=== PATIENT | male | born 1930 | race Caucasian/White ===

== ENCOUNTER 2017-01-11 10:55 | Inpatient (IN) | payer MEDICARE, OTHER ==
--- NOTE | 2017-01-11 11:13 | EDM.PDOC ---
ED HPI GENERAL MEDICAL PROBLEM - General Chief Complaint: Lower Extremity Injury/Pain Stated Complaint: [facility] Time Seen by Provider: 01/11/17 11:13 Source of Information: Reports: Patient History Limitations: Reports: No Limitations - History of Present Illness INITIAL COMMENTS - FREE TEXT/NARRATIVE: 86-year-old male found on the [facility] at the [facility] this morning. Witnessed fall. Complaining of pain right hip and thigh area. Piece had previous surgery on his right hip. It's unclear whether he hit his head or whether there was any loss of consciousness. Patient is verbal and states his pain is mostly in his right hip. Denies pain in his ribs shoulders arms wrists or hands. Denies any back pain. Denies any neck pain. Onset: Today Onset Date: 01/11/17 Onset Time: 10:10 (Found on floor at the [facility]. Unwitnessed fall) Duration: Minutes: Location: Reports: Lower Extremity, Right Severity: Mild Improves with: Reports: None Worsens with: Reports: None Context: Reports: Other Associated Symptoms: Reports: Confusion, Shortness of Breath (At rest). 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 They did not identify any outward signs of trauma therefore they did not start an IV and he did not receive any pain medication.) - Related Data Allergies Allergy/AdvReac Type Severity Reaction Status Date / Time No Known Allergies Allergy Verified 01/11/17 11:10 Home Meds: Home Meds Acetaminophen [Tylenol] 500 mg PO TID 01/11/17 [History] Amoxicillin 2,000 mg PO ASDIRECTED 01/11/17 [History] Bumetanide [Bumex] 1 mg PO BID 01/11/17 [History] Citalopram [Celexa] 30 mg PO BEDTIME 01/11/17 [History] Diltiazem [Cardizem CD] 240 mg PO DAILY 01/11/17 [History] Donepezil HCl [Aricept] 10 mg PO DAILY 01/11/17 [History] FA/Lycopene/Lut/MV,Ca,Iron,Min [Centrum] 1 tab PO DAILY 01/11/17 [History] Finasteride [Proscar] 5 mg PO BEDTIME 01/11/17 [History] Insulin Glarg,Human.Rec.Analog [LantUS Solostar] 10 units INJECT DAILY 01/11/17 [History] LORazepam [Ativan] 1 mg PO BID 01/11/17 [History] Lisinopril 20 mg PO BID 01/11/17 [History] Loperamide [Imodium] 2 mg PO ASDIRECTED PRN 01/11/17 [History] Memantine [Namenda] 10 mg PO BID 01/11/17 [History] Metolazone 2.5 mg PO MOWEFR 01/11/17 [History] [place]-3 Fatty Acids [[place]-3] 360 - 1,200 mg PO DAILY 01/11/17 [History] Pantoprazole Sodium [Protonix] 20 mg PO DAILY 01/11/17 [History] Psyllium Seed (With Sugar) [Metamucil Fiber Wafer] 2 wafer PO TID 01/11/17 [ History] Refresh Eye Drops 2 - 3 drop TOP ASDIRECTED PRN 01/11/17 [History] Simvastatin [Zocor] 10 mg PO DAILY 01/11/17 [History] Tamsulosin HCl [Flomax] 0.4 mg PO DAILY 01/11/17 [History] Vit A,C & E/Lutein/Minerals [Healthy Eyes] 1 tab PO DAILY 01/11/17 [History] medroxyPROGESTERone Acetate [Depo-Provera] 150 mg INJECT ASDIRECTED 01/11/17 [ History] traMADol [Ultram] 50 mg PO Q12H PRN 01/11/17 [History] Past Medical History Cardiovascular History: Reports: Bypass, CAD, High Cholesterol, Hypertension Gastrointestinal History: Reports: Chronic Constipation, GERD Genitourinary History: Reports: BPH, Other (See Below) (Reported urinary incontinence. 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 Has had right shoulder surgery 2) Skin: Reports: Bruising (Bruises easily) Neurological: Reports: Confusion (Moderate confusion. Early dementia changes evident.), Difficulty Walking Psychiatric: Reports: Confusion, Depression ED EXAM, GENERAL - Physical Exam Exam: See Below Exam Limited By: Other (Patient tries to answer most questions and I feel the answers are appropriate. He has a lethargic appearance and a minimal facial expression suggestive of Parkinson's disease.) General Appearance: Lethargic, Other (Minimal facial expressions) Eye Exam: Bilateral Eye: Normal Inspection Nose: Normal Inspection Throat/Mouth: Normal Inspection, Other (Tongue is a little on the dry side.) Head: Atraumatic, Normocephalic Neck: Normal Inspection, Supple, Non-Tender, Full Range of Motion Respiratory/Chest: No Respiratory Distress, Lungs Clear, Normal Breath Sounds, No Accessory Muscle Use, Other (No pain on compression of his ribs and sternum.) Cardiovascular: Regular Rate, Rhythm, No Edema, No Gallop, No Murmur, No Rub, Other (Well-healed midline sternotomy incision.). No: Normal Peripheral Pulses Peripheral Pulses: 1+: Posterior Tibial (L), Posterior Tibial (R), Dorsalis Pedis (L), Dorsalis Pedis (R) GI/Abdominal: Normal Bowel Sounds, Soft, Non-Tender, No Organomegaly, Other Back Exam: Normal Inspection, Full Range of Motion, Other (No evidence of any contusions abrasions or localized pain to any of the spinous processes of his back.) Extremities: Other (Patient has a well-healed right lateral hip incision scar. He is stiff on movement of his lower extremities and will not hardly allow me to bend them at the knee or hip to assess function. Mild pain on lifting the right leg off the gurney. No evidence of any injuries to his hands wrists elbows or shoulders. Knees are intact.) Neurological: CN II-XII Intact, Slow to Respond Psychiatric: Flat Affect Skin Exam: Warm, Dry, Intact, Normal Color, No Rash, Other (Bruising dorsal aspect of left hand which appears to be several days old.) EKG INTERPRETATION EKG Date: 01/11/17 Time: 11:30 Rhythm: NSR Rate (Beats/Min): 82 [place]: Normal P-Wave: Present QRS: RBBB (First-degree AV block) ST-T: Other (T-wave inversion V3 V4 nonspecific. 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 Care 01/11/17 13:45 Ordered PC] Q24H Urinary Catheter Assessment [RC] ASDIRECTED Care 01/11/17 13:41 Active Sodium Chloride 0.9% [Normal Saline] 1,000 ml Med 01/11/17 11:30 Active IV ASDIRECTED Medication Orders Sodium Chloride (Normal Saline) 1,000 mls @ 150 mls/hr IV ASDIRECTED BRENDA Last Admin: 01/11/17 11:40 Dose: 150 mls/hr Labs: Laboratory Tests 01/11/17 01/11/17 01/11/17 Range/Units 11:04 11:04 11:04 WBC 12.33 H (4.23-9.07) K/mm3 RBC 3.59 L (4.63-6.08) M/mm3 Hgb 11.7 L (13.7-17.5) gm/L Hct 34.6 L (40.1-51.0) % MCV 96.4 H (79.0-92.2) fl MCH 32.6 H (25.7-32.2) pg MCHC 33.8 (32.2-35.5) g/dl RDW Std Deviation 43.6 (35.1-43.9) fL Plt Count 216 (163-337) K/mm3 MPV 10.5 (9.4-12.3) fl Neutrophils % (Manual) 76 H (40-60) % Band Neutrophils % 0 (0-10) % Lymphocytes % (Manual) 5 L (20-40) % Atypical Lymphs % 14 % Monocytes % (Manual) 5 (2-10) % Eosinophils % (Manual) 0 L (0.8-7.0) % Basophils % (Manual) 0 L (0.2-1.2) Platelet Estimate Adequate Hypochromasia 1+ slight Anisocytosis 1+ slight RBC Morph Comment Abnormal PT (8.0-13.0) SECONDS INR APTT (22-36) SECONDS Sodium 139 (136-145) mEq/L Potassium 3.7 (3.5-5.1) mEq/L Chloride 100 (98-107) mEq/L Carbon Dioxide 26 (21-32) mEq/L Anion Gap 16.7 H (5-15) BUN 92 H (7-18) mg/dL Creatinine 4.5 H (0.7-1.3) mg/dL Est Cr Clr Drug Dosing TNP Estimated GFR (MDRD) 12 (>60) mL/min BUN/Creatinine Ratio 20.4 H (14-18) Glucose 139 H (83-115) mg/dL Calcium 9.5 (8.5-10.1) mg/dL Total Bilirubin 0.9 (0.2-1.0) mg/dL AST 23 (15-37) U/L ALT 27 (16-63) U/L Alkaline Phosphatase 46 (46-116) U/L Troponin I < 0.017 (0.00-0.056) ng/mL NT-Pro-B Natriuret Pep 924 H (0-450) pg/mL Total Protein 6.4 (6.4-8.2) g/dl Albumin 3.3 L (3.4-5.0) g/dl Globulin 3.1 gm/dL Albumin/Globulin Ratio 1.1 (1-2) Blood Type B POSITIVE 01/11/17 Range/Units 11:04 WBC (4.23-9.07) K/mm3 RBC (4.63-6.08) M/mm3 Hgb (13.7-17.5) gm/L Hct (40.1-51.0) % MCV (79.0-92.2) fl MCH (25.7-32.2) pg MCHC (32.2-35.5) g/dl RDW Std Deviation (35.1-43.9) fL Plt Count (163-337) K/mm3 MPV (9.4-12.3) fl Neutrophils % (Manual) (40-60) % Band Neutrophils % (0-10) % Lymphocytes % (Manual) (20-40) % Atypical Lymphs % % Monocytes % (Manual) (2-10) % Eosinophils % (Manual) (0.8-7.0) % Basophils % (Manual) (0.2-1.2) Platelet Estimate Hypochromasia Anisocytosis RBC Morph Comment PT 11.1 (8.0-13.0) SECONDS INR 1.02 APTT 29 (22-36) SECONDS Sodium (136-145) mEq/L Potassium (3.5-5.1) mEq/L Chloride (98-107) mEq/L Carbon Dioxide (21-32) mEq/L Anion Gap (5-15) BUN (7-18) mg/dL Creatinine (0.7-1.3) mg/dL Est Cr Clr Drug Dosing Estimated GFR (MDRD) (>60) mL/min BUN/Creatinine Ratio (14-18) Glucose (83-115) mg/dL Calcium (8.5-10.1) mg/dL Total Bilirubin (0.2-1.0) mg/dL AST (15-37) U/L ALT (16-63) U/L Alkaline Phosphatase (46-116) U/L Troponin I (0.00-0.056) ng/mL NT-Pro-B Natriuret Pep (0-450) pg/mL Total Protein (6.4-8.2) g/dl Albumin (3.4-5.0) g/dl Globulin gm/dL Albumin/Globulin Ratio (1-2) Blood Type Meds: Medications Generic Name Dose Route Start Last Admin Trade Name Freq PRN Reason Stop Dose Admin Sodium Chloride 1,000 mls @ 150 mls/hr 01/11/17 11:30 01/11/17 11:40 Normal Saline IV 150 mls/hr ASDIRECTED BRENDA Administration Discontinued Medications Generic Name Dose Route Start Last Admin Trade Name [place] PRN Reason Stop Dose Admin Fentanyl 50 mcg 01/11/17 11:22 01/11/17 11:35 Sublimaze IVPUSH 01/11/17 11:23 50 mcg ONETIME ONE Administration Lidocaine HCl 10 ml 01/11/17 13:57 Xylocaine 2% Jelly MUCMEM 01/11/17 13:58 ONETIME ONE - Radiology Interpretation Free Text/Narrative:: 86-year-old male brought to the ED after being found on the floor his [facility] room after suffering a fall. Was unwitnessed and therefore it's unclear how her what happened. There is some suggestion by the nursing staff that he hit his head. I could find no outward signs of head trauma however. 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 At any rate he complains of pain in his right hip which is been previously repaired. It appears that he's had a total hip replacement. I can find no other signs of injury to his spine neck upper extremities or knees etc. Plan will be head CT routine labs ECG. Pelvis films and right femur. IV will be normal saline 150 mils per hour. Given fentanyl 50 g IV for pain relief. - Re-Assessments/Exams Free Text/Narrative Re-Assessment/Exam: 01/11/17 11:47 ECG does show sinus rhythm at 82/m with a rather short OK interval. There is a right bundle branch block pattern. There is T-wave inversion V2 to the 4. There is small Q waves in II, III, and F aVF suggestive of an old inferior wall myocardial infarction. There is decreased voltage in the limb leads. 01/11/17 12:34 CT of the head reveals advanced degenerative changes particularly with small vessel ischemic changes in both the white and le matter. There is small vessel ischemic changes in various both post basal ganglia with is encephalomalacia of both anterior posterior horns of the lateral ventricles. Is no sign of intracranial hemorrhage or mass effect. There is no skull fracture. X-ray of the pelvis is within normal limits. 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 X-ray of the right femur shows no fracture below his prosthesis. Therefore appears to have suffered contusions only. Chest x-ray also revealed a marked cardiomegaly with no signs of significant failure 01/11/17 12:40 lab work reveals a mildly elevated white count at 12.33 with 76% neutrophils and 0% bands hemoglobin is a little on the low side 11.7 hematocrit is 34.6 platelets 216,000. There is 14% atypical lymphocytes reported and therefore a peripheral smear needs to be done. Chemistry shows a sodium of 139 potassium 3.7 chloride 100 bicarbonate 24. And a gap is slightly elevated at 16.7 BUNs and is markedly elevated at 92 creatinine is 4.5.eGFR is only 12. This is stage IV chronic kidney disease. BNP is elevated at 924. Troponin is less than 0.017. I therefore contacted his usual care provider Dr. Kelby Damon and he indicates that these levels are markedly elevated compared to his norm. Of note I do not have any chart notes or labs to compare to. It appears that he is therefore severely volume depleted. I will check his med list thoroughly to see if there is something that precipitated acute decline in his renal function. No notes indicate that his dementia is fairly severe and that he tends to be incontinent of urine and therefore is in a depends. I will have a bladder scan done to see if he is in retention causing his acute renal insufficiency 01/11/17 13:27 year bladder scan suggests 560 mils of urine within the bladder suggesting obstruction. Therefore Whitmore catheter will be placed with plans to leave it in place to relieve potential obstructive uropathy. There is some suggestion in the notes that he has only one kidney and was perhaps born this way. We'll have a CT of the abdomen done per renal protocol to see if there is anything else going on in the abdomen and which kidney is present and is ready disease obvious within this kidney. 01/11/17 13:55 the right kidney is present the left is absent on CT. Diffuse atherosclerotic calcification throughout the aorta and particularly the common iliac arteries bilaterally. Pancreas is mildly atrophic. Liver shows a slightly inhomogenous appearance but without contrast unable to define if the cystic lesions within the liver itself. 01/11/17 14:27 currently he's had about 900 mils of urine drainage after Whitmore catheter placement. I will discuss case with hospitalist --Dr Ye he may develop post about obstructive uropathy diuresis. CODE STATUS is listed as DO NOT RESUSCITATE. Departure - Departure Time of Disposition: 14:31 Disposition: Admitted As Inpatient 64 Condition: Poor Clinical Impression: Chronic renal insufficiency, stage IV (severe), Obstructive uropathy Dementia Qualifiers: Dementia type: Alzheimer's disease Alzheimer's disease onset: late-onset Dementia behavioral disturbance: without behavioral disturbance Qualified Code(s ): G30.1 - Alzheimer's disease with late onset Fall as cause of accidental injury at home as place of occurrence Qualifiers: Encounter type: initial encounter Qualified Code(s): W19.XXXA - Unspecified fall, initial encounter Congestive heart failure Qualifiers: Congestive heart failure type: diastolic Congestive heart failure chronicity: chronic Qualified Code(s): I50.32 - Chronic diastolic (congestive) heart failure - Discharge Information Referrals: Mane Barnhart MD [Primary Care Provider] - Forms: ED Department Discharge - My Orders Last 24 Hours: My Active Orders 01/11/17 11:22 EKG Documentation Completion [RC] STAT 01/11/17 11:30 Sodium Chloride 0.9% [Normal Saline] 1,000 ml IV ASDIRECTED 01/11/17 13:41 Urinary Catheter Assessment [RC] ASDIRECTED 01/11/17 13:45 Whitmore Catheter Insertion [Insert Urinary Catheter] [OM.PC] Q24H - Assessment/Plan Last 24 Hours: My Active Orders 01/11/17 11:22 EKG Documentation Completion [RC] STAT 01/11/17 11:30 Sodium Chloride 0.9% [Normal Saline] 1,000 ml IV ASDIRECTED 01/11/17 13:41 Urinary Catheter Assessment [RC] ASDIRECTED 01/11/17 13:45 Whitmore Catheter Insertion [Insert Urinary Catheter] [OM.PC] Q24H
[2017-01-11] MEDS ORDERED: fentaNYL 100 MCG/2 ML SDV IVPUSH ONE (11:22)
[2017-01-11] MEDS: Sodium Chloride 0.9% 1,000 ML IV SCH ×2 (11:40→19:40)
--- NOTE | 2017-01-11 12:39 | CT ---
Head CT Technique: Multiple axial sections through the brain were obtained. Intravenous contrast was not utilized. Comparison: No previous intracranial imaging. Findings: Ventricles along with basal cisterns and sulci over convexities are moderately prominent. Atherosclerotic calcification is seen within the carotid siphon and within the vertebral vessels. Mild to moderate diminished density is noted within the periventricular and subcortical white matter as well as within portions of the basal ganglia which is compatible with small vessel ischemic demyelination change. No other abnormal parenchymal densities are seen. Incidental calcifications along the interhemispheric falx are noted. No midline shift or mass effect is seen. Bone window settings were reviewed which shows mild mucosal thickening within the right maxillary sinus as well as within the ethmoid sinuses. No acute calvarial abnormality is identified. Impression: 1. Senescent change as described above. Mild sinus findings which are likely incidental. 2. Nothing acute is identified on noncontrast head CT exam. Diagnostic code #2
[2017-01-11] MEDS ORDERED: Lidocaine 2% Jelly 10 ML Urojet MUCMEM ONE (13:57)
--- NOTE | 2017-01-11 14:20 | CT ---
CT abdomen and pelvis Technique: Multiple axial sections were obtained from above the dome of the diaphragm inferiorly through the pubic symphysis. Intravenous and oral contrast not utilized. Comparison: No previous CT imaging. Findings: Visualized lung bases shows nothing acute. Noncontrast appearance of the liver shows a low-density lesion within the dome of the right lobe of the liver which appears next to the ligamentum teres fissure and either represents small amount of adjacent fat or small cyst. Spleen appears within normal limits. Adrenal glands show no nodule. Pancreas appears within normal limits. Left kidney not seen. Right kidney shows vascular calcification without hydronephrosis. Aorta shows diffuse atherosclerotic change without aneurysmal dilatation. No retroperitoneal adenopathy is seen. No mesenteric abnormalities are noted. Diverticuli are seen within the sigmoid colon with no inflammatory change. Artifact noted within the pelvis from bilateral hip prosthesis. Diffuse degenerative change is seen throughout the lumbar spine. Catheter is seen within the urethra which presumably terminates within a nonvisualized portion of the bladder scattered from artifact from bilateral hip prosthesis. Impression: 1. Multiple findings which are felt to be incidental. Nothing acute is appreciated on noncontrast CT study of the abdomen and pelvis. Diagnostic code #2
--- NOTE | 2017-01-11 14:23 | CR ---
Pelvis: AP view of the pelvis was obtained. Bilateral hip prosthesis are seen. Degenerative change is noted within the lower lumbar spine with disc space narrowing and osteophytes. Sacroiliac joints are within normal limits. Bony structures are osteopenic. Vascular calcification is noted. No acute bony abnormality is identified. Impression: 1. Findings as noted above. Nothing acute is appreciated. Diagnostic code #2
--- NOTE | 2017-01-11 14:23 | CR ---
Right femur: AP and lateral views of the right femur were obtained. Comparison: Previous right hip study of 07/28/11. Hip prosthesis is seen. Components are aligned. Vascular calcification is seen. Degenerative change is partially visualized within the knee. Bony structures are osteopenic. No acute fracture or other bony abnormality is seen. Impression: 1. Incidental findings. Nothing acute is appreciated on two-view right femur study. Diagnostic code #2
--- NOTE | 2017-01-11 14:23 | CR ---
Chest: Frontal view of the chest was obtained. Comparison: Previous chest x-ray of 07/28/11. Heart is enlarged. Tortuous thoracic aorta is seen. Right shoulder prosthesis is noted. Lungs are clear with no acute infiltrates. Impression: 1. Findings as described above. Nothing acute is appreciated. Diagnostic code #2
[2017-01-11] MEDS ORDERED: cefTRIAXone 2 GM in Sodium Chloride 0.9% 100 ML IV SCH (15:30)
[2017-01-11] MEDS ORDERED: 50% Dextrose in Water 50 ML Syringe IVPUSH PRN (15:30)
[2017-01-11] MEDS ORDERED: MEDROXYPROGESTERONE ACETATE 150 MG INJECT SCH (15:30)
--- NOTE | 2017-01-11 15:46 | PCM.HP ---
H&P History of Present Illness - General Date of Service: 01/11/17 Admit Problem/Dx: Admission Diagnosis/Problem Admission Diagnosis/Problem Renal insufficiency Source of Information: Old Records, Provider, RN Notes Reviewed History Limitations: Reports: No Limitations, Altered Mental Status - History of Present Illness Onset of Symptoms: Reports: Sudden Symptom Onset Date: 01/11/17 Duration of Symptoms: Reports: Hour(s):, Getting Worse Location: Reports: Lower Extremity, Right, Generalized Severity: Moderate Improves with: Reports: None Worsens with: Reports: None Associated Symptoms: Reports: Confusion, Weakness - Related Data Allergies/Adverse Reactions: Allergies Allergy/AdvReac Type Severity Reaction Status Date / Time No Known Allergies Allergy Verified 01/11/17 11:10 Home Medications: Home Meds Acetaminophen [Tylenol] 500 mg PO TID 01/11/17 [History] Amoxicillin 2,000 mg PO ASDIRECTED 01/11/17 [History] Bumetanide [Bumex] 1 mg PO BID 01/11/17 [History] Citalopram [Celexa] 30 mg PO BEDTIME 01/11/17 [History] Diltiazem [Cardizem CD] 240 mg PO DAILY 01/11/17 [History] Donepezil HCl [Aricept] 10 mg PO DAILY 01/11/17 [History] FA/Lycopene/Lut/MV,Ca,Iron,Min [Centrum] 1 tab PO DAILY 01/11/17 [History] Finasteride [Proscar] 5 mg PO BEDTIME 01/11/17 [History] Insulin Glarg,Human.Rec.Analog [LantUS Solostar] 10 units INJECT DAILY 01/11/17 [History] LORazepam [Ativan] 1 mg PO BID 01/11/17 [History] Lisinopril 20 mg PO BID 01/11/17 [History] Loperamide [Imodium] 2 mg PO ASDIRECTED PRN 01/11/17 [History] Memantine [Namenda] 10 mg PO BID 01/11/17 [History] Metolazone 2.5 mg PO MOWEFR 01/11/17 [History] [place]-3 Fatty Acids [[place]-3] 360 - 1,200 mg PO DAILY 01/11/17 [History] Pantoprazole Sodium [Protonix] 20 mg PO DAILY 01/11/17 [History] Psyllium Seed (With Sugar) [Metamucil Fiber Wafer] 2 wafer PO TID 01/11/17 [ History] Refresh Eye Drops 2 - 3 drop TOP ASDIRECTED PRN 01/11/17 [History] Simvastatin [Zocor] 10 mg PO DAILY 01/11/17 [History] Tamsulosin HCl [Flomax] 0.4 mg PO DAILY 01/11/17 [History] Vit A,C & E/Lutein/Minerals [Healthy Eyes] 1 tab PO DAILY 01/11/17 [History] medroxyPROGESTERone Acetate [Depo-Provera] 150 mg INJECT ASDIRECTED 01/11/17 [ History] traMADol [Ultram] 50 mg PO Q12H PRN 01/11/17 [History] Past Medical History Cardiovascular History: Reports: Bypass, CAD, High Cholesterol, Hypertension Gastrointestinal History: Reports: Chronic Constipation, GERD Genitourinary History: Reports: BPH, Other (See Below) (Reported urinary incontinence. 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 ) Musculoskeletal History: Reports: Osteoarthritis, Other (See Below) (Previous right hip surgery) Neurological History: Reports: Alzheimers Disease Psychiatric History: Reports: Anxiety Endocrine/Metabolic History: Reports: Diabetes, Type II (On insulin for blood sugar control.), Obesity/BMI 30+ - Past Surgical History Cardiovascular Surgical History: Reports: Coronary Artery Bypass Musculoskeletal Surgical History: Reports: Other (See Below) Other Musculoskeletal Surgeries/Procedures:: difficulty walking; right hip surgery Social & Family History - Tobacco Use Smoking Status *Q: Unknown Ever Smoked - Caffeine Use Caffeine Use: Reports: Coffee - Recreational Drug Use Recreational Drug Use: No - Living Situation & Occupation Living situation: Reports: Extended Care Facility 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 Review of Systems - Review of Systems: Review Of Systems: See Below Exam - Vital Signs Vital Signs: Last Vital Signs Temp 36.9 C 01/11/17 11:03 Pulse 81 01/11/17 11:03 Resp 17 01/11/17 11:03 BP 125/44 L 01/11/17 11:03 Pulse Ox 96 01/11/17 11:03 Weight: 103.419 kg - Patient Data Lab Results Last 24 hrs: Laboratory Results - last 24 hr 01/11/17 Range/Units 14:45 Urine Color Yellow (Yellow) Urine Appearance Clear (Clear) Urine pH 6.0 (5.0-8.0) Ur Specific [place] 1.015 (1.005-1.030) Urine Protein Trace H (Negative) Urine Glucose (UA) Negative (Negative) Urine Ketones Negative (Negative) Urine Occult Blood 1+ H (Negative) Urine Nitrite Negative (Negative) Urine Bilirubin Negative (Negative) Urine Urobilinogen 0.2 (0.2-1.0) Ur Leukocyte Esterase Negative (Negative) Result Diagrams: 01/11/17 11:04 01/11/17 11:04 *Q Meaningful Use (ADM) - VTE *Q VTE Criteria *Q: - Stroke *Q Stroke Criteria *Q: - AMI *Q AMI Criteria *Q: Orders Last 24hrs: Active Orders 24 hr Category Date Time Status Antiembolic Devices [RC] PER UNIT ROUTINE Care 01/11/17 15:28 Ordered Bedrest Bathroom Privileges [RC] ASDIRECTED Care 01/11/17 15:21 Ordered Blood Glucose Check, Bedside [RC] Q6HR Care 01/11/17 15:30 Ordered Vital Signs [RC] PER UNIT ROUTINE Care 01/11/17 15:21 Ordered NPO [Nothing Per Oral Diet] [DIET] Diet 01/11/17 Dinner Active Renal Non-Dialysis Diet [DIET] Diet 01/12/17 Breakfast Ordered BMP [BASIC METABOLIC PANEL,BMP] [CHEM] DAILY Lab 01/12/17 05:00 Ordered BMP [BASIC METABOLIC PANEL,BMP] [CHEM] DAILY Lab 01/13/17 05:00 Ordered BMP [BASIC METABOLIC PANEL,BMP] [CHEM] DAILY Lab 01/14/17 05:00 Ordered BMP [BASIC METABOLIC PANEL,BMP] [CHEM] DAILY Lab 01/15/17 05:00 Ordered CBC WITH AUTO DIFF [HEME] DAILY Lab 01/12/17 05:00 Ordered CBC WITH AUTO DIFF [HEME] DAILY Lab 01/13/17 05:00 Ordered CBC WITH AUTO DIFF [HEME] DAILY Lab 01/14/17 05:00 Ordered CBC WITH AUTO DIFF [HEME] DAILY Lab 01/15/17 05:00 Ordered CRP [C-REACTIVE PROTEIN] [CHEM] DAILY Lab 01/12/17 05:00 Ordered CRP [C-REACTIVE PROTEIN] [CHEM] DAILY Lab 01/13/17 05:00 Ordered CRP [C-REACTIVE PROTEIN] [CHEM] DAILY Lab 01/14/17 05:00 Ordered CRP [C-REACTIVE PROTEIN] [CHEM] DAILY Lab 01/15/17 05:00 Ordered MAGNESIUM [CHEM] DAILY Lab 01/12/17 05:00 Ordered MAGNESIUM [CHEM] DAILY Lab 01/13/17 05:00 Ordered MAGNESIUM [CHEM] DAILY Lab 01/14/17 05:00 Ordered MAGNESIUM [CHEM] DAILY Lab 01/15/17 05:00 Ordered URINALYSIS W/MICROSCOPIC [UA W/MICROSCOPIC] [URIN] Stat Lab 01/11/17 14:45 Results Citalopram [Celexa] Med 01/11/17 21:00 Ordered 30 mg PO BEDTIME Dextrose 50% in Water Med 01/11/17 15:30 Ordered 50 ml IVPUSH ASDIRECTED PRN Diltiazem Med 01/12/17 09:00 Ordered 240 mg PO DAILY Donepezil [Aricept] Med 01/12/17 09:00 Ordered 10 mg PO DAILY Enoxaparin [Lovenox] Med 01/12/17 09:00 Ordered 30 mg SUBCUT DAILY Finasteride [Proscar] Med 01/11/17 21:00 Ordered 5 mg PO BEDTIME Insulin Aspart [NovoLOG] Med 01/11/17 15:30 Ordered See Protocol SUBCUT QIDACANDBED LORazepam [Ativan] Med 01/11/17 21:00 Ordered 1 mg PO BID Memantine [Namenda] Med 01/11/17 21:00 Ordered 10 mg PO BID Simvastatin [Zocor] Med 01/12/17 09:00 Ordered 10 mg PO DAILY Tamsulosin [Flomax] Med 01/12/17 09:00 Ordered 0.4 mg PO DAILY cefTRIAXone [Rocephin] 2 gm Med 01/11/17 15:30 Ordered Sodium Chloride 0.9% [Normal Saline] 100 ml IV Q24H NAVYA Hose [Antiembolic Hose] [OM.PC] Routine Oth 01/11/17 15:28 Ordered Code Status [Resuscitation Status] Routine Resus Stat 01/11/17 15:22 Ordered Medication Orders Citalopram Hydrobromide (Celexa) 30 mg PO BEDTIME [facility] Dextrose/Water (Dextrose 50% In Water) 50 ml IVPUSH ASDIRECTED PRN PRN Reason: Hypoglycemia Diltiazem HCl (Dilacor Xr) 240 mg PO DAILY [facility] Donepezil HCl (Aricept) 10 mg PO DAILY [facility] Enoxaparin Sodium (Lovenox) 30 mg SUBCUT DAILY [facility] Finasteride (Proscar) 5 mg PO BEDTIME [facility] Sodium Chloride (Normal Saline) 1,000 mls @ 150 mls/hr IV ASDIRECTED [facility] Last Admin: 01/11/17 11:40 Dose: 150 mls/hr Ceftriaxone Sodium 2 gm/ (Sodium Chloride) 100 mls @ 200 mls/hr IV Q24H [facility] Insulin Aspart (Novolog) 0 unit SUBCUT QIDACANDBED [facility] PRN Reason: Protocol Lorazepam (Ativan) 1 mg PO BID [facility] Memantine (Namenda) 10 mg PO BID [facility] Simvastatin (Zocor) 10 mg PO DAILY [facility] Tamsulosin HCl (Flomax) 0.4 mg PO DAILY [facility]
--- NOTE | 2017-01-11 16:04 | PCM.HP ---
H&P History of Present Illness - General Date of Service: 01/11/17 Admit Problem/Dx: Admission Diagnosis/Problem Admission Diagnosis/Problem Renal insufficiency Source of Information: Old Records, Provider, RN Notes Reviewed History Limitations: Reports: No Limitations - History of Present Illness Initial Comments - Free Text/Narative: 86 year old male [facility] resident presented after falling. Unremarkable work up for acute fracture or SPLITTER HAND bleed. He has baseline Alzheimer dementia. Had been takin Amoxicillin for a UTI. Has one kidney and probable baseline CKD III , however currently laboratory studies support CKD IV in acute failure. [facility] [place] [facility]. Onset of Symptoms: Reports: Sudden Duration of Symptoms: Reports: Hour(s):, Getting Worse Location: Reports: Lower Extremity, Right, Generalized Severity: Moderate Improves with: Reports: None Worsens with: Reports: None Associated Symptoms: Reports: Confusion, Weakness - Related Data Allergies/Adverse Reactions: Allergies Allergy/AdvReac Type Severity Reaction Status Date / Time No Known Allergies Allergy Verified 01/11/17 11:10 Home Medications: Home Meds Acetaminophen [Tylenol] 500 mg PO TID 01/11/17 [History] Amoxicillin 2,000 mg PO ASDIRECTED 01/11/17 [History] Bumetanide [Bumex] 1 mg PO BID 01/11/17 [History] Citalopram [Celexa] 30 mg PO BEDTIME 01/11/17 [History] Diltiazem [Cardizem CD] 240 mg PO DAILY 01/11/17 [History] Donepezil HCl [Aricept] 10 mg PO DAILY 01/11/17 [History] FA/Lycopene/Lut/MV,Ca,Iron,Min [Centrum] 1 tab PO DAILY 01/11/17 [History] Finasteride [Proscar] 5 mg PO BEDTIME 01/11/17 [History] Insulin Glarg,Human.Rec.Analog [LantUS Solostar] 10 units INJECT DAILY 01/11/17 [History] LORazepam [Ativan] 1 mg PO BID 01/11/17 [History] Lisinopril 20 mg PO BID 01/11/17 [History] Loperamide [Imodium] 2 mg PO ASDIRECTED PRN 01/11/17 [History] Memantine [Namenda] 10 mg PO BID 01/11/17 [History] Metolazone 2.5 mg PO MOWEFR 01/11/17 [History] [place]-3 Fatty Acids [[place]-3] 360 - 1,200 mg PO DAILY 01/11/17 [History] Pantoprazole Sodium [Protonix] 20 mg PO DAILY 01/11/17 [History] Psyllium Seed (With Sugar) [Metamucil Fiber Wafer] 2 wafer PO TID 01/11/17 [ History] Refresh Eye Drops 2 - 3 drop TOP ASDIRECTED PRN 01/11/17 [History] Simvastatin [Zocor] 10 mg PO DAILY 01/11/17 [History] Tamsulosin HCl [Flomax] 0.4 mg PO DAILY 01/11/17 [History] Vit A,C & E/Lutein/Minerals [Healthy Eyes] 1 tab PO DAILY 01/11/17 [History] medroxyPROGESTERone Acetate [Depo-Provera] 150 mg INJECT ASDIRECTED 01/11/17 [ History] traMADol [Ultram] 50 mg PO Q12H PRN 01/11/17 [History] Past Medical History Cardiovascular History: Reports: Bypass, CAD, High Cholesterol, Hypertension Gastrointestinal History: Reports: Chronic Constipation, GERD Genitourinary History: Reports: BPH, Other (See Below) (Reported urinary incontinence. 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 ) Musculoskeletal History: Reports: Osteoarthritis, Other (See Below) (Previous right hip surgery) Neurological History: Reports: Alzheimers Disease Psychiatric History: Reports: Anxiety Endocrine/Metabolic History: Reports: Diabetes, Type II (On insulin for blood sugar control.), Obesity/BMI 30+ - Past Surgical History Cardiovascular Surgical History: Reports: Coronary Artery Bypass Musculoskeletal Surgical History: Reports: Other (See Below) Other Musculoskeletal Surgeries/Procedures:: difficulty walking; right hip surgery Social & Family History - Tobacco Use Smoking Status *Q: Unknown Ever Smoked - Caffeine Use Caffeine Use: Reports: Coffee - Recreational Drug Use Recreational Drug Use: No - Living Situation & Occupation Living situation: Reports: Extended Care Facility 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 Review of Systems - Review of Systems: Review Of Systems: See Below General: Reports: Weakness Pulmonary: Reports: Shortness of Breath, Cough, Sputum Cardiovascular: Reports: No Symptoms Gastrointestinal: Reports: No Symptoms Genitourinary: Reports: No Symptoms Musculoskeletal: Reports: Leg Pain (right) Skin: Reports: No Symptoms Psychiatric: Reports: Confusion Neurological: Reports: No Symptoms Hematologic/Lymphatic: Reports: No Symptoms Immunologic: Reports: No Symptoms Exam - Exam Exam: See Below - Vital Signs Vital Signs: Last Vital Signs Temp 36.9 C 01/11/17 11:03 Pulse 81 01/11/17 11:03 Resp 17 01/11/17 11:03 BP 125/44 L 01/11/17 11:03 Pulse Ox 96 01/11/17 11:03 Weight: 103.419 kg - Exam Quality Assessment: Urinary Catheter General: Alert, Oriented HEENT: EOMI, Pupils Equal, Pupils Reactive Neck: Supple, Trachea Midline Lungs: Normal Respiratory Effort Cardiovascular: Regular Rate, Regular Rhythm GI/Abdominal Exam: Normal Bowel Sounds, Soft, Non-Tender, No Distention (Male) Exam: Deferred Rectal (Males) Exam: Deferred Back Exam: Normal Inspection Extremities: Normal Inspection Skin: Warm Neurological: Cranial Nerves Intact Neuro Extensive - Mental Status: Alert Neuro Extensive - Motor, Sensory, Reflexes: CN II-XII Intact Psychiatric: Alert - Patient Data Lab Results Last 24 hrs: Laboratory Results - last 24 hr 01/11/17 Range/Units 14:45 Urine Color Yellow (Yellow) Urine Appearance Clear (Clear) Urine pH 6.0 (5.0-8.0) Ur Specific [place] 1.015 (1.005-1.030) Urine Protein Trace H (Negative) Urine Glucose (UA) Negative (Negative) Urine Ketones Negative (Negative) Urine Occult Blood 1+ H (Negative) Urine Nitrite Negative (Negative) Urine Bilirubin Negative (Negative) Urine Urobilinogen 0.2 (0.2-1.0) Ur Leukocyte Esterase Negative (Negative) Urine RBC 0-5 (0-5) /hpf Urine WBC 0-5 (0-5) /hpf Ur Epithelial Cells 0-5 (0-5) /hpf Amorphous Sediment Few H (NOT SEEN) /hpf Urine Bacteria Not seen (FEW) /hpf Urine Mucus Not seen (FEW) /hpf Result Diagrams: 01/11/17 11:04 01/11/17 11:04 *Q Meaningful Use (ADM) - VTE *Q VTE Criteria *Q: - Stroke *Q Stroke Criteria *Q: - AMI *Q AMI Criteria *Q: - Problem List (1) Chronic renal insufficiency, stage IV (severe) SNOMED Code(s): 78430656 ICD Code: N18.4 - CHRONIC KIDNEY DISEASE, STAGE 4 (SEVERE) Status: Acute Current Visit: Yes (2) Congestive heart failure SNOMED Code(s): 68364752 ICD Code: I50.9 - HEART FAILURE, UNSPECIFIED Status: Acute Current Visit : Yes Qualifiers: Congestive heart failure type: diastolic Congestive heart failure chronicity: chronic Qualified Code(s): I50.32 - Chronic diastolic (congestive ) heart failure (3) Dementia SNOMED Code(s): 89577049 ICD Code: F03.90 - UNSPECIFIED DEMENTIA WITHOUT BEHAVIORAL DISTURBANCE Status: Acute Current Visit: Yes Qualifiers: Dementia type: Alzheimer's disease Alzheimer's disease onset: late-onset Dementia behavioral disturbance: without behavioral disturbance Qualified Code (s): G30.1 - Alzheimer's disease with late onset; F02.80 - Dementia in other diseases classified elsewhere without behavioral disturbance (4) Fall as cause of accidental injury at home as place of occurrence SNOMED Code(s): 55522944 ICD Code: W19.XXXA - UNSPECIFIED FALL, INITIAL ENCOUNTER; Y92.009 - UNSP PLACE IN UNSP NON-INSTITUT (PRIVATE) RESIDENCE PLACE Status: Acute Current Visit: Yes Qualifiers: Encounter type: initial encounter Qualified Code(s): W19.XXXA - Unspecified fall, initial encounter; Y92.009 - Unspecified place in unspecified non-institutional (private) residence as the place of occurrence of the external cause (5) Obstructive uropathy SNOMED Code(s): 6917980 ICD Code: N13.9 - OBSTRUCTIVE AND REFLUX UROPATHY, UNSPECIFIED Status: Acute Current Visit: Yes Problem List Initiated/Reviewed/Updated: Yes Orders Last 24hrs: Active Orders 24 hr Category Date Time Status Antiembolic Devices [RC] DAILY Care 01/11/17 15:28 Active Bedrest Bathroom Privileges [RC] ASDIRECTED Care 01/11/17 15:21 Active Blood Glucose Check, Bedside [RC] Q6HR Care 01/11/17 15:30 Active Vital Signs [RC] 03,09,15,21 Care 01/11/17 15:21 Active NPO [Nothing Per Oral Diet] [DIET] Diet 01/11/17 Dinner Active Renal Non-Dialysis Diet [DIET] Diet 01/12/17 Breakfast Active BMP [BASIC METABOLIC PANEL,BMP] [CHEM] DAILY Lab 01/12/17 05:00 Ordered BMP [BASIC METABOLIC PANEL,BMP] [CHEM] DAILY Lab 01/13/17 05:00 Ordered BMP [BASIC METABOLIC PANEL,BMP] [CHEM] DAILY Lab 01/14/17 05:00 Ordered BMP [BASIC METABOLIC PANEL,BMP] [CHEM] DAILY Lab 01/15/17 05:00 Ordered CBC WITH AUTO DIFF [HEME] DAILY Lab 01/12/17 05:00 Ordered CBC WITH AUTO DIFF [HEME] DAILY Lab 01/13/17 05:00 Ordered CBC WITH AUTO DIFF [HEME] DAILY Lab 01/14/17 05:00 Ordered CBC WITH AUTO DIFF [HEME] DAILY Lab 01/15/17 05:00 Ordered CRP [C-REACTIVE PROTEIN] [CHEM] DAILY Lab 01/12/17 05:00 Ordered CRP [C-REACTIVE PROTEIN] [CHEM] DAILY Lab 01/13/17 05:00 Ordered CRP [C-REACTIVE PROTEIN] [CHEM] DAILY Lab 01/14/17 05:00 Ordered CRP [C-REACTIVE PROTEIN] [CHEM] DAILY Lab 01/15/17 05:00 Ordered MAGNESIUM [CHEM] DAILY Lab 01/12/17 05:00 Ordered MAGNESIUM [CHEM] DAILY Lab 01/13/17 05:00 Ordered MAGNESIUM [CHEM] DAILY Lab 01/14/17 05:00 Ordered MAGNESIUM [CHEM] DAILY Lab 01/15/17 05:00 Ordered Citalopram [Celexa] Med 01/11/17 21:00 Active 30 mg PO BEDTIME Dextrose 50% in Water Med 01/11/17 15:30 Active 50 ml IVPUSH ASDIRECTED PRN Diltiazem [Dilacor XR] Med 01/12/17 09:00 Active 240 mg PO DAILY Donepezil [Aricept] Med 01/12/17 09:00 Active 10 mg PO DAILY Enoxaparin [Lovenox] Med 01/12/17 09:00 Active 30 mg SUBCUT DAILY Finasteride [Proscar] Med 01/11/17 21:00 Active 5 mg PO BEDTIME Insulin Aspart [NovoLOG] Med 01/11/17 15:30 Active See Protocol SUBCUT QIDACANDBED LORazepam [Ativan] Med 01/11/17 21:00 Active 1 mg PO BID Memantine [Namenda] Med 01/11/17 21:00 Active 10 mg PO BID Simvastatin [Zocor] Med 01/12/17 09:00 Active 10 mg PO DAILY Tamsulosin [Flomax] Med 01/12/17 09:00 Active 0.4 mg PO DAILY cefTRIAXone [Rocephin] 2 gm Med 01/11/17 15:30 Active Sodium Chloride 0.9% [Normal Saline] 100 ml IV Q24H NAVYA Hose [Antiembolic Hose] [OM.PC] Routine Oth 01/11/17 15:28 Ordered Code Status [Resuscitation Status] Routine Resus Stat 01/11/17 15:22 Ordered Medication Orders Citalopram Hydrobromide (Celexa) 30 mg PO BEDTIME [facility] Dextrose/Water (Dextrose 50% In Water) 50 ml IVPUSH ASDIRECTED PRN PRN Reason: Hypoglycemia Diltiazem HCl (Dilacor Xr) 240 mg PO DAILY [facility] Donepezil HCl (Aricept) 10 mg PO DAILY [facility] Enoxaparin Sodium (Lovenox) 30 mg SUBCUT DAILY [facility] Finasteride (Proscar) 5 mg PO BEDTIME [facility] Sodium Chloride (Normal Saline) 1,000 mls @ 150 mls/hr IV ASDIRECTED [facility] Last Admin: 01/11/17 11:40 Dose: 150 mls/hr Ceftriaxone Sodium 2 gm/ (Sodium Chloride) 100 mls @ 200 mls/hr IV Q24H [facility] Insulin Aspart (Novolog) 0 unit SUBCUT QIDACANDBED [facility] PRN Reason: Protocol Lorazepam (Ativan) 1 mg PO BID [facility] Memantine (Namenda) 10 mg PO BID [facility] Simvastatin (Zocor) 10 mg PO DAILY [facility] Tamsulosin HCl (Flomax) 0.4 mg PO DAILY [facility] Assessment/Plan Comment:: Impression: Acute on chronic renal failure, stage IV AUTI S/P fall without injury AMS with baseline Alzheimer dementia Chronic CAD S/P CABG HLD HTN BPH Diabetes Mellitus Anxiety GERD Plan: IVF Diurese as needed Hold nephrotoxins IV ATBs Home meds Daily Labs DVT/GI prophylaxis CM/PT/OT
[2017-01-11] MEDS: Insulin Aspart 100 Units/ML 3 ML Pen SUBCUT SCH ×3 (17:40→23:56)
[2017-01-11] MEDS: Finasteride 5 MG Tab PO SCH (21:48)
[2017-01-11] MEDS: Citalopram 20 MG Tab PO SCH (21:49)
[2017-01-11] MEDS: Simvastatin 10 MG Tab PO SCH (21:49)
[2017-01-11] MEDS: LORazepam 1 MG Tab PO SCH (21:49)
[2017-01-11] MEDS: Donepezil 10 MG Tab PO SCH (21:50)
[2017-01-11] MEDS: Memantine 10 MG Tab PO SCH (21:50)
[2017-01-12] MEDS: Sodium Chloride 0.9% 1,000 ML IV SCH ×3 (04:43→23:18)
[2017-01-12] MEDS: Diltiazem 240 MG Cap.ER PO SCH (06:47)
[2017-01-12] MEDS: Insulin Aspart 100 Units/ML 3 ML Pen SUBCUT SCH ×4 (06:47→22:08)
[2017-01-12] MEDS: Saccharomyces Boulardii (Probiotic) 250 MG Cap PO SCH ×3 (08:46→20:46)
[2017-01-12] MEDS: Tamsulosin 0.4 MG Cap.ER PO SCH (08:47)
[2017-01-12] MEDS: LORazepam 1 MG Tab PO SCH ×2 (08:47→20:46)
[2017-01-12] MEDS: traMADol 50 MG Tab PO PRN (08:48)
[2017-01-12] MEDS: Enoxaparin 30 MG/0.3 ML Syringe SUBCUT SCH (08:49)
[2017-01-12] MEDS: Memantine 10 MG Tab PO SCH ×2 (08:49→20:46)
[2017-01-12] MEDS ORDERED: Diltiazem 240 MG Cap.ER PO SCH (09:00)
[2017-01-12] MEDS ORDERED: Donepezil 10 MG Tab PO SCH (09:00)
[2017-01-12] MEDS ORDERED: Simvastatin 10 MG Tab PO SCH (09:00)
[2017-01-12] MEDS: Potassium Chloride 10% 20 MEQ/15 ML Soln 30 ML UD Cup PO SCH ×2 (11:50→20:46)
--- NOTE | 2017-01-12 13:46 | PCM.PN ---
- General Info Date of Service: 01/12/17 Functional Status: Reports: Tolerating Diet - Review of Systems General: Reports: Weakness HEENT: Reports: No Symptoms Pulmonary: Reports: No Symptoms Cardiovascular: Reports: No Symptoms Gastrointestinal: Reports: No Symptoms Genitourinary: Reports: No Symptoms Musculoskeletal: Reports: No Symptoms Skin: Reports: No Symptoms Neurological: Reports: Confusion Psychiatric: Reports: Confusion - Patient Data Vitals - Most Recent: Last Vital Signs Temp 36.6 C 01/12/17 08:32 Pulse 73 01/12/17 08:32 Resp 20 01/12/17 08:32 BP 117/55 L 01/12/17 08:32 Pulse Ox 97 01/12/17 08:32 Weight - Most Recent: 102.376 kg I&O - Last 24 Hours: Intake & Output 01/11/17 01/12/17 01/12/17 22:59 06:59 14:59 Intake Total 1696 120 Output Total 1600 Balance 96 120 Lab Results Last 24 Hours: Laboratory Results - last 24 hr 01/11/17 01/11/17 01/11/17 Range/Units 14:45 17:28 18:35 WBC (4.23-9.07) K/mm3 RBC (4.63-6.08) M/mm3 Hgb (13.7-17.5) gm/L Hct (40.1-51.0) % MCV (79.0-92.2) fl MCH (25.7-32.2) pg MCHC (32.2-35.5) g/dl RDW Std Deviation (35.1-43.9) fL Plt Count (163-337) K/mm3 MPV (9.4-12.3) fl Neut % (Auto) (34.0-67.9) % Lymph % (Auto) (21.8-53.1) % [place] % (Auto) (5.3-12.2) % Eos % (Auto) (0.8-7.0) Baso % (Auto) (0.1-1.2) % Neut # (Auto) (1.78-5.38) K/mm3 Lymph # (Auto) (1.32-3.57) K/mm3 [place] # (Auto) (0.30-0.82) K/mm3 Eos # (Auto) (0.04-0.54) K/mm3 Baso # (Auto) (0.01-0.08) K/mm3 Sodium (136-145) mEq/L Potassium (3.5-5.1) mEq/L Chloride (98-107) mEq/L Carbon Dioxide (21-32) mEq/L Anion Gap (5-15) BUN (7-18) mg/dL Creatinine (0.7-1.3) mg/dL Est Cr Clr Drug Dosing mL/min Estimated GFR (MDRD) (>60) mL/min BUN/Creatinine Ratio (14-18) Glucose (83-115) mg/dL POC Glucose 131 H (83-110) mg/dL Calcium (8.5-10.1) mg/dL Magnesium (1.8-2.4) mg/dl C-Reactive Protein (<1.0) mg/dL Urine Color Yellow (Yellow) Urine Appearance Clear (Clear) Urine pH 6.0 (5.0-8.0) Ur Specific [place] 1.015 (1.005-1.030) Urine Protein Trace H (Negative) Urine Glucose (UA) Negative (Negative) Urine Ketones Negative (Negative) Urine Occult Blood 1+ H (Negative) Urine Nitrite Negative (Negative) Urine Bilirubin Negative (Negative) Urine Urobilinogen 0.2 (0.2-1.0) Ur Leukocyte Esterase Negative (Negative) Urine RBC 0-5 (0-5) /hpf Urine WBC 0-5 (0-5) /hpf Ur Epithelial Cells 0-5 (0-5) /hpf Amorphous Sediment Few H (NOT SEEN) /hpf Urine Bacteria Not seen (FEW) /hpf Urine Mucus Not seen (FEW) /hpf C.difficile 027-NAP1-B1 C. difficile Tox (PCR) MRSA (PCR) Negative 01/11/17 01/12/17 01/12/17 Range/Units 23:47 05:35 05:35 WBC 12.38 H (4.23-9.07) K/mm3 RBC 3.74 L (4.63-6.08) M/mm3 Hgb 12.0 L (13.7-17.5) gm/L Hct 36.3 L (40.1-51.0) % MCV 97.1 H (79.0-92.2) fl MCH 32.1 (25.7-32.2) pg MCHC 33.1 (32.2-35.5) g/dl RDW Std Deviation 43.7 (35.1-43.9) fL Plt Count 200 (163-337) K/mm3 MPV 11.1 (9.4-12.3) fl Neut % (Auto) 69.1 H (34.0-67.9) % Lymph % (Auto) 19.3 L (21.8-53.1) % [place] % (Auto) 10.8 (5.3-12.2) % Eos % (Auto) 0.4 L (0.8-7.0) Baso % (Auto) 0.2 (0.1-1.2) % Neut # (Auto) 8.54 H (1.78-5.38) K/mm3 Lymph # (Auto) 2.39 (1.32-3.57) K/mm3 [place] # (Auto) 1.34 H (0.30-0.82) K/mm3 Eos # (Auto) 0.05 (0.04-0.54) K/mm3 Baso # (Auto) 0.03 (0.01-0.08) K/mm3 Sodium 145 (136-145) mEq/L Potassium 3.3 L (3.5-5.1) mEq/L Chloride 107 (98-107) mEq/L Carbon Dioxide 25 (21-32) mEq/L Anion Gap 16.3 H (5-15) BUN 74 H (7-18) mg/dL Creatinine 2.9 H (0.7-1.3) mg/dL Est Cr Clr Drug Dosing 18.18 mL/min Estimated GFR (MDRD) 21 (>60) mL/min BUN/Creatinine Ratio 25.5 H (14-18) Glucose 111 (83-115) mg/dL POC Glucose 118 H (83-110) mg/dL Calcium 9.0 (8.5-10.1) mg/dL Magnesium 1.9 (1.8-2.4) mg/dl C-Reactive Protein 0.9 (<1.0) mg/dL Urine Color (Yellow) Urine Appearance (Clear) Urine pH (5.0-8.0) Ur Specific [place] (1.005-1.030) Urine Protein (Negative) Urine Glucose (UA) (Negative) Urine Ketones (Negative) Urine Occult Blood (Negative) Urine Nitrite (Negative) Urine Bilirubin (Negative) Urine Urobilinogen (0.2-1.0) Ur Leukocyte Esterase (Negative) Urine RBC (0-5) /hpf Urine WBC (0-5) /hpf Ur Epithelial Cells (0-5) /hpf Amorphous Sediment (NOT SEEN) /hpf Urine Bacteria (FEW) /hpf Urine Mucus (FEW) /hpf C.difficile 027-NAP1-B1 C. difficile Tox (PCR) MRSA (PCR) 01/12/17 01/12/17 01/12/17 Range/Units 06:45 08:28 11:23 WBC (4.23-9.07) K/mm3 RBC (4.63-6.08) M/mm3 Hgb (13.7-17.5) gm/L Hct (40.1-51.0) % MCV (79.0-92.2) fl MCH (25.7-32.2) pg MCHC (32.2-35.5) g/dl RDW Std Deviation (35.1-43.9) fL Plt Count (163-337) K/mm3 MPV (9.4-12.3) fl Neut % (Auto) (34.0-67.9) % Lymph % (Auto) (21.8-53.1) % [place] % (Auto) (5.3-12.2) % Eos % (Auto) (0.8-7.0) Baso % (Auto) (0.1-1.2) % Neut # (Auto) (1.78-5.38) K/mm3 Lymph # (Auto) (1.32-3.57) K/mm3 [place] # (Auto) (0.30-0.82) K/mm3 Eos # (Auto) (0.04-0.54) K/mm3 Baso # (Auto) (0.01-0.08) K/mm3 Sodium (136-145) mEq/L Potassium (3.5-5.1) mEq/L Chloride (98-107) mEq/L Carbon Dioxide (21-32) mEq/L Anion Gap (5-15) BUN (7-18) mg/dL Creatinine (0.7-1.3) mg/dL Est Cr Clr Drug Dosing mL/min Estimated GFR (MDRD) (>60) mL/min BUN/Creatinine Ratio (14-18) Glucose (83-115) mg/dL POC Glucose 107 144 H (83-110) mg/dL Calcium (8.5-10.1) mg/dL Magnesium (1.8-2.4) mg/dl C-Reactive Protein (<1.0) mg/dL Urine Color (Yellow) Urine Appearance (Clear) Urine pH (5.0-8.0) Ur Specific [place] (1.005-1.030) Urine Protein (Negative) Urine Glucose (UA) (Negative) Urine Ketones (Negative) Urine Occult Blood (Negative) Urine Nitrite (Negative) Urine Bilirubin (Negative) Urine Urobilinogen (0.2-1.0) Ur Leukocyte Esterase (Negative) Urine RBC (0-5) /hpf Urine WBC (0-5) /hpf Ur Epithelial Cells (0-5) /hpf Amorphous Sediment (NOT SEEN) /hpf Urine Bacteria (FEW) /hpf Urine Mucus (FEW) /hpf C.difficile 027-NAP1-B1 Presumptive negative C. difficile Tox (PCR) Negative MRSA (PCR) Med Orders - Current: Current Medications Citalopram Hydrobromide (Celexa) 30 mg PO BEDTIME [facility] [place] Last Admin: 01/11/17 21:49 Dose: 30 mg Dextrose/Water (Dextrose 50% In Water) 50 ml IVPUSH ASDIRECTED PRN PRN Reason: Hypoglycemia Diltiazem HCl (Dilacor Xr) 240 mg PO DAILY@0630 [facility] [place] Last Admin: 01/12/17 06:47 Dose: 240 mg Donepezil HCl (Aricept) 10 mg PO BEDTIME [facility] [place] Last Admin: 01/11/17 21:50 Dose: 10 mg Enoxaparin Sodium (Lovenox) 30 mg SUBCUT DAILY [facility] [place] Last Admin: 01/12/17 08:49 Dose: 30 mg Finasteride (Proscar) 5 mg PO BEDTIME [facility] [place] Last Admin: 01/11/17 21:48 Dose: 5 mg Sodium Chloride (Normal Saline) 1,000 mls @ 100 mls/hr IV ASDIRECTED [facility] [place] Last Admin: 01/12/17 12:45 Dose: 100 mls/hr Insulin Aspart (Novolog) 0 unit SUBCUT QIDACANDBED [facility] [place] PRN Reason: Protocol Last Admin: 01/12/17 11:48 Dose: Not Given Lorazepam (Ativan) 1 mg PO BID [facility] [place] Last Admin: 01/12/17 08:47 Dose: 1 mg Memantine (Namenda) 10 mg PO BID [facility] [place] Last Admin: 01/12/17 08:49 Dose: 10 mg Potassium Chloride (Potassium Chloride) 40 meq PO BID [facility] [place] Stop: 01/13/17 09:01 Last Admin: 01/12/17 11:50 Dose: 40 meq Saccharomyces Boulardii (Florastor) 250 mg PO BID [facility] [place] Last Admin: 01/12/17 11:48 Dose: 250 mg Simvastatin (Zocor) 10 mg PO BEDTIME [facility] [place] Last Admin: 01/11/17 21:49 Dose: 10 mg Tamsulosin HCl (Flomax) 0.4 mg PO DAILY [facility] [place] Last Admin: 01/12/17 08:47 Dose: 0.4 mg Tramadol HCl (Ultram) 0 mg PO Q12H PRN PRN Reason: Pain Last Admin: 01/12/17 08:48 Dose: 50 mg Discontinued Medications Diltiazem HCl (Dilacor Xr) 240 mg PO DAILY [facility] [place] Donepezil HCl (Aricept) 10 mg PO DAILY [facility] [place] Fentanyl (Sublimaze) 50 mcg IVPUSH ONETIME ONE Stop: 01/11/17 11:23 Last Admin: 01/11/17 11:35 Dose: 50 mcg Sodium Chloride (Normal Saline) 1,000 mls @ 150 mls/hr IV ASDIRECTED [facility] [place] Last Admin: 01/12/17 04:43 Dose: 150 mls/hr Ceftriaxone Sodium 2 gm/ (Sodium Chloride) 100 mls @ 200 mls/hr IV Q24H [facility] [place] Last Admin: 01/11/17 17:38 Dose: 200 mls/hr Lidocaine HCl (Xylocaine 2% Jelly) 10 ml MUCMEM ONETIME ONE Stop: 01/11/17 13:58 Last Admin: 01/11/17 14:30 Dose: Not Given Non-Formulary Medication (Medroxyprogesterone Acetate) 150 mg INJECT ASDIRECTED [facility] [place] Simvastatin (Zocor) 10 mg PO DAILY [facility] [place] - Exam Quality Assessment: Urine Catheter, DVT Prophylaxis General: Alert, Oriented, No Acute Distress HEENT: Pupils Equal, Pupils Reactive, EOMI Neck: Supple, Trachea Midline Lungs: Normal Respiratory Effort Cardiovascular: Regular Rate, Regular Rhythm GI/Abdominal Exam: Normal Bowel Sounds, Soft, Non-Tender, No Distention (Male) Exam: Deferred Back Exam: Normal Inspection Extremities: Normal Inspection Skin: Warm Neurological: No New Focal Deficit Psy/Mental Status: Alert - Problem List & Annotations (1) Chronic renal insufficiency, stage IV (severe) SNOMED Code(s): 57265254 Code(s): N18.4 - CHRONIC KIDNEY DISEASE, STAGE 4 (SEVERE) Status: Acute Current Visit: Yes (2) Congestive heart failure SNOMED Code(s): 03541496 Code(s): I50.9 - HEART FAILURE, UNSPECIFIED Status: Acute Current Visit: Yes Qualifiers: Congestive heart failure type: diastolic Congestive heart failure chronicity: chronic Qualified Code(s): I50.32 - Chronic diastolic (congestive ) heart failure (3) Dementia SNOMED Code(s): 97162193 Code(s): F03.90 - UNSPECIFIED DEMENTIA WITHOUT BEHAVIORAL DISTURBANCE Status: Acute Current Visit: Yes Qualifiers: Dementia type: Alzheimer's disease Alzheimer's disease onset: late-onset Dementia behavioral disturbance: without behavioral disturbance Qualified Code (s): G30.1 - Alzheimer's disease with late onset; F02.80 - Dementia in other diseases classified elsewhere without behavioral disturbance (4) Fall as cause of accidental injury at home as place of occurrence SNOMED Code(s): 89951491 Code(s): W19.XXXA - UNSPECIFIED FALL, INITIAL ENCOUNTER; Y92.009 - UNSP PLACE IN UNSP NON-INSTITUT (PRIVATE) RESIDENCE PLACE Status: Acute Current Visit: Yes Qualifiers: Encounter type: initial encounter Qualified Code(s): W19.XXXA - Unspecified fall, initial encounter; Y92.009 - Unspecified place in unspecified non-institutional (private) residence as the place of occurrence of the external cause (5) Obstructive uropathy SNOMED Code(s): 9179115 Code(s): N13.9 - OBSTRUCTIVE AND REFLUX UROPATHY, UNSPECIFIED Status: Acute Current Visit: Yes - Problem List Review Problem List Initiated/Reviewed/Updated: Yes - My Orders Last 24 Hours: My Active Orders 01/11/17 15:21 Bedrest Bathroom Privileges [RC] ASDIRECTED Vital Signs [RC] 03,,15,01/11/17 15:22 Code Status [Resuscitation Status] Routine 01/11/17 15:28 Antiembolic Devices [RC] DAILY NAVYA Hose [Antiembolic Hose] [OM.PC] Routine 01/11/17 15:30 Blood Glucose Check, Bedside [RC] 17,23,05,11 Dextrose 50% in Water 50 ml IVPUSH ASDIRECTED PRN Insulin Aspart [NovoLOG] See Protocol SUBCUT QIDACANDBED 01/11/17 21:00 Citalopram [Celexa] 30 mg PO BEDTIME Donepezil [Aricept] 10 mg PO BEDTIME Finasteride [Proscar] 5 mg PO BEDTIME LORazepam [Ativan] 1 mg PO BID Memantine [Namenda] 10 mg PO BID Simvastatin [Zocor] 10 mg PO BEDTIME 01/12/17 06:30 Diltiazem [Dilacor XR] 240 mg PO DAILY@0630 01/12/17 09:00 Enoxaparin [Lovenox] 30 mg SUBCUT DAILY Tamsulosin [Flomax] 0.4 mg PO DAILY 01/12/17 12:00 Potassium Chloride 40 meq PO BID 01/12/17 Breakfast Renal Non-Dialysis Diet [DIET] 01/13/17 05:00 BMP [BASIC METABOLIC PANEL,BMP] [CHEM] DAILY CBC WITH AUTO DIFF [HEME] DAILY CRP [C-REACTIVE PROTEIN] [CHEM] DAILY MAGNESIUM [CHEM] DAILY 01/14/17 05:00 BMP [BASIC METABOLIC PANEL,BMP] [CHEM] DAILY CBC WITH AUTO DIFF [HEME] DAILY CRP [C-REACTIVE PROTEIN] [CHEM] DAILY MAGNESIUM [CHEM] DAILY 01/15/17 05:00 BMP [BASIC METABOLIC PANEL,BMP] [CHEM] DAILY CBC WITH AUTO DIFF [HEME] DAILY CRP [C-REACTIVE PROTEIN] [CHEM] DAILY MAGNESIUM [CHEM] DAILY - Plan Plan:: Impression: Acute on chronic renal failure, stage IV AUTI--resolved; stopped IV ATB. S/P fall without injury AMS with baseline Alzheimer dementia; less interactive recently. Leg discomfort Chronic CAD S/P CABG HLD HTN BPH Diabetes Mellitus Anxiety GERD Plan: Check Art duplex or SCHUYLER IVF, continue Diurese as needed Hold nephrotoxins IV ATBs Home meds Daily Labs DVT/GI prophylaxis CM/PT/OT
[2017-01-12] MEDS: Citalopram 20 MG Tab PO SCH (20:45)
[2017-01-12] MEDS: Donepezil 10 MG Tab PO SCH (20:46)
[2017-01-12] MEDS: Simvastatin 10 MG Tab PO SCH (20:46)
[2017-01-12] MEDS: Finasteride 5 MG Tab PO SCH (20:46)
[2017-01-13] MEDS: traMADol 50 MG Tab PO PRN (03:04)
[2017-01-13] MEDS: Diltiazem 240 MG Cap.ER PO SCH (05:59)
[2017-01-13] MEDS ORDERED: Magnesium Oxide 400 MG Tab PO ONE (09:05)
[2017-01-13] MEDS ORDERED: Acetaminophen 325 MG Tab PO PRN (09:07)
[2017-01-13] MEDS: Insulin Aspart 100 Units/ML 3 ML Pen SUBCUT SCH ×4 (09:43→21:43)
[2017-01-13] MEDS: Potassium Chloride 10% 20 MEQ/15 ML Soln 30 ML UD Cup PO SCH (09:44)
[2017-01-13] MEDS: Saccharomyces Boulardii (Probiotic) 250 MG Cap PO SCH ×2 (09:44→20:11)
[2017-01-13] MEDS: Tamsulosin 0.4 MG Cap.ER PO SCH (09:45)
[2017-01-13] MEDS: LORazepam 1 MG Tab PO SCH ×2 (09:46→20:10)
[2017-01-13] MEDS: Memantine 10 MG Tab PO SCH ×2 (09:47→20:10)
[2017-01-13] MEDS: Enoxaparin 30 MG/0.3 ML Syringe SUBCUT SCH (09:48)
[2017-01-13] MEDS: Sodium Chloride 0.9% 1,000 ML IV SCH ×2 (12:20→22:45)
--- NOTE | 2017-01-13 16:11 | PCM.PN ---
<Rick Kelsey - Last Filed: 01/13/17 16:24> - General Info Date of Service: 01/13/17 Admission Dx/Problem (Free Text): Admission Diagnosis/Problem Admission Diagnosis/Problem Renal insufficiency Subjective Update: Patient lying in bed complaining of right leg discomfort. He is confused but answers questions. Functional Status: Reports: Tolerating Diet, Urinating - Review of Systems General: Reports: No Symptoms HEENT: Reports: No Symptoms Pulmonary: Reports: No Symptoms Cardiovascular: Reports: No Symptoms Gastrointestinal: Reports: No Symptoms Genitourinary: Reports: No Symptoms Musculoskeletal: Reports: Other (Right leg and hip pain. No bruising, skin breakdown, deformity, or redness noted. ) Skin: Reports: No Symptoms Neurological: Reports: Confusion Psychiatric: Reports: Confusion - Patient Data Vitals - Most Recent: Last Vital Signs Temp 99.7 F 01/13/17 14:54 Pulse 81 01/13/17 14:54 Resp 20 01/13/17 14:54 BP 173/70 H 01/13/17 14:54 Pulse Ox 93 L 01/13/17 14:54 Weight - Most Recent: 105.324 kg I&O - Last 24 Hours: Intake & Output 01/13/17 01/13/17 01/13/17 06:59 14:59 22:59 Intake Total 1450 120 700 Output Total 1800 Balance -350 120 700 Lab Results Last 24 Hours: Laboratory Results - last 24 hr 01/12/17 01/12/17 01/13/17 Range/Units 17:13 20:55 05:50 WBC 11.50 H (4.23-9.07) K/mm3 RBC 3.47 L (4.63-6.08) M/mm3 Hgb 11.2 L (13.7-17.5) gm/L Hct 34.0 L (40.1-51.0) % MCV 98.0 H (79.0-92.2) fl MCH 32.3 H (25.7-32.2) pg MCHC 32.9 (32.2-35.5) g/dl RDW Std Deviation 43.9 (35.1-43.9) fL Plt Count 200 (163-337) K/mm3 MPV 10.7 (9.4-12.3) fl Neut % (Auto) 69.7 H (34.0-67.9) % Lymph % (Auto) 15.1 L (21.8-53.1) % [place] % (Auto) 14.5 H (5.3-12.2) % Eos % (Auto) 0.2 L (0.8-7.0) Baso % (Auto) 0.2 (0.1-1.2) % Neut # (Auto) 8.02 H (1.78-5.38) K/mm3 Lymph # (Auto) 1.74 (1.32-3.57) K/mm3 [place] # (Auto) 1.67 H (0.30-0.82) K/mm3 Eos # (Auto) 0.02 L (0.04-0.54) K/mm3 Baso # (Auto) 0.02 (0.01-0.08) K/mm3 Manual Slide Review Abnormal smear Sodium (136-145) mEq/L Potassium (3.5-5.1) mEq/L Chloride (98-107) mEq/L Carbon Dioxide (21-32) mEq/L Anion Gap (5-15) BUN (7-18) mg/dL Creatinine (0.7-1.3) mg/dL Est Cr Clr Drug Dosing mL/min Estimated GFR (MDRD) (>60) mL/min BUN/Creatinine Ratio (14-18) Glucose (83-115) mg/dL POC Glucose 127 H 121 H (83-110) mg/dL Calcium (8.5-10.1) mg/dL Magnesium (1.8-2.4) mg/dl C-Reactive Protein (<1.0) mg/dL 01/13/17 01/13/17 01/13/17 Range/Units 05:50 05:57 11:33 WBC (4.23-9.07) K/mm3 RBC (4.63-6.08) M/mm3 Hgb (13.7-17.5) gm/L Hct (40.1-51.0) % MCV (79.0-92.2) fl MCH (25.7-32.2) pg MCHC (32.2-35.5) g/dl RDW Std Deviation (35.1-43.9) fL Plt Count (163-337) K/mm3 MPV (9.4-12.3) fl Neut % (Auto) (34.0-67.9) % Lymph % (Auto) (21.8-53.1) % [place] % (Auto) (5.3-12.2) % Eos % (Auto) (0.8-7.0) Baso % (Auto) (0.1-1.2) % Neut # (Auto) (1.78-5.38) K/mm3 Lymph # (Auto) (1.32-3.57) K/mm3 [place] # (Auto) (0.30-0.82) K/mm3 Eos # (Auto) (0.04-0.54) K/mm3 Baso # (Auto) (0.01-0.08) K/mm3 Manual Slide Review Sodium 143 (136-145) mEq/L Potassium 3.5 (3.5-5.1) mEq/L Chloride 107 (98-107) mEq/L Carbon Dioxide 25 (21-32) mEq/L Anion Gap 14.5 (5-15) BUN 45 H (7-18) mg/dL Creatinine 1.8 H (0.7-1.3) mg/dL Est Cr Clr Drug Dosing 29.29 mL/min Estimated GFR (MDRD) 36 (>60) mL/min BUN/Creatinine Ratio 25.0 H (14-18) Glucose 146 H (83-115) mg/dL POC Glucose 141 H 203 H (83-110) mg/dL Calcium 8.8 (8.5-10.1) mg/dL Magnesium 1.7 L (1.8-2.4) mg/dl C-Reactive Protein 6.0 H* (<1.0) mg/dL Jose Results Last 24 Hours: Microbiology 01/12/17 08:26 Stool Culture - Preliminary Stool / Feces - Final NEGATIVE FOR SHIGA TOXIN 1 - Final NEGATIVE FOR SHIGA TOXIN 2 Med Orders - Current: Current Medications Acetaminophen (Tylenol) 650 mg PO Q6H PRN PRN Reason: Pain Last Admin: 01/13/17 09:45 Dose: 650 mg Citalopram Hydrobromide (Celexa) 30 mg PO BEDTIME [facility] Last Admin: 01/12/17 20:45 Dose: 30 mg Dextrose/Water (Dextrose 50% In Water) 50 ml IVPUSH ASDIRECTED PRN PRN Reason: Hypoglycemia Diltiazem HCl (Dilacor Xr) 240 mg PO DAILY@0630 [facility] Last Admin: 01/13/17 05:59 Dose: 240 mg Donepezil HCl (Aricept) 10 mg PO BEDTIME [facility] Last Admin: 01/12/17 20:46 Dose: 10 mg Enoxaparin Sodium (Lovenox) 30 mg SUBCUT DAILY [facility] Last Admin: 01/13/17 09:48 Dose: 30 mg Finasteride (Proscar) 5 mg PO BEDTIME [facility] Last Admin: 01/12/17 20:46 Dose: 5 mg Sodium Chloride (Normal Saline) 1,000 mls @ 100 mls/hr IV ASDIRECTED [facility] Last Admin: 01/13/17 12:20 Dose: 100 mls/hr Insulin Aspart (Novolog) 0 unit SUBCUT QIDACANDBED [facility] PRN Reason: Protocol Last Admin: 01/13/17 11:54 Dose: 2 units Lorazepam (Ativan) 1 mg PO BID [facility] Last Admin: 01/13/17 09:46 Dose: 1 mg Memantine (Namenda) 10 mg PO BID [facility] Last Admin: 01/13/17 09:47 Dose: 10 mg Saccharomyces Boulardii (Florastor) 250 mg PO BID [facility] Last Admin: 01/13/17 09:44 Dose: 250 mg Simvastatin (Zocor) 10 mg PO BEDTIME [facility] Last Admin: 01/12/17 20:46 Dose: 10 mg Tamsulosin HCl (Flomax) 0.4 mg PO DAILY [facility] Last Admin: 01/13/17 09:45 Dose: 0.4 mg Tramadol HCl (Ultram) 0 mg PO Q12H PRN PRN Reason: Pain Last Admin: 01/13/17 03:04 Dose: 100 mg Discontinued Medications Diltiazem HCl (Dilacor Xr) 240 mg PO DAILY [facility] Donepezil HCl (Aricept) 10 mg PO DAILY [facility] Fentanyl (Sublimaze) 50 mcg IVPUSH ONETIME ONE Stop: 01/11/17 11:23 Last Admin: 01/11/17 11:35 Dose: 50 mcg Sodium Chloride (Normal Saline) 1,000 mls @ 150 mls/hr IV ASDIRECTED [facility] Last Admin: 01/12/17 04:43 Dose: 150 mls/hr Ceftriaxone Sodium 2 gm/ (Sodium Chloride) 100 mls @ 200 mls/hr IV Q24H [facility] Last Admin: 01/11/17 17:38 Dose: 200 mls/hr Lidocaine HCl (Xylocaine 2% Jelly) 10 ml MUCMEM ONETIME ONE Stop: 01/11/17 13:58 Last Admin: 01/11/17 14:30 Dose: Not Given Magnesium Oxide (Magnesium Oxide) 400 mg PO ONETIME ONE Stop: 01/13/17 09:06 Last Admin: 01/13/17 09:45 Dose: 400 mg Non-Formulary Medication (Medroxyprogesterone Acetate) 150 mg INJECT ASDIRECTED [facility] Potassium Chloride (Potassium Chloride) 40 meq PO BID [facility] Stop: 01/13/17 09:01 Last Admin: 01/13/17 09:44 Dose: 40 meq Simvastatin (Zocor) 10 mg PO DAILY [facility] - Exam Quality Assessment: Urine Catheter (to be D/C'd today ), DVT Prophylaxis. No: Skin Breakdown General: Alert, Cooperative, Other (confused ) HEENT: Pupils Equal, Pupils Reactive, Mucous Membr. Moist/[place] Neck: Supple, Trachea Midline, No JVD Lungs: Clear to Auscultation, Normal Respiratory Effort Cardiovascular: Regular Rate, Regular Rhythm GI/Abdominal Exam: Normal Bowel Sounds, Soft, Non-Tender, No Organomegaly, No Distention, No Mass (Male) Exam: Deferred Back Exam: Normal Inspection Extremities: Normal Inspection, Normal Range of Motion, No Pedal Edema, Normal Capillary Refill, Leg Pain (Right leg and hip) Skin: Warm, Dry, Intact Neurological: No New Focal Deficit, Other (Continues to be confused) Psy/Mental Status: Alert, Normal Affect, Normal Mood - Problem List & Annotations (1) Chronic renal insufficiency, stage IV (severe) SNOMED Code(s): 45997858 Code(s): N18.4 - CHRONIC KIDNEY DISEASE, STAGE 4 (SEVERE) Status: Resolved Priority: High Current Visit: Yes (2) Chronic renal insufficiency, stage III (moderate) SNOMED Code(s): 800176413 Code(s): N18.3 - CHRONIC KIDNEY DISEASE, STAGE 3 (MODERATE) Status: Acute Priority: High Current Visit: Yes (3) Congestive heart failure SNOMED Code(s): 88475071 Code(s): I50.9 - HEART FAILURE, UNSPECIFIED Status: Acute Priority: Medium Current Visit: Yes QualifierTitle: Congestive heart failure type: diastolic Congestive heart failure chronicity: chronic Qualified Code(s): I50.32 - Chronic diastolic (congestive) heart failure (4) Dementia SNOMED Code(s): 65528865 Code(s): F03.90 - UNSPECIFIED DEMENTIA WITHOUT BEHAVIORAL DISTURBANCE Status: Acute Priority: Medium Current Visit: Yes QualifierTitle: Dementia type: Alzheimer's disease Alzheimer's disease onset: late-onset Dementia behavioral disturbance: without behavioral disturbance Qualified Code(s): G30.1 - Alzheimer's disease with late onset; F02.80 - Dementia in other diseases classified elsewhere without behavioral disturbance (5) Obstructive uropathy SNOMED Code(s): 0228269 Code(s): N13.9 - OBSTRUCTIVE AND REFLUX UROPATHY, UNSPECIFIED Status: Acute Priority: High Current Visit: Yes (6) Right leg pain SNOMED Code(s): 904220623 Code(s): M79.604 - PAIN IN RIGHT LEG Status: Acute Priority: Low Current Visit: Yes - Problem List Review Problem List Initiated/Reviewed/Updated: Yes - My Orders Last 24 Hours: My Active Orders 01/13/17 09:07 Acetaminophen [Tylenol] 650 mg PO Q6H PRN - Plan Plan:: Impression: Acute on chronic renal failure, stage IV - Resolved eGFR now 36 (Chronic renal failure, stage III) AUTI--resolved; stopped IV ATB. S/P fall without injury AMS with baseline Alzheimer dementia; less interactive recently. Leg discomfort -Low magnesium, will replace -Pain meds as indicated Chronic CAD S/P CABG HLD HTN BPH Diabetes Mellitus Anxiety GERD Plan: Check Art duplex or SCHUYLER IVF, continue Diurese as needed Hold nephrotoxins IV ATBs - hold now Home meds Daily Labs DVT/GI prophylaxis CM/PT/OT <Marychuy Schwarz - Last Filed: 01/13/17 16:46> - Patient Data Vitals - Most Recent: Last Vital Signs Temp 37.6 C 01/13/17 14:54 Pulse 81 01/13/17 14:54 Resp 20 01/13/17 14:54 BP 173/70 H 01/13/17 14:54 Pulse Ox 93 L 01/13/17 14:54 I&O - Last 24 Hours: Intake & Output 01/13/17 01/13/17 01/13/17 06:59 14:59 22:59 Intake Total 1450 120 700 Output Total 1800 Balance -350 120 700 Lab Results Last 24 Hours: Laboratory Results - last 24 hr 01/12/17 01/12/17 01/13/17 Range/Units 17:13 20:55 05:50 WBC 11.50 H (4.23-9.07) K/mm3 RBC 3.47 L (4.63-6.08) M/mm3 Hgb 11.2 L (13.7-17.5) gm/L Hct 34.0 L (40.1-51.0) % MCV 98.0 H (79.0-92.2) fl MCH 32.3 H (25.7-32.2) pg MCHC 32.9 (32.2-35.5) g/dl RDW Std Deviation 43.9 (35.1-43.9) fL Plt Count 200 (163-337) K/mm3 MPV 10.7 (9.4-12.3) fl Neut % (Auto) 69.7 H (34.0-67.9) % Lymph % (Auto) 15.1 L (21.8-53.1) % [place] % (Auto) 14.5 H (5.3-12.2) % Eos % (Auto) 0.2 L (0.8-7.0) Baso % (Auto) 0.2 (0.1-1.2) % Neut # (Auto) 8.02 H (1.78-5.38) K/mm3 Lymph # (Auto) 1.74 (1.32-3.57) K/mm3 [place] # (Auto) 1.67 H (0.30-0.82) K/mm3 Eos # (Auto) 0.02 L (0.04-0.54) K/mm3 Baso # (Auto) 0.02 (0.01-0.08) K/mm3 Manual Slide Review Abnormal smear Sodium (136-145) mEq/L Potassium (3.5-5.1) mEq/L Chloride (98-107) mEq/L Carbon Dioxide (21-32) mEq/L Anion Gap (5-15) BUN (7-18) mg/dL Creatinine (0.7-1.3) mg/dL Est Cr Clr Drug Dosing mL/min Estimated GFR (MDRD) (>60) mL/min BUN/Creatinine Ratio (14-18) Glucose (83-115) mg/dL POC Glucose 127 H 121 H (83-110) mg/dL Calcium (8.5-10.1) mg/dL Magnesium (1.8-2.4) mg/dl C-Reactive Protein (<1.0) mg/dL 01/13/17 01/13/17 01/13/17 Range/Units 05:50 05:57 11:33 WBC (4.23-9.07) K/mm3 RBC (4.63-6.08) M/mm3 Hgb (13.7-17.5) gm/L Hct (40.1-51.0) % MCV (79.0-92.2) fl MCH (25.7-32.2) pg MCHC (32.2-35.5) g/dl RDW Std Deviation (35.1-43.9) fL Plt Count (163-337) K/mm3 MPV (9.4-12.3) fl Neut % (Auto) (34.0-67.9) % Lymph % (Auto) (21.8-53.1) % [place] % (Auto) (5.3-12.2) % Eos % (Auto) (0.8-7.0) Baso % (Auto) (0.1-1.2) % Neut # (Auto) (1.78-5.38) K/mm3 Lymph # (Auto) (1.32-3.57) K/mm3 [place] # (Auto) (0.30-0.82) K/mm3 Eos # (Auto) (0.04-0.54) K/mm3 Baso # (Auto) (0.01-0.08) K/mm3 Manual Slide Review Sodium 143 (136-145) mEq/L Potassium 3.5 (3.5-5.1) mEq/L Chloride 107 (98-107) mEq/L Carbon Dioxide 25 (21-32) mEq/L Anion Gap 14.5 (5-15) BUN 45 H (7-18) mg/dL Creatinine 1.8 H (0.7-1.3) mg/dL Est Cr Clr Drug Dosing 29.29 mL/min Estimated GFR (MDRD) 36 (>60) mL/min BUN/Creatinine Ratio 25.0 H (14-18) Glucose 146 H (83-115) mg/dL POC Glucose 141 H 203 H (83-110) mg/dL Calcium 8.8 (8.5-10.1) mg/dL Magnesium 1.7 L (1.8-2.4) mg/dl C-Reactive Protein 6.0 H* (<1.0) mg/dL Jose Results Last 24 Hours: Microbiology 01/12/17 08:26 Stool Culture - Preliminary Stool / Feces - Final NEGATIVE FOR SHIGA TOXIN 1 - Final NEGATIVE FOR SHIGA TOXIN 2 Med Orders - Current: Current Medications Acetaminophen (Tylenol) 650 mg PO Q6H PRN PRN Reason: Pain Last Admin: 01/13/17 09:45 Dose: 650 mg Citalopram Hydrobromide (Celexa) 30 mg PO BEDTIME [facility] Last Admin: 01/12/17 20:45 Dose: 30 mg Dextrose/Water (Dextrose 50% In Water) 50 ml IVPUSH ASDIRECTED PRN PRN Reason: Hypoglycemia Diltiazem HCl (Dilacor Xr) 240 mg PO DAILY@0630 [facility] Last Admin: 01/13/17 05:59 Dose: 240 mg Donepezil HCl (Aricept) 10 mg PO BEDTIME [facility] Last Admin: 01/12/17 20:46 Dose: 10 mg Enoxaparin Sodium (Lovenox) 30 mg SUBCUT DAILY [facility] Last Admin: 01/13/17 09:48 Dose: 30 mg Finasteride (Proscar) 5 mg PO BEDTIME [facility] Last Admin: 01/12/17 20:46 Dose: 5 mg Sodium Chloride (Normal Saline) 1,000 mls @ 100 mls/hr IV ASDIRECTED [facility] Last Admin: 01/13/17 12:20 Dose: 100 mls/hr Insulin Aspart (Novolog) 0 unit SUBCUT QIDACANDBED [facility] PRN Reason: Protocol Last Admin: 01/13/17 11:54 Dose: 2 units Lorazepam (Ativan) 1 mg PO BID [facility] Last Admin: 01/13/17 09:46 Dose: 1 mg Memantine (Namenda) 10 mg PO BID [facility] Last Admin: 01/13/17 09:47 Dose: 10 mg Saccharomyces Boulardii (Florastor) 250 mg PO BID [facility] Last Admin: 01/13/17 09:44 Dose: 250 mg Simvastatin (Zocor) 10 mg PO BEDTIME [facility] Last Admin: 01/12/17 20:46 Dose: 10 mg Tamsulosin HCl (Flomax) 0.4 mg PO DAILY [facility] Last Admin: 01/13/17 09:45 Dose: 0.4 mg Tramadol HCl (Ultram) 0 mg PO Q12H PRN PRN Reason: Pain Last Admin: 01/13/17 03:04 Dose: 100 mg Discontinued Medications Diltiazem HCl (Dilacor Xr) 240 mg PO DAILY [facility] Donepezil HCl (Aricept) 10 mg PO DAILY [facility] Fentanyl (Sublimaze) 50 mcg IVPUSH ONETIME ONE Stop: 01/11/17 11:23 Last Admin: 01/11/17 11:35 Dose: 50 mcg Sodium Chloride (Normal Saline) 1,000 mls @ 150 mls/hr IV ASDIRECTED [facility] Last Admin: 01/12/17 04:43 Dose: 150 mls/hr Ceftriaxone Sodium 2 gm/ (Sodium Chloride) 100 mls @ 200 mls/hr IV Q24H [facility] Last Admin: 01/11/17 17:38 Dose: 200 mls/hr Lidocaine HCl (Xylocaine 2% Jelly) 10 ml MUCMEM ONETIME ONE Stop: 01/11/17 13:58 Last Admin: 01/11/17 14:30 Dose: Not Given Magnesium Oxide (Magnesium Oxide) 400 mg PO ONETIME ONE Stop: 01/13/17 09:06 Last Admin: 01/13/17 09:45 Dose: 400 mg Non-Formulary Medication (Medroxyprogesterone Acetate) 150 mg INJECT ASDIRECTED [facility] Potassium Chloride (Potassium Chloride) 40 meq PO BID [facility] Stop: 01/13/17 09:01 Last Admin: 01/13/17 09:44 Dose: 40 meq Simvastatin (Zocor) 10 mg PO DAILY [facility] - Problem List & Annotations (1) Chronic renal insufficiency, stage IV (severe) SNOMED Code(s): 27740743 Code(s): N18.4 - CHRONIC KIDNEY DISEASE, STAGE 4 (SEVERE) Status: Resolved Priority: High Current Visit: Yes (2) Congestive heart failure SNOMED Code(s): 02883724 Code(s): I50.9 - HEART FAILURE, UNSPECIFIED Status: Acute Priority: Medium Current Visit: Yes Qualifiers: Congestive heart failure type: diastolic Congestive heart failure chronicity: chronic Qualified Code(s): I50.32 - Chronic diastolic (congestive ) heart failure (3) Dementia SNOMED Code(s): 63311287 Code(s): F03.90 - UNSPECIFIED DEMENTIA WITHOUT BEHAVIORAL DISTURBANCE Status: Acute Priority: Medium Current Visit: Yes Qualifiers: Dementia type: Alzheimer's disease Alzheimer's disease onset: late-onset Dementia behavioral disturbance: without behavioral disturbance Qualified Code (s): G30.1 - Alzheimer's disease with late onset; F02.80 - Dementia in other diseases classified elsewhere without behavioral disturbance (4) Fall as cause of accidental injury at home as place of occurrence SNOMED Code(s): 61232164 Code(s): W19.XXXA - UNSPECIFIED FALL, INITIAL ENCOUNTER; Y92.009 - UNSP PLACE IN UNSP NON-INSTITUT (PRIVATE) RESIDENCE PLACE Status: Acute Current Visit: Yes Qualifiers: Encounter type: initial encounter Qualified Code(s): W19.XXXA - Unspecified fall, initial encounter; Y92.009 - Unspecified place in unspecified non-institutional (private) residence as the place of occurrence of the external cause (5) Obstructive uropathy SNOMED Code(s): 4053316 Code(s): N13.9 - OBSTRUCTIVE AND REFLUX UROPATHY, UNSPECIFIED Status: Acute Priority: High Current Visit: Yes - My Orders Last 24 Hours: My Active Orders 01/14/17 05:00 BMP [BASIC METABOLIC PANEL,BMP] [CHEM] DAILY CBC WITH AUTO DIFF [HEME] DAILY CRP [C-REACTIVE PROTEIN] [CHEM] DAILY MAGNESIUM [CHEM] DAILY 01/15/17 05:00 BMP [BASIC METABOLIC PANEL,BMP] [CHEM] DAILY CBC WITH AUTO DIFF [HEME] DAILY CRP [C-REACTIVE PROTEIN] [CHEM] DAILY MAGNESIUM [CHEM] DAILY - Plan Plan:: DC expected 01/14/17
[2017-01-13] MEDS: Citalopram 20 MG Tab PO SCH (20:10)
[2017-01-13] MEDS: Simvastatin 10 MG Tab PO SCH (20:10)
[2017-01-13] MEDS: Donepezil 10 MG Tab PO SCH (20:10)
[2017-01-13] MEDS: Finasteride 5 MG Tab PO SCH (20:10)
[2017-01-14] MEDS: Diltiazem 240 MG Cap.ER PO SCH (06:18)
[2017-01-14] MEDS: Insulin Aspart 100 Units/ML 3 ML Pen SUBCUT SCH ×2 (06:21→13:29)
[2017-01-14 08:50] VITALS: BP 141/60
[2017-01-14] MEDS: LORazepam 1 MG Tab PO SCH (09:08)
[2017-01-14] MEDS: Enoxaparin 30 MG/0.3 ML Syringe SUBCUT SCH (09:09)
[2017-01-14] MEDS: Tamsulosin 0.4 MG Cap.ER PO SCH (09:09)
[2017-01-14] MEDS: Saccharomyces Boulardii (Probiotic) 250 MG Cap PO SCH (09:09)
[2017-01-14] MEDS: Memantine 10 MG Tab PO SCH (09:10)
[2017-01-14] MEDS: Sodium Chloride 0.9% 1,000 ML IV SCH (09:19)
[2017-01-14] MEDS ORDERED: Magnesium Sulfate/Water 2 GM in Premix Bag 1 BAG IV ONE (10:15)
--- NOTE | 2017-01-19 12:52 | PCM.DCSUM1 ---
Discharge Summary - Hospital Course Free Text/Narrative:: 86 year old male [facility] resident presented after falling. 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 He has baseline Alzheimer dementia. Had been takin Amoxicillin for a UTI. Has one kidney and probable baseline CKD III , however currently laboratory studies support CKD IV in acute failure. He will be admitted to [facility] for ARF. Course of hospital stay was unremarkable. He was hydrated with IVF, renal status improved to baseline. He was treated for AUTI with IV abx. PT/OT worked with him. He is discharged back to SNF with recommendations to f/up with PCP within one week of discharge. - Discharge Data Discharge Date: 01/14/17 Discharge Disposition: DC/Tfer to SNF 03 Condition: Good - Discharge Diagnosis/Problem(s) (1) Fall as cause of accidental injury at home as place of occurrence SNOMED Code(s): 14514529 ICD Code: W19.XXXA - UNSPECIFIED FALL, INITIAL ENCOUNTER; Y92.009 - UNSP PLACE IN UNSP NON-INSTITUT (PRIVATE) RESIDENCE PLACE Status: Chronic Priority: High Qualifiers: Encounter type: initial encounter Qualified Code(s): W19.XXXA - Unspecified fall, initial encounter; Y92.009 - Unspecified place in unspecified non-institutional (private) residence as the place of occurrence of the external cause (2) Obstructive uropathy SNOMED Code(s): 4721543 ICD Code: N13.9 - OBSTRUCTIVE AND REFLUX UROPATHY, UNSPECIFIED Status: Chronic Priority: High (3) Dementia SNOMED Code(s): 28478423 ICD Code: F03.90 - UNSPECIFIED DEMENTIA WITHOUT BEHAVIORAL DISTURBANCE Status: Chronic Priority: Medium Qualifiers: Dementia type: Alzheimer's disease Alzheimer's disease onset: late-onset Dementia behavioral disturbance: without behavioral disturbance Qualified Code (s): G30.1 - Alzheimer's disease with late onset; F02.80 - Dementia in other diseases classified elsewhere without behavioral disturbance (4) Congestive heart failure SNOMED Code(s): 49616896 ICD Code: I50.9 - HEART FAILURE, UNSPECIFIED Status: Chronic Priority: Medium Qualifiers: Congestive heart failure type: diastolic Congestive heart failure chronicity: chronic Qualified Code(s): I50.32 - Chronic diastolic (congestive ) heart failure (5) Right leg pain SNOMED Code(s): 348279460 ICD Code: M79.604 - PAIN IN RIGHT LEG Status: Acute Priority: Low (6) Chronic renal insufficiency, stage IV (severe) SNOMED Code(s): 78545822 ICD Code: N18.4 - CHRONIC KIDNEY DISEASE, STAGE 4 (SEVERE) Status: Resolved Priority: High - Patient Summary/Data Operative Procedure(s) Performed: None Complications: None Consults: Consultations 01/12/17 10:10 PT Evaluation and Treatment [CONS] Routine Labs Pending at D/C: None Recommended Follow-up Testing/Procedures: F/up with PCP within one week of discharge Planned Operative Procedure(s) after DC: None Hospital Course: As above - Patient Instructions Diet: Usual Diet as Tolerated Activity: As Tolerated Showering/Bathing: May Shower Notify Provider of: Fever, Nausea and/or Vomiting - Discharge Plan Prescriptions/Med Rec: Saccharomyces Boulardii [Florastor] 250 mg PO BID #60 cap Home Medications: Home Meds Acetaminophen [Tylenol] 500 mg PO TID 01/11/17 [History] Amoxicillin 2,000 mg PO ASDIRECTED PRN 01/11/17 [History] Bumetanide [Bumex] 1 mg PO BID 01/11/17 [History] Citalopram [Celexa] 30 mg PO BEDTIME 01/11/17 [History] Diltiazem [Cardizem CD] 240 mg PO ACBREAKFAST 01/11/17 [History] Donepezil HCl [Aricept] 10 mg PO BEDTIME 01/11/17 [History] FA/Lycopene/Lut/MV,Ca,Iron,Min [Centrum] 1 tab PO DAILY 01/11/17 [History] Finasteride [Proscar] 5 mg PO BEDTIME 01/11/17 [History] Insulin Glarg,Human.Rec.Analog [LantUS Solostar] 10 units INJECT DAILY 01/11/17 [History] LORazepam [Ativan] 1 mg PO BID 01/11/17 [History] Lisinopril 20 mg PO BID 01/11/17 [History] Loperamide [Imodium] 2 mg PO ASDIRECTED PRN 01/11/17 [History] Memantine [Namenda] 10 mg PO BID 01/11/17 [History] Metolazone 2.5 mg PO MOWEFR 01/11/17 [History] [place]-3 Fatty Acids [[place]-3] 360 - 1,200 mg PO DAILY 01/11/17 [History] Pantoprazole Sodium [Protonix] 20 mg PO ACBREAKFAST 01/11/17 [History] Psyllium Seed (With Sugar) [Metamucil Fiber Wafer] 2 wafer PO TID 01/11/17 [ History] Refresh Eye Drops 2 - 3 drop EYEBOTH ASDIRECTED PRN 01/11/17 [History] Simvastatin [Zocor] 10 mg PO BEDTIME 01/11/17 [History] Tamsulosin HCl [Flomax] 0.4 mg PO DAILY 01/11/17 [History] Vit A,C & E/Lutein/Minerals [Healthy Eyes] 1 tab PO DAILY 01/11/17 [History] medroxyPROGESTERone Acetate [Depo-Provera] 150 mg INJECT ASDIRECTED 01/11/17 [ History] traMADol [Ultram] 50 mg PO Q12H PRN 01/11/17 [History] Saccharomyces Boulardii [Florastor] 250 mg PO BID #60 cap 01/14/17 [Rx] Patient Handouts: Fall Prevention in the Home, [id number], Benign Prostatic Hyperplasia, Chronic Kidney Disease, Dementia, [id number], Managing Your High Blood Pressure, Hypertension Forms: ED Department Discharge Referrals: Mane Barnhart MD [Primary Care Provider] - (1-2 weeks) - Discharge Summary/Plan Comment DC Time >30 min.: Yes (40 min) - General Info Date of Service: 01/14/17 Admission Dx/Problem (Free Text: Admission Diagnosis/Problem Admission Diagnosis/Problem Renal insufficiency Functional Status: Reports: Pain Controlled, Tolerating Diet, Ambulating - Review of Systems General: Reports: No Symptoms HEENT: Reports: No Symptoms Pulmonary: Reports: No Symptoms Cardiovascular: Reports: No Symptoms Gastrointestinal: Reports: No Symptoms. Denies: Diarrhea, Nausea, Vomiting Genitourinary: Reports: No Symptoms. Denies: Dysuria, Pain, Hematuria Musculoskeletal: Reports: No Symptoms Skin: Reports: No Symptoms - Patient Data Vitals - Most Recent: Last Vital Signs Temp 98.8 F 01/14/17 08:43 Pulse 82 01/14/17 08:43 Resp 20 01/14/17 08:43 BP 141/60 H 01/14/17 08:43 Pulse Ox 94 L 01/14/17 08:43 Weight - Most Recent: 234 lb 8 oz Med Orders - Current: Current Medications Discontinued Medications Acetaminophen (Tylenol) 650 mg PO Q6H PRN PRN Reason: Pain Last Admin: 01/13/17 09:45 Dose: 650 mg Citalopram Hydrobromide (Celexa) 30 mg PO BEDTIME [facility] Last Admin: 01/13/17 20:10 Dose: 30 mg Dextrose/Water (Dextrose 50% In Water) 50 ml IVPUSH ASDIRECTED PRN PRN Reason: Hypoglycemia Diltiazem HCl (Dilacor Xr) 240 mg PO DAILY [facility] Diltiazem HCl (Dilacor Xr) 240 mg PO DAILY@0630 [facility] Last Admin: 01/14/17 06:18 Dose: 240 mg Donepezil HCl (Aricept) 10 mg PO DAILY BRENDA Donepezil HCl (Aricept) 10 mg PO BEDTIME [facility] Last Admin: 01/13/17 20:10 Dose: 10 mg Enoxaparin Sodium (Lovenox) 30 mg SUBCUT DAILY [facility] Last Admin: 01/14/17 09:09 Dose: 30 mg Fentanyl (Sublimaze) 50 mcg IVPUSH ONETIME ONE Stop: 01/11/17 11:23 Last Admin: 01/11/17 11:35 Dose: 50 mcg Finasteride (Proscar) 5 mg PO BEDTIME [facility] Last Admin: 01/13/17 20:10 Dose: 5 mg Sodium Chloride (Normal Saline) 1,000 mls @ 150 mls/hr IV ASDIRECTED [facility] Last Admin: 01/12/17 04:43 Dose: 150 mls/hr Ceftriaxone Sodium 2 gm/ (Sodium Chloride) 100 mls @ 200 mls/hr IV Q24H [facility] Last Admin: 01/11/17 17:38 Dose: 200 mls/hr Sodium Chloride (Normal Saline) 1,000 mls @ 100 mls/hr IV ASDIRECTED [facility] Last Admin: 01/14/17 09:19 Dose: 100 mls/hr Magnesium Sulfate 2 gm/ Premix 50 mls @ 25 mls/hr IV ONETIME ONE Stop: 01/14/17 12:14 Last Admin: 01/14/17 10:21 Dose: 25 mls/hr Insulin Aspart (Novolog) 0 unit SUBCUT QIDACANDBED [facility] PRN Reason: Protocol Last Admin: 01/14/17 13:29 Dose: Not Given Lidocaine HCl (Xylocaine 2% Jelly) 10 ml MUCMEM ONETIME ONE Stop: 01/11/17 13:58 Last Admin: 01/11/17 14:30 Dose: Not Given Lorazepam (Ativan) 1 mg PO BID [facility] Last Admin: 01/14/17 09:08 Dose: 1 mg Magnesium Oxide (Magnesium Oxide) 400 mg PO ONETIME ONE Stop: 01/13/17 09:06 Last Admin: 01/13/17 09:45 Dose: 400 mg Memantine (Namenda) 10 mg PO BID [facility] Last Admin: 01/14/17 09:10 Dose: 10 mg Non-Formulary Medication (Medroxyprogesterone Acetate) 150 mg INJECT ASDIRECTED [facility] Potassium Chloride (Potassium Chloride) 40 meq PO BID [facility] Stop: 01/13/17 09:01 Last Admin: 01/13/17 09:44 Dose: 40 meq Saccharomyces Boulardii (Florastor) 250 mg PO BID [facility] Last Admin: 01/14/17 09:09 Dose: 250 mg Simvastatin (Zocor) 10 mg PO DAILY [facility] Simvastatin (Zocor) 10 mg PO BEDTIME [facility] Last Admin: 01/13/17 20:10 Dose: 10 mg Tamsulosin HCl (Flomax) 0.4 mg PO DAILY [facility] Last Admin: 01/14/17 09:09 Dose: 0.4 mg Tramadol HCl (Ultram) 0 mg PO Q12H PRN PRN Reason: Pain Last Admin: 01/13/17 03:04 Dose: 100 mg - Exam Quality Assessment: Reports: DVT Prophylaxis General: Reports: Alert, No Acute Distress HEENT: Reports: Pupils Equal, Mucous Membr. Moist/[place] Neck: Reports: Supple Lungs: Reports: Clear to Auscultation, Normal Respiratory Effort, Decreased Breath Sounds (bases) Cardiovascular: Reports: Regular Rate, Regular Rhythm GI/Abdominal Exam: Normal Bowel Sounds, Soft, Non-Tender (Male) Exam: Deferred Rectal (Males) Exam: Deferred Extremities: Normal Inspection Psy/Mental Status: Reports: Alert *Q Meaningful Use (DIS) - VTE *Q VTE Criteria *Q: - Stroke *Q Stroke Criteria *Q: - AMI *Q AMI Criteria *Q:
== END 2017-01-14 12:30 | DRG 683 ==
LOC: JD.ED 10:55 → SUPCPDRO 10:55 → JD.MS 14:31
PROVIDERS: ADMIT Internal Medicine Cardiovascular Disease; ATTEND Internal Medicine Cardiovascular Disease
DX: N17.9 Acute kidney failure, unspecified (principal); I25.810 Atherosclerosis of coronary artery bypass graft(s) without angina pectoris; I13.0 Hypertensive heart and chronic kidney disease with heart failure and stage 1 through stage 4 chronic kidney disease, or unspecified chronic kidney disease; I50.32 Chronic diastolic (congestive) heart failure; N39.0 Urinary tract infection, site not specified; E78.00 Pure hypercholesterolemia, unspecified; Q60.0 Renal agenesis, unilateral; N18.4 Chronic kidney disease, stage 4 (severe); N13.9 Obstructive and reflux uropathy, unspecified; E83.42 Hypomagnesemia; R41.0 Disorientation, unspecified; E78.5 Hyperlipidemia, unspecified; E11.9 Type 2 diabetes mellitus without complications; Z79.4 Long term (current) use of insulin; K21.9 Gastro-esophageal reflux disease without esophagitis; K59.09 Other constipation; W19.XXXA Unspecified fall, initial encounter; N40.0 Benign prostatic hyperplasia without lower urinary tract symptoms; R32 Unspecified urinary incontinence; M19.90 Unspecified osteoarthritis, unspecified site; G30.9 Alzheimer's disease, unspecified; F02.80 Dementia in other diseases classified elsewhere, unspecified severity, without behavioral disturbance, psychotic disturbance, mood disturbance, and anxiety; F32.9 Major depressive disorder, single episode, unspecified; E66.9 Obesity, unspecified; Z68.30 Body mass index [BMI] 30.0-30.9, adult; Z66 Do not resuscitate; Z79.899 Other long term (current) drug therapy
CPT/HCPCS: 36415; 51702; 51798; 70450; 71010; 72170; 73552; 74176; 80053; 83880; 84484; 85025; 85610; 85730; 86900; 86901; 93005; 96361; 96374; 99285; J3010; J7040; 80048; 81001; 82962; 83735; 86140; 87046; 87427; 87493; 87641; 97110-GP; 97162-GP; 97530-GP; A9270-GY; J0696; J1650; J1815-GY; J3475; J7030

== ENCOUNTER 2017-01-20 20:12 | Inpatient (IN) | payer MEDICARE, OTHER ==
[2017-01-20] MEDS ORDERED: Sodium Chloride 0.9% 10 ML Syringe FLUSH PRN (20:25)
[2017-01-20] MEDS ORDERED: HYDROmorphone 0.5 MG/0.5 ML Syringe IVPUSH ONE (20:33)
[2017-01-20] MEDS ORDERED: Ondansetron 4 MG/2 ML SDV IVPUSH ONE (20:33)
--- NOTE | 2017-01-20 21:01 | EDM.PDOC ---
ED HPI GENERAL MEDICAL PROBLEM - General Chief Complaint: Lower Extremity Injury/Pain Stated Complaint: Fall Time Seen by Provider: 01/20/17 20:15 Source of Information: Reports: Patient, Fpc Records, RN Notes Reviewed History Limitations: Reports: No Limitations - History of Present Illness INITIAL COMMENTS - FREE TEXT/NARRATIVE: 86 year old male presents to the ED via [facility] after an unwitnessed fall at the long-term. Nursing staff reprots that he was hypotensive in the 80s systolic after the fall. He was c/o headache and right hip pain after the fall. The patient has history of bilateral hip replacements. He fell about two weeks ago and complained of right hip pain at that time as well. He was subsequently admitted for ARF. No additional history is available. Right Hip Pain Score (Numeric/FACES): 7 - Related Data Allergies Allergy/AdvReac Type Severity Reaction Status Date / Time Dairy Products Allergy Intermediate Diarrhea Verified 01/20/17 20:22 Home Meds: Home Meds Acetaminophen 500 mg PO TID 01/20/17 [History] Bumetanide 1 mg PO BID 01/20/17 [History] Carboxymethylcellulose Sodium [Refresh Tears] 2 - 3 drop OP BID PRN 01/20/17 [ History] Citalopram [Celexa] 30 mg PO DAILY 01/20/17 [History] Diltiazem [Cardizem CD] 240 mg PO DAILY 01/20/17 [History] Donepezil HCl [Aricept] 10 mg PO DAILY 01/20/17 [History] FA/Lycopene/Lut/MV,Ca,Iron,Min [Centrum] 1 tab PO DAILY 01/20/17 [History] Finasteride [Proscar] 5 mg PO BEDTIME 01/20/17 [History] Insulin Glargine,Hum.Rec.Anlog [Lantus Solostar] 10 units SQ BEDTIME 01/20/17 [ History] LORazepam [Ativan] 0.5 mg PO BID 01/20/17 [History] Lisinopril 20 mg PO BID 01/20/17 [History] Loperamide [Imodium AD] 2 mg PO Q6H PRN 01/20/17 [History] Memantine HCl [Namenda] 10 mg PO BID 01/20/17 [History] Metolazone 2.5 mg PO ASDIRECTED 01/20/17 [History] [place]-3S/DHA/Epa/Fish Oil [Fish Oil [place]-3 Softgel] 1 cap PO DAILY 01/20/17 [ History] Pantoprazole Sodium [Protonix] 20 mg PO TIDAC 01/20/17 [History] Psyllium Seed (With Sugar) [Metamucil Fiber Wafer] 2 each PO TID 01/20/17 [ History] Saccharomyces Boulardii [Florastor] 250 mg PO BID 01/20/17 [History] Simvastatin [Zocor] 10 mg PO BEDTIME 01/20/17 [History] Tamsulosin [Flomax] 1 cap PO DAILY 01/20/17 [History] Vit A,C & E/Lutein/Minerals [Healthy Eyes] 1 cap PO DAILY 01/20/17 [History] medroxyPROGESTERone Acetate [Depo-Provera] 150 mg IM ASDIRECTED 01/20/17 [ History] traMADol [Ultram] 50 mg PO Q12H PRN 01/20/17 [History] Past Medical History HEENT History: Reports: Other (See Below) Other HEENT History: unspecified disorder of eye and adnexa Cardiovascular History: Reports: Bypass, CAD, High Cholesterol, Hypertension Gastrointestinal History: Reports: Chronic Constipation, GERD Genitourinary History: Reports: BPH, Urinary Incontinence, Other (See Below) Musculoskeletal History: Reports: Osteoarthritis, Other (See Below) Neurological History: Reports: Alzheimers Disease Psychiatric History: Reports: Alzheimers Disease, Anxiety, Dementia, Depression Other Psychiatric History: Dtr thinks he has dome depression Endocrine/Metabolic History: Reports: Diabetes, Type II, Obesity/BMI 30+ - Past Surgical History Cardiovascular Surgical History: Reports: Coronary Artery Bypass GI Surgical History: Reports: None Male Surgical History: Reports: None Neurological Surgical History: Reports: None Musculoskeletal Surgical History: Reports: Hip Replacement, Other (See Below) Other Musculoskeletal Surgeries/Procedures:: difficulty walking; right hip surgery Social & Family History - Family History Family Medical History: Noncontributory - Tobacco Use Smoking Status *Q: Never Smoker Second Hand Smoke Exposure: No - Caffeine Use Caffeine Use: Reports: Coffee Other Caffeine Use: with breakfast - Recreational Drug Use Recreational Drug Use: No - Living Situation & Occupation Living situation: Reports: Extended Care Facility 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 Denies: Shortness of Breath Cardiovascular: Reports: No Symptoms. Denies: Chest Pain GI/Abdominal: Reports: Abdominal Pain, Diarrhea, Other (Incontinent of stool upon arrival). Denies: Nausea, Vomiting Musculoskeletal: Reports: Joint Pain Neurological: Reports: No Symptoms, Confusion, Difficulty Walking. Denies: Headache, Numbness, Tingling, Weakness ED EXAM, GENERAL - Physical Exam Exam: See Below Exam Limited By: No Limitations General Appearance: Alert, WD/WN, Moderate Distress Eye Exam: Bilateral Eye: EOMI, PERRL Head: Atraumatic, Normocephalic Neck: Normal Inspection, Supple, Non-Tender, Full Range of Motion. No: Tender Midline Respiratory/Chest: No Respiratory Distress, Lungs Clear, Normal Breath Sounds, No Accessory Muscle Use, Chest Non-Tender Cardiovascular: Normal Peripheral Pulses, Regular Rate, Rhythm, No Murmur GI/Abdominal: Non-Tender, No Organomegaly, Distended, Other (hyperactive bowel sounds, incontinent of stool upon arrival). No: Guarding, Rigid, Rebound Back Exam: Normal Inspection, Full Range of Motion. No: Vertebral Tenderness Extremities: Other (tenderness with palpation to right hip joint. he does move the right leg frequently. No obvious deformity. Neurovascular intact.) Neurological: Alert, Normal Cognition, Confused Skin Exam: Warm, Dry, Intact Course - Vital Signs Last Recorded V/S: Last Vital Signs Temp 98.3 F 01/20/17 20:15 Pulse 67 01/20/17 20:15 Resp 18 01/20/17 20:15 BP 123/47 L 01/20/17 20:15 Pulse Ox 92 L 01/20/17 22:14 - Orders/Labs/Meds Orders: Active Orders 24 hr Category Date Time Status [place] Catheter Insertion [Insert Urinary Catheter] [OM. Care 01/20/17 21:45 Ordered PC] Q24H Peripheral IV Care [RC] . DIRECTED Care 01/20/17 20:26 Active Urinary Catheter Assessment [RC] ASDIRECTED Care 01/20/17 21:39 Active CXR [Chest 1V Frontal] [CR] Stat Exams 01/20/17 21:39 Ordered Cervical Spine wo Cont [CT] Stat Exams 01/20/17 20:25 Taken Head wo Cont [CT] Stat Exams 01/20/17 20:25 Taken Hip Min 2V or 3V w Pelvis Rt [CR] Stat Exams 01/20/17 20:25 Ordered CULTURE BLOOD [BC] Stat Lab 01/20/17 20:45 Received CULTURE BLOOD [BC] Stat Lab 01/20/17 20:55 Received Sodium Chloride 0.9% [Normal Saline] 1,000 ml Med 01/20/17 21:34 Active IV ONETIME Sodium Chloride 0.9% [Saline Flush] Med 01/20/17 20:25 Active 10 ml FLUSH ASDIRECTED PRN Blood Culture x2 Reflex Set [OM.PC] Stat Oth 01/20/17 20:26 Ordered Peripheral IV Insertion Adult [OM.PC] Stat Oth 01/20/17 20:25 Ordered Medication Orders Sodium Chloride (Normal Saline) 1,000 mls @ 250 mls/hr IV ONETIME ONE Stop: 01/21/17 01:33 Last Admin: 01/20/17 21:42 Dose: 250 mls/hr Sodium Chloride (Saline Flush) 10 ml FLUSH ASDIRECTED PRN PRN Reason: Keep Vein Open Last Admin: 01/20/17 20:39 Dose: 10 ml Labs: Laboratory Tests 01/20/17 01/20/17 01/20/17 Range/Units 20:41 20:45 20:45 WBC 12.38 H (4.23-9.07) K/mm3 RBC 3.49 L (4.63-6.08) M/mm3 Hgb 11.2 L (13.7-17.5) gm/L Hct 34.3 L (40.1-51.0) % MCV 98.3 H (79.0-92.2) fl MCH 32.1 (25.7-32.2) pg MCHC 32.7 (32.2-35.5) g/dl RDW Std Deviation 44.7 H (35.1-43.9) fL Plt Count 288 (163-337) K/mm3 MPV 9.9 (9.4-12.3) fl Neut % (Auto) 64.9 (34.0-67.9) % Lymph % (Auto) 22.5 (21.8-53.1) % [place] % (Auto) 11.4 (5.3-12.2) % Eos % (Auto) 0.6 L (0.8-7.0) Baso % (Auto) 0.3 (0.1-1.2) % Neut # (Auto) 8.02 H (1.78-5.38) K/mm3 Lymph # (Auto) 2.79 (1.32-3.57) K/mm3 [place] # (Auto) 1.41 H (0.30-0.82) K/mm3 Eos # (Auto) 0.08 (0.04-0.54) K/mm3 Baso # (Auto) 0.04 (0.01-0.08) K/mm3 PT 11.1 (8.0-13.0) SECONDS INR 1.02 Sodium (136-145) mEq/L Potassium (3.5-5.1) mEq/L Chloride (98-107) mEq/L Carbon Dioxide (21-32) mEq/L Anion Gap (5-15) BUN (7-18) mg/dL Creatinine (0.7-1.3) mg/dL Est Cr Clr Drug Dosing mL/min Estimated GFR (MDRD) (>60) mL/min BUN/Creatinine Ratio (14-18) Glucose (83-115) mg/dL Lactic Acid (0.4-2.0) mmol/L Calcium (8.5-10.1) mg/dL Total Bilirubin (0.2-1.0) mg/dL AST (15-37) U/L ALT (16-63) U/L Alkaline Phosphatase (46-116) U/L C-Reactive Protein 4.6 H* (<1.0) mg/dL Total Protein (6.4-8.2) g/dl Albumin (3.4-5.0) g/dl Globulin gm/dL Albumin/Globulin Ratio (1-2) Urine Color (Yellow) Urine Appearance (Clear) Urine pH (5.0-8.0) Ur Specific [place] (1.005-1.030) Urine Protein (Negative) Urine Glucose (UA) (Negative) Urine Ketones (Negative) Urine Occult Blood (Negative) Urine Nitrite (Negative) Urine Bilirubin (Negative) Urine Urobilinogen (0.2-1.0) Ur Leukocyte Esterase (Negative) Urine RBC (0-5) /hpf Urine WBC (0-5) /hpf Ur Epithelial Cells (0-5) /hpf Urine Bacteria (FEW) /hpf Hyaline Casts (0-5) /lpf Urine Mucus (FEW) /hpf 01/20/17 01/20/17 01/20/17 Range/Units 20:45 20:45 22:06 WBC (4.23-9.07) K/mm3 RBC (4.63-6.08) M/mm3 Hgb (13.7-17.5) gm/L Hct (40.1-51.0) % MCV (79.0-92.2) fl MCH (25.7-32.2) pg MCHC (32.2-35.5) g/dl RDW Std Deviation (35.1-43.9) fL Plt Count (163-337) K/mm3 MPV (9.4-12.3) fl Neut % (Auto) (34.0-67.9) % Lymph % (Auto) (21.8-53.1) % [place] % (Auto) (5.3-12.2) % Eos % (Auto) (0.8-7.0) Baso % (Auto) (0.1-1.2) % Neut # (Auto) (1.78-5.38) K/mm3 Lymph # (Auto) (1.32-3.57) K/mm3 [place] # (Auto) (0.30-0.82) K/mm3 Eos # (Auto) (0.04-0.54) K/mm3 Baso # (Auto) (0.01-0.08) K/mm3 PT (8.0-13.0) SECONDS INR Sodium 139 (136-145) mEq/L Potassium 3.3 L (3.5-5.1) mEq/L Chloride 101 (98-107) mEq/L Carbon Dioxide 28 (21-32) mEq/L Anion Gap 13.3 (5-15) BUN 68 H (7-18) mg/dL Creatinine 3.4 H (0.7-1.3) mg/dL Est Cr Clr Drug Dosing 15.02 mL/min Estimated GFR (MDRD) 17 (>60) mL/min BUN/Creatinine Ratio 20.0 H (14-18) Glucose 192 H (83-115) mg/dL Lactic Acid 2.1 H (0.4-2.0) mmol/L Calcium 9.3 (8.5-10.1) mg/dL Total Bilirubin 0.5 (0.2-1.0) mg/dL AST 24 (15-37) U/L ALT 43 (16-63) U/L Alkaline Phosphatase 53 (46-116) U/L C-Reactive Protein (<1.0) mg/dL Total Protein 6.6 (6.4-8.2) g/dl Albumin 2.8 L (3.4-5.0) g/dl Globulin 3.8 gm/dL Albumin/Globulin Ratio 0.7 L (1-2) Urine Color Yellow (Yellow) Urine Appearance Clear (Clear) Urine pH 5.5 (5.0-8.0) Ur Specific [place] 1.025 (1.005-1.030) Urine Protein 2+ H (Negative) Urine Glucose (UA) Negative (Negative) Urine Ketones Trace H (Negative) Urine Occult Blood Negative (Negative) Urine Nitrite Negative (Negative) Urine Bilirubin Negative (Negative) Urine Urobilinogen 0.2 (0.2-1.0) Ur Leukocyte Esterase Negative (Negative) Urine RBC Not seen (0-5) /hpf Urine WBC 0-5 (0-5) /hpf Ur Epithelial Cells Not seen (0-5) /hpf Urine Bacteria Few (FEW) /hpf Hyaline Casts 0-5 (0-5) /lpf Urine Mucus Few (FEW) /hpf Meds: Medications Generic Name Dose Route Start Last Admin Trade Name [place] PRN Reason Stop Dose Admin Sodium Chloride 1,000 mls @ 250 mls/hr 01/20/17 21:34 01/20/17 21:42 Normal Saline IV 01/21/17 01:33 250 mls/hr ONETIME ONE Administration Sodium Chloride 10 ml 01/20/17 20:25 01/20/17 20:39 Saline Flush FLUSH 10 ml ASDIRECTED PRN Administration Keep Vein Open Discontinued Medications Generic Name Dose Route Start Last Admin Trade Name Freq PRN Reason Stop Dose Admin Hydromorphone HCl 0.5 mg 01/20/17 20:33 01/20/17 20:38 Dilaudid IVPUSH 01/20/17 20:34 0.5 mg ONETIME ONE Administration Hydromorphone HCl 1 mg 01/20/17 21:46 01/20/17 21:49 Dilaudid IVPUSH 01/20/17 21:47 1 mg ONETIME ONE Administration Ceftriaxone Sodium 1 gm/ 100 mls @ 200 mls/hr 01/20/17 22:07 01/20/17 22:30 Sodium Chloride IV 01/20/17 22:36 200 mls/hr ONETIME ONE Administration Ondansetron HCl 4 mg 01/20/17 20:33 01/20/17 20:38 Zofran IVPUSH 01/20/17 20:34 4 mg ONETIME ONE Administration - Re-Assessments/Exams Free Text/Narrative Re-Assessment/Exam: CBC reveals WBC of 12,000. CRP is elevated at 4.6. Lactic acid is 2.1 which may be related to ARF rather than acute infection. CMP reveals Na 139, K 3.3, BUN 68 , and Creatinine of 3.4. Creatinine at discharge approximatly two weeks ago was 1.4. Glucose today is 192. UA negative for infection. Head and c-spine CT read by [facility], no acute findings. No acute bony abnormality appreciated on right hip and pelvis x-rays Chest x-ray reveals blunting of the left heart border, suspicious of left lower lobe infiltrate. No bony abnormality. No pulmonary effusion. Patients severe hip pain was managed with Dilaudid IV. He was started on NS at 250ml/hr and was given Rocephin 1 gram IV. 01/20/17 22:[address] Lester who has accepted care of the patient. He will be admitted as IP for ARF, pneumonia, and severe pain. Family was present at bedside and are agreeable to treatment plan. Departure - Departure Time of Disposition: 22:48 Disposition: Admitted As Inpatient 64 Condition: Fair Clinical Impression: Chronic renal insufficiency, stage III (moderate), Right leg pain Fall as cause of accidental injury at home as place of occurrence Qualifiers: Encounter type: initial encounter Qualified Code(s): W19.XXXA - Unspecified fall, initial encounter Dementia Qualifiers: Dementia type: Alzheimer's disease Alzheimer's disease onset: late-onset Dementia behavioral disturbance: without behavioral disturbance Qualified Code(s ): G30.1 - Alzheimer's disease with late onset - Discharge Information Referrals: Mane Barnhart MD [Primary Care Provider] - Forms: ED Department Discharge - My Orders Last 24 Hours: My Active Orders 01/20/17 20:25 Cervical Spine wo Cont [CT] Stat Head wo Cont [CT] Stat Hip Min 2V or 3V w Pelvis Rt [CR] Stat Sodium Chloride 0.9% [Saline Flush] 10 ml FLUSH ASDIRECTED PRN Peripheral IV Insertion Adult [OM.PC] Stat 01/20/17 20:26 Peripheral IV Care [RC] . DIRECTED Blood Culture x2 Reflex Set [OM.PC] Stat 01/20/17 20:45 CULTURE BLOOD [BC] Stat 01/20/17 20:55 CULTURE BLOOD [BC] Stat 01/20/17 21:34 Sodium Chloride 0.9% [Normal Saline] 1,000 ml IV ONETIME 01/20/17 21:39 Urinary Catheter Assessment [RC] ASDIRECTED CXR [Chest 1V Frontal] [CR] Stat 01/20/17 21:45 [place] Catheter Insertion [Insert Urinary Catheter] [OM.PC] Q24H - Assessment/Plan Last 24 Hours: My Active Orders 01/20/17 20:25 Cervical Spine wo Cont [CT] Stat Head wo Cont [CT] Stat Hip Min 2V or 3V w Pelvis Rt [CR] Stat Sodium Chloride 0.9% [Saline Flush] 10 ml FLUSH ASDIRECTED PRN Peripheral IV Insertion Adult [OM.PC] Stat 01/20/17 20:26 Peripheral IV Care [RC] . DIRECTED Blood Culture x2 Reflex Set [OM.PC] Stat 01/20/17 20:45 CULTURE BLOOD [BC] Stat 01/20/17 20:55 CULTURE BLOOD [BC] Stat 01/20/17 21:34 Sodium Chloride 0.9% [Normal Saline] 1,000 ml IV ONETIME 01/20/17 21:39 Urinary Catheter Assessment [RC] ASDIRECTED CXR [Chest 1V Frontal] [CR] Stat 01/20/17 21:45 [place] Catheter Insertion [Insert Urinary Catheter] [OM.PC] Q24H
[2017-01-20] MEDS ORDERED: Sodium Chloride 0.9% 1,000 ML IV ONE (21:34)
[2017-01-20] MEDS ORDERED: HYDROmorphone 1 MG/ML Syringe IVPUSH ONE (21:46)
[2017-01-20] MEDS ORDERED: cefTRIAXone 1 GM in Sodium Chloride 0.9% 100 ML IV ONE (22:07)
--- NOTE | 2017-01-20 22:46 | PCM.HP ---
H&P History of Present Illness - General Date of Service: 01/20/17 Source of Information: Patient, Old Records, Provider, RN Notes Reviewed History Limitations: Reports: Other (Baseline Dementia) - History of Present Illness Initial Comments - Free Text/Narative: This is an 86 yo elderly white male with pst medical hx/o HTN, HLD, HF with unknown EF, CAD S/p CABG, Constipation, CKD Stage 3, Acquired Absence of Kidney , BPH, Urinary Incontinence, OA, Alzheimer's Disease, Anxiety, DM2, Generalized Weakness, Difficulty walking, Amnesia and Obesity with BMI 34 who comes in with complaints of hip and back pain [facility]. Per secondary sources, the patient was found to be hypotensive with SBP in the 80s after the fall. Patient was recently discharged from the hospital after he was treated for ARF. He carries a hx/o bilateral hip replacement. Again, 2 weeks ago he fell and complained of right hip pain during that time. Patient is not a good historian due to his underlying dementia. His initial work up in ED shows a CBC remarkable for WBC of 12.38, RBC of 3.49, hemoglobin of 11.2, hematocrit of 34.3, MCV of 98.3, eosinophils of 0.6%, neutrophil counts of 8.02, and lymphocytes count of 01.4. His chemistry is remarkable for potassium of 3.3, BUN of 68, creatinine of 2.4, glucose of 192, lactic acid of 2.1, CRP of 4.6 and albumin of 2.8. His UA is negative for urinary tract infection. Head CT and cervical spine CT scan both show no acute abnormality. Hip and chest XR both films are not available for review. Patient is being admitted for medical management of intractable pain and non- oliguric acute renal failure. He is DNR/DNI. Right Hip Pain Score (Numeric/FACES): 7 - Related Data Allergies/Adverse Reactions: Allergies Allergy/AdvReac Type Severity Reaction Status Date / Time lactose AdvReac Diarrhea Verified 01/21/17 16:06 Home Medications: Home Meds Acetaminophen 500 mg PO TID 01/20/17 [History] Bumetanide 1 mg PO BID 01/20/17 [History] Carboxymethylcellulose Sodium [Refresh Tears] 2 - 3 drop OP BID PRN 01/20/17 [ History] Citalopram [Celexa] 30 mg PO DAILY 01/20/17 [History] Diltiazem [Cardizem CD] 240 mg PO DAILY 01/20/17 [History] Donepezil HCl [Aricept] 10 mg PO DAILY 01/20/17 [History] FA/Lycopene/Lut/MV,Ca,Iron,Min [Centrum] 1 tab PO DAILY 01/20/17 [History] Finasteride [Proscar] 5 mg PO BEDTIME 01/20/17 [History] Insulin Glargine,Hum.Rec.Anlog [Lantus Solostar] 10 units SQ BEDTIME 01/20/17 [ History] LORazepam [Ativan] 0.5 mg PO BID 01/20/17 [History] Lisinopril 20 mg PO BID 01/20/17 [History] Loperamide [Imodium AD] 2 mg PO Q6H PRN 01/20/17 [History] Memantine HCl [Namenda] 10 mg PO BID 01/20/17 [History] Metolazone 2.5 mg PO ASDIRECTED 01/20/17 [History] Proctor-3S/DHA/Epa/Fish Oil [Fish Oil Proctor-3 Softgel] 1 cap PO DAILY 01/20/17 [ History] Pantoprazole Sodium [Protonix] 20 mg PO TIDAC 01/20/17 [History] Psyllium Seed (With Sugar) [Metamucil Fiber Wafer] 2 each PO TID 01/20/17 [ History] Saccharomyces Boulardii [Florastor] 250 mg PO BID 01/20/17 [History] Simvastatin [Zocor] 10 mg PO BEDTIME 01/20/17 [History] Tamsulosin [Flomax] 1 cap PO DAILY 01/20/17 [History] Vit A,C & E/Lutein/Minerals [Healthy Eyes] 1 cap PO DAILY 01/20/17 [History] medroxyPROGESTERone Acetate [Depo-Provera] 150 mg IM ASDIRECTED 01/20/17 [ History] traMADol [Ultram] 50 mg PO Q12H PRN 01/20/17 [History] Past Medical History HEENT History: Reports: Other (See Below) Other HEENT History: unspecified disorder of eye and adnexa Cardiovascular History: Reports: Bypass, CAD, High Cholesterol, Hypertension Gastrointestinal History: Reports: Chronic Constipation, GERD Genitourinary History: Reports: BPH, Urinary Incontinence, Other (See Below) Musculoskeletal History: Reports: Osteoarthritis, Other (See Below) Neurological History: Reports: Alzheimers Disease Psychiatric History: Reports: Alzheimers Disease, Anxiety, Dementia, Depression Other Psychiatric History: Dtr thinks he has dome depression Endocrine/Metabolic History: Reports: Diabetes, Type II, Obesity/BMI 30+ - Past Surgical History Cardiovascular Surgical History: Reports: Coronary Artery Bypass GI Surgical History: Reports: None Male Surgical History: Reports: None Neurological Surgical History: Reports: None Musculoskeletal Surgical History: Reports: Hip Replacement, Other (See Below) Other Musculoskeletal Surgeries/Procedures:: difficulty walking; right hip surgery Social & Family History - Family History Family Medical History: Noncontributory - Tobacco Use Smoking Status *Q: Never Smoker Second Hand Smoke Exposure: No - Caffeine Use Caffeine Use: Reports: Coffee Other Caffeine Use: with breakfast - Recreational Drug Use Recreational Drug Use: No - Living Situation & Occupation Living situation: Reports: Extended Care Facility 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 He is a poor historian General: Reports: Weakness. Denies: Fever, Chills, Malaise, Fatigue HEENT: Reports: No Symptoms Pulmonary: Denies: Shortness of Breath Cardiovascular: Denies: Chest Pain, Lightheadedness Gastrointestinal: Denies: Abdominal Pain, Nausea, Vomiting Genitourinary: Reports: Incontinence, Retention Musculoskeletal: Reports: Back Pain, Joint Pain Skin: Denies: Cyanosis, Erythema, Wound, Change in Hair/Nails Psychiatric: Denies: Depression, Mood Lability, Anxiety, Cravings, Hallucinations, Suicidal Ideation Neurological: Reports: Confusion (baseline dementia), Weakness, Gait Disturbance Hematologic/Lymphatic: Reports: No Symptoms Immunologic: Reports: No Symptoms Exam - Exam Exam: See Below - Vital Signs Vital Signs: Last Vital Signs Temp 36.8 C 01/20/17 20:15 Pulse 67 01/20/17 20:15 Resp 18 01/20/17 20:15 BP 123/47 L 01/20/17 20:15 Pulse Ox 92 L 01/20/17 22:14 Weight: 104.326 kg - Exam Quality Assessment: Supplemental Oxygen General: Alert, Cooperative, Other (Obese). No: Mild Distress HEENT: Conjunctiva Clear, EACs Clear, EOMI, Hearing Intact, Mucosa Moist & Puryear , Nares Patent, Normal Nasal Septum, Posterior Pharynx Clear, Pupils Equal, Pupils Reactive Neck: Supple, Trachea Midline, +2 Carotid Pulse wo Bruit Lungs: Normal Respiratory Effort, Decreased Breath Sounds Cardiovascular: Regular Rate, Regular Rhythm GI/Abdominal Exam: Normal Bowel Sounds, Soft, Non-Tender, No Organomegaly, No Distention, No Abnormal Bruit, No Mass, Other (Obese) (Male) Exam: Other (indwelling rudolph catheter) Rectal (Males) Exam: Deferred Back Exam: Normal Inspection, Decreased Range of Motion Extremities: Normal Inspection, Normal Range of Motion, Non-Tender, No Pedal Edema, Normal Capillary Refill Peripheral Pulses: 2+: Posterior Tibial (L), Posterior Tibial (R), Dorsalis Pedis (L), Dorsalis Pedis (R) Skin: Dry, Intact. No: Rash, Ecchymosis Neuro Extensive - Mental Status: Normal Mood/Affect. No: Normal Cognition, Memory Intact Neuro Extensive - Motor, Sensory, Reflexes: CN II-XII Intact (limited examination), Abnormal Gait Psychiatric: Alert, Normal Mood. No: Normal Affect - Patient Data Result Diagrams: 01/21/17 06:09 01/21/17 06:09 *Q Meaningful Use (ADM) - VTE *Q VTE Criteria *Q: - Stroke *Q Stroke Criteria *Q: - AMI *Q AMI Criteria *Q: Problem List Initiated/Reviewed/Updated: Yes Orders Last 24hrs: Medication Orders Sodium Chloride (Normal Saline) 1,000 mls @ 250 mls/hr IV ONETIME ONE Stop: 01/21/17 01:33 Last Admin: 01/20/17 21:42 Dose: 250 mls/hr Sodium Chloride (Saline Flush) 10 ml FLUSH ASDIRECTED PRN PRN Reason: Keep Vein Open Last Admin: 01/20/17 20:39 Dose: 10 ml Assessment/Plan Comment:: Assessment/Plan: Acute: Intractable Hip Back/Pain S/p Fall - Risk Factor: Advanced Dementia, DM2, HTN, Benzo and Anti-cholinergic Meds - ROM if fairly stable - Has been getting IV Dilaudid - Fentanyl Patch 12 mcg Q72H - PRN oral/IV Pain medications - PT/OT consult Acute Renal Failure- Nonoliguric - Baseline is Stage 3, he is now Stage 4 with GFR of 17 - Cr is 3.4, recent discharge he was 1.4 - Risk Factors: Dementia, Diuretics: Metolazone and Bumex, Poor fluid intake and HF with unknown EF Hypokalemia - Likely from over diuresis - K is 3.3 - Hold diuretics - Replete with K - Subsequent levels for pharmacy to replete and monitor Lactic Acidosis - 2/2 CKD Stage 3-4 - LA is 2.1 - Gentle IV Hydration - Will monitor Leukoctyosis - WBC 12.38 and CRP 4.6 - Stress vs Lung Atelectasis - CXR: ? lower lobe infiltrate (no film or read to review) - Received onetime dose of IV Rocephin in ED High Risk Polypharmacy and High Fall Risk S/P Hypotension - Risk factors: Polypharmacy and likely inadequate volume status - Documented BP in ED 123/47 mmHg Chronic: HTN HLD HF with unknown EF CAD S/p CABG Constipation CKD Stage 3 Acquired Absence of Kidney BPH Urinary Incontinence OA Alzheimer's Disease Anxiety DM2 Generalized Weakness Difficulty walking Amnesia Obesity with BMI 34 Plan: Admit to Med-Surg Routine AM Labs Resume Some Home Meds PT/OT consult Aspiration/Fall Precautions SW/CM for d/c planning Code status: DNR/DNI
[2017-01-20] MEDS ORDERED: Loperamide 2 MG Cap PO PRN (22:48)
[2017-01-20] MEDS ORDERED: Hypromellose 0.5% Ophth Soln 15 ML Bottle EYEBOTH PRN (22:48)
[2017-01-20] MEDS ORDERED: Metoprolol Tartrate 5 MG/5 ML SDV IVPUSH PRN (22:50)
[2017-01-20] MEDS ORDERED: hydrALAZINE 20 MG/ML SDV IVPUSH PRN (22:50)
[2017-01-20] MEDS ORDERED: Magnesium Hydroxide 400 MG/5 ML Susp 30 ML Cup PO PRN (22:51)
[2017-01-20] MEDS ORDERED: Polyethylene Glycol 3350 Powder 17 GM Packet PO PRN (22:51)
[2017-01-20] MEDS ORDERED: Acetaminophen 325 MG Tab PO PRN (22:51)
[2017-01-20] MEDS ORDERED: Ondansetron 4 MG/2 ML SDV IV PRN (22:51)
[2017-01-20] MEDS ORDERED: LORazepam 2 MG/ML MDV IV PRN (22:51)
[2017-01-20] MEDS ORDERED: HYDROmorphone 1 MG/ML Syringe IVPUSH PRN (22:51)
[2017-01-20] MEDS ORDERED: Promethazine 12.5 MG in Sodium Chloride 0.9% 50 ML IV PRN (22:51)
[2017-01-20] MEDS ORDERED: Bisacodyl 5 MG Tab PO PRN (22:51)
[2017-01-20] MEDS ORDERED: Docusate Sodium 100 MG Cap PO PRN (22:51)
[2017-01-20] MEDS ORDERED: Albuterol/Ipratropium 3.0-0.5 MG/3 ML Neb Soln NEB PRN (22:51)
[2017-01-20] MEDS ORDERED: Temazepam 7.5 MG Cap PO PRN (22:51)
[2017-01-20] MEDS ORDERED: MEDROXYPROGESTERONE ACETATE 150 MG IM SCH (23:00)
[2017-01-20] MEDS ORDERED: HYDROmorphone 0.5 MG/0.5 ML Syringe IVPUSH PRN (23:19)
[2017-01-20] MEDS ORDERED: fentaNYL 12 MCG/HR Transdermal Patch TRDERM ONE (23:30)
[2017-01-21] MEDS: Potassium Chloride 20 MEQ Tab.ER PO SCH ×2 (02:02→04:23)
[2017-01-21] MEDS ORDERED: Sodium Chloride 0.9% 250 ML IV SCH (02:15)
[2017-01-21] MEDS: Saccharomyces Boulardii (Probiotic) 250 MG Cap PO SCH ×2 (08:34→22:36)
[2017-01-21] MEDS: Multivitamins,Therapeutic Tab PO SCH (08:35)
[2017-01-21] MEDS: Memantine 10 MG Tab PO SCH ×2 (08:35→22:07)
[2017-01-21] MEDS: Donepezil 10 MG Tab PO SCH (08:35)
[2017-01-21] MEDS: Lisinopril 20 MG Tab PO SCH ×2 (08:35→22:06)
[2017-01-21] MEDS: Tamsulosin 0.4 MG Cap.ER PO SCH (08:35)
[2017-01-21] MEDS: LORazepam 0.5 MG Tab PO SCH ×2 (08:35→22:07)
[2017-01-21] MEDS: Fish Oil/Omega-3 Fatty Acids 1 Gm Cap PO SCH (08:35)
[2017-01-21] MEDS: Pantoprazole 40 MG Tab.CR PO SCH ×2 (08:36→16:12)
[2017-01-21] MEDS: Acetaminophen 325 MG Tab PO SCH ×3 (08:36→22:04)
[2017-01-21] MEDS: Citalopram 20 MG Tab PO SCH (08:37)
[2017-01-21] MEDS: Multivitamins with Minerals/Folic Acid/Lutein/Zeaxanth Tab PO SCH (08:37)
[2017-01-21] MEDS: Psyllium Husk Powder Sugar Free 3.4 GM Packet PO SCH ×3 (08:37→22:37)
[2017-01-21] MEDS: Diltiazem 240 MG Cap.ER PO SCH (08:37)
--- NOTE | 2017-01-21 08:54 | CR ---
Pelvis and right hip: AP view of the pelvis was obtained as well as AP and frog-leg lateral views of the right hip. Comparison: Previous pelvis exam of 01/11/17. Bilateral hip prosthesis is seen. Components are aligned. Degenerative change noted within the visualized lower lumbar spine. Bony structures are osteopenic. Vascular calcification is identified. Nothing acute is appreciated. Impression: 1. Findings as described above. Nothing acute is identified on AP pelvis or on two-view right hip exam. Diagnostic code #2
--- NOTE | 2017-01-21 08:54 | CR ---
Chest: Frontal view of the chest was obtained. Comparison: Previous chest x-ray of 01/11/17. Heart is enlarged. Tortuous thoracic aorta is seen. Lungs show no acute infiltrates. Previous sternotomy noted. Right shoulder prosthesis is seen. Impression: 1. Stable findings as described above. Nothing acute is identified when compared to prior exam. Diagnostic code #2
[2017-01-21] MEDS ORDERED: Multivitamins with Minerals/Folic Acid/Lutein/Zeaxanth Tab PO SCH (09:00)
--- NOTE | 2017-01-21 09:02 | CT ---
CT cervical spine Technique: Multiple axial sections through the cervical spine were obtained from above C1 inferiorly to the mid T2 level. Reconstructed sagittal and coronal images were reviewed. Findings: Diffuse disc space narrowing is seen from C3-C4 through T1-T2. Mild spondylolisthesis is noted at C3-C4 with moderate spondylolisthesis at C4-C5 which is due to degenerative apophyseal change. Posterior spurring noted at C5-C6, C6-C7 and C7-T1. Diffuse anterior osteophytes are seen throughout the cervical spine. Diffuse degenerative apophyseal change is present. No fracture is identified. Moderate bilateral neural foraminal stenosis noted at C6-C7. Moderate bilateral neural foraminal stenosis noted at C5-C6. Moderate left-sided neural foraminal stenosis noted at C4-C5. Moderate to severe left-sided neural foraminal stenosis noted at C3-C4. Impression: 1. Diffuse degenerative change as described above. 2. No acute fracture is identified. Diagnostic code #3 Agree with preliminary report issued by [facility] ([facility] preliminary report dictated on 01/20/17, 10:58 PM Central Time)
--- NOTE | 2017-01-21 09:09 | CT ---
Head CT Technique: Multiple axial sections through the brain were obtained. Comparison: Prior head CT exam of 01/11/17. Findings: Ventricles along with basal cisterns and sulci over the convexities are moderately prominent. Diminished density is noted within the periventricular and subcortical white matter compatible with small vessel ischemic demyelination change. Similar findings are seen within portions of the basal ganglia. Several old lacunar infarcts are noted within the basal ganglia. No other abnormal parenchymal densities are seen. No evidence of intracranial hemorrhage. No midline shift or mass effect is seen. Bone window settings were reviewed which show no discrete calvarial abnormality. Minimal mucosal thickening is noted within the ethmoid and right maxillary sinus which is incidental. Impression: 1. Senescent change as noted above with other incidental findings. 2. Nothing acute is identified on noncontrast head CT study. Diagnostic code #2 Agree with preliminary report issued by [facility] ([facility] preliminary report dictated on 01/20/17, 10:55 PM Central Time)
[2017-01-21] MEDS: oxyCODONE 5 MG Tab PO PRN ×2 (11:49→17:14)
--- NOTE | 2017-01-21 14:24 | PCM.PN ---
- General Info Date of Service: 01/21/17 Admission Dx/Problem (Free Text): Mr Rust is seen this morning resting comfortably. Pleasant, no concerns but is with dementia-chronic. VSS. Functional Status: Reports: Pain Controlled. Denies: Ambulating - Review of Systems General: Denies: Fever Pulmonary: Denies: Shortness of Breath Cardiovascular: Denies: Chest Pain Gastrointestinal: Denies: Abdominal Pain Systems Review Comment:: Difficult to obtain due to baseline dementia - Patient Data Vitals - Most Recent: Last Vital Signs Temp 98.1 F 01/21/17 12:17 Pulse 60 01/21/17 12:17 Resp 16 01/21/17 12:17 BP 122/68 01/21/17 12:17 Pulse Ox 95 01/21/17 12:17 Weight - Most Recent: 227 lb 12.8 oz I&O - Last 24 Hours: Intake & Output 01/20/17 01/21/17 01/21/17 22:59 06:59 14:59 Intake Total 960 0 Output Total 350 Balance 610 0 Lab Results Last 24 Hours: Laboratory Results - last 24 hr 01/21/17 01/21/17 01/21/17 Range/Units 06:09 06:09 06:12 WBC 7.49 (4.23-9.07) K/mm3 RBC 4.31 L (4.63-6.08) M/mm3 Hgb 14.1 (13.7-17.5) gm/L Hct 41.9 (40.1-51.0) % MCV 97.2 H (79.0-92.2) fl MCH 32.7 H (25.7-32.2) pg MCHC 33.7 (32.2-35.5) g/dl RDW Std Deviation 45.8 H (35.1-43.9) fL Plt Count 183 (163-337) K/mm3 MPV 10.0 (9.4-12.3) fl Neut % (Auto) 64.7 (34.0-67.9) % Lymph % (Auto) 22.3 (21.8-53.1) % [place] % (Auto) 11.2 (5.3-12.2) % Eos % (Auto) 1.2 (0.8-7.0) Baso % (Auto) 0.1 (0.1-1.2) % Neut # (Auto) 4.84 (1.78-5.38) K/mm3 Lymph # (Auto) 1.67 (1.32-3.57) K/mm3 [place] # (Auto) 0.84 H (0.30-0.82) K/mm3 Eos # (Auto) 0.09 (0.04-0.54) K/mm3 Baso # (Auto) 0.01 (0.01-0.08) K/mm3 Sodium 142 (136-145) mEq/L Potassium 3.6 (3.5-5.1) mEq/L Chloride 104 (98-107) mEq/L Carbon Dioxide 27 (21-32) mEq/L Anion Gap 14.6 (5-15) BUN 64 H (7-18) mg/dL Creatinine 2.9 H (0.7-1.3) mg/dL Est Cr Clr Drug Dosing 17.61 mL/min Estimated GFR (MDRD) 21 (>60) mL/min BUN/Creatinine Ratio 22.1 H (14-18) Glucose 140 H (83-115) mg/dL POC Glucose 142 H (83-110) mg/dL Calcium 8.7 (8.5-10.1) mg/dL Magnesium 1.8 (1.8-2.4) mg/dl C-Reactive Protein 4.0 H* (<1.0) mg/dL Med Orders - Current: Current Medications Acetaminophen (Tylenol) 650 mg PO Q4H PRN PRN Reason: Pain (Mild 1-3)/fever Acetaminophen (Tylenol) 650 mg PO TID [facility] Last Admin: 01/21/17 08:36 Dose: 650 mg Albuterol/Ipratropium (Duoneb 3.0-0.5 Mg/3 Ml) 3 ml NEB Q4H PRN PRN Reason: Shortness Of Breath/wheezing Artificial Tears (Isopto Tears 0.5% Ophth Soln) 2 - 3 ml EYEBOTH BID PRN PRN Reason: Dry Eyes Bisacodyl (Dulcolax) 5 mg PO DAILY PRN PRN Reason: Constipation Citalopram Hydrobromide (Celexa) 30 mg PO DAILY [facility] Last Admin: 01/21/17 08:37 Dose: 30 mg Diltiazem HCl (Dilacor Xr) 240 mg PO DAILY [facility] Last Admin: 01/21/17 08:37 Dose: 240 mg Docusate Sodium (Colace) 100 mg PO BID PRN PRN Reason: Constipation Donepezil HCl (Aricept) 10 mg PO DAILY [facility] Last Admin: 01/21/17 08:35 Dose: 10 mg Fentanyl (Duragesic) 12 mcg TRDERM Q72H [facility] Finasteride (Proscar) 5 mg PO BEDTIME [facility] Fish Oil (Fish Oil) 1 gm PO DAILY [facility] Last Admin: 01/21/17 08:35 Dose: 1 gm Hydralazine HCl (Apresoline) 10 mg IVPUSH Q4H PRN PRN Reason: Hypertension Hydromorphone HCl (Dilaudid) 0.5 mg IVPUSH Q3H PRN PRN Reason: Pain (severe 7-10) Promethazine HCl 12.5 mg/ (Sodium Chloride) 50.5 mls @ 100 mls/hr IV Q6H PRN PRN Reason: Nausea/Vomiting Sodium Chloride (Normal Saline) 250 mls @ 25 mls/hr IV ASDIRECTED [facility] Last Admin: 01/21/17 02:21 Dose: 25 mls/hr Insulin Detemir (Levemir) 10 unit SUBCUT BEDTIME [facility] Lisinopril (Prinivil) 20 mg PO BID [facility] Last Admin: 01/21/17 08:35 Dose: 20 mg Loperamide HCl (Imodium) 2 mg PO Q6H PRN PRN Reason: Diarrhea Lorazepam (Ativan) 0.5 mg PO BID [facility] Last Admin: 01/21/17 08:35 Dose: 0.5 mg Lorazepam (Ativan) 0.25 mg IV Q4H PRN PRN Reason: Anxiety Magnesium Hydroxide (Milk Of Magnesia) 30 ml PO Q12H PRN PRN Reason: Constipation Magnesium Sulfate (Pharmacy To Dose - Magnesium Replacement) 1 dose .XX ASDIRECTED [facility] Memantine (Namenda) 10 mg PO BID [facility] Last Admin: 01/21/17 08:35 Dose: 10 mg Metoprolol Tartrate (Lopressor) 5 mg IVPUSH Q4H PRN PRN Reason: Tachycardia Miscellaneous Information (Remove Patch) 1 ea TRDERM Q72H [facility] Multivitamins (Thera) 1 each PO DAILY [facility] Last Admin: 01/21/17 08:35 Dose: 1 each Ondansetron HCl (Zofran) 4 mg IV Q6H PRN PRN Reason: Nausea/Vomiting Oxycodone HCl (Oxycodone) 5 mg PO Q4H PRN PRN Reason: Pain (moderate 4-6) Last Admin: 01/21/17 11:49 Dose: 5 mg Pantoprazole Sodium (Protonix) 40 mg PO BIDMEALS [facility] Last Admin: 01/21/17 08:36 Dose: 40 mg Polyethylene Glycol (Miralax) 17 gm PO DAILY PRN PRN Reason: Constipation Potassium Chloride (Pharmacy To Dose - Potassium Replacement) 1 dose .XX ASDIRECTED [facility] Psyllium Husk (Metamucil Sugar Free) 2 packet PO TID [facility] Last Admin: 01/21/17 08:37 Dose: 2 packet Saccharomyces Boulardii (Florastor) 250 mg PO BID [facility] Last Admin: 01/21/17 08:34 Dose: 250 mg Senna/Docusate Sodium (Senna Plus) 1 tab PO BID PRN PRN Reason: Constipation Simvastatin (Zocor) 10 mg PO BEDTIME [facility] Sodium Chloride (Saline Flush) 10 ml FLUSH ASDIRECTED PRN PRN Reason: Keep Vein Open Last Admin: 01/20/17 20:39 Dose: 10 ml Tamsulosin HCl (Flomax) 0.4 mg PO DAILY [facility] Last Admin: 01/21/17 08:35 Dose: 0.4 mg Temazepam (Restoril) 7.5 mg PO BEDTIME PRN PRN Reason: Sleep Vit A/Vit C/Vit E/Selen/Cu/Zn/Lutei (Icaps Mv) 1 tab PO DAILY [facility] Last Admin: 01/21/17 08:37 Dose: 1 tab Discontinued Medications Fentanyl (Duragesic) 12 mcg TRDERM ONETIME ONE Stop: 01/20/17 23:31 Last Admin: 01/20/17 23:43 Dose: 12 mcg Hydromorphone HCl (Dilaudid) 0.5 mg IVPUSH ONETIME ONE Stop: 01/20/17 20:34 Last Admin: 01/20/17 20:38 Dose: 0.5 mg Hydromorphone HCl (Dilaudid) 1 mg IVPUSH ONETIME ONE Stop: 01/20/17 21:47 Last Admin: 01/20/17 21:49 Dose: 1 mg Sodium Chloride (Normal Saline) 1,000 mls @ 250 mls/hr IV ONETIME ONE Stop: 01/21/17 01:33 Last Admin: 01/20/17 21:42 Dose: 250 mls/hr Ceftriaxone Sodium 1 gm/ (Sodium Chloride) 100 mls @ 200 mls/hr IV ONETIME ONE Stop: 01/20/17 22:36 Last Admin: 01/20/17 22:30 Dose: 200 mls/hr Non-Formulary Medication (Medroxyprogesterone Acetate) 150 mg IM ASDIRECTED [facility] Ondansetron HCl (Zofran) 4 mg IVPUSH ONETIME ONE Stop: 01/20/17 20:34 Last Admin: 01/20/17 20:38 Dose: 4 mg Potassium Chloride (Klor-Con M20) 20 meq PO Q3H [facility] Stop: 01/21/17 02:46 Last Admin: 01/21/17 04:23 Dose: 20 meq - Exam Quality Assessment: DVT Prophylaxis General: Alert, No Acute Distress HEENT: Pupils Equal, Mucous Membr. Moist/Rosine Neck: Supple Lungs: Clear to Auscultation, Decreased Breath Sounds (bases) Cardiovascular: Regular Rate, Regular Rhythm, Other (distant) GI/Abdominal Exam: Normal Bowel Sounds, Soft (Male) Exam: Deferred Extremities: Normal Inspection Peripheral Pulses: 1+: Dorsalis Pedis (L), Dorsalis Pedis (R) Neurological: No New Focal Deficit Psy/Mental Status: Alert - Problem List & Annotations (1) Chronic renal insufficiency, stage III (moderate) SNOMED Code(s): 651776408 Code(s): N18.3 - CHRONIC KIDNEY DISEASE, STAGE 3 (MODERATE) Status: Acute Priority: High Current Visit: Yes (2) Right leg pain SNOMED Code(s): 531352800 Code(s): M79.604 - PAIN IN RIGHT LEG Status: Acute Priority: Low Current Visit: Yes (3) Dementia SNOMED Code(s): 91734658 Code(s): F03.90 - UNSPECIFIED DEMENTIA WITHOUT BEHAVIORAL DISTURBANCE Status: Chronic Priority: Medium Current Visit: Yes Qualifiers: Dementia type: Alzheimer's disease Alzheimer's disease onset: late-onset Dementia behavioral disturbance: without behavioral disturbance Qualified Code (s): G30.1 - Alzheimer's disease with late onset; F02.80 - Dementia in other diseases classified elsewhere without behavioral disturbance (4) Fall as cause of accidental injury at home as place of occurrence SNOMED Code(s): 89306248 Code(s): W19.XXXA - UNSPECIFIED FALL, INITIAL ENCOUNTER; Y92.009 - UNSP PLACE IN UNSP NON-INSTITUT (PRIVATE) RESIDENCE PLACE Status: Acute Priority: High Current Visit: Yes Qualifiers: Encounter type: initial encounter Qualified Code(s): W19.XXXA - Unspecified fall, initial encounter; Y92.009 - Unspecified place in unspecified non-institutional (private) residence as the place of occurrence of the external cause - Problem List Review Problem List Initiated/Reviewed/Updated: Yes - Plan Plan:: Assessment/Plan: Acute: Intractable Hip Back/Pain S/p Fall---improved today - Risk Factor: Advanced Dementia, DM2, HTN, Benzo and Anti-cholinergic Meds - ROM if fairly stable---normal xrays in ED - Has been getting IV Dilaudid - Fentanyl Patch 12 mcg Q72H - PRN oral/IV Pain medications - PT/OT consult Acute Renal Failure- Nonoliguric - Baseline is Stage 3, he is now Stage 4 with GFR of 17---improved - Cr is 3.4, recent discharge he was 1.4 - Risk Factors: Dementia, Diuretics: Metolazone and Bumex, Poor fluid intake and HF with unknown EF Hypokalemia--resolved - Likely from over diuresis - K is 3.3 - Hold diuretics - Replete with K - Subsequent levels for pharmacy to replete and monitor Lactic Acidosis - 2/2 CKD Stage 3-4 - LA is 2.1 - Gentle IV Hydration - Will monitor Leukoctyosis---resolved - WBC 12.38 and CRP 4.6 - Stress vs Lung Atelectasis - CXR: ? lower lobe infiltrate (no film of read out to review) - Received onetime dose of IV Rocephin in ED High Risk Polypharmacy and High Fall Risk S/P Hypotension - Risk factors: Polypharmacy and likely inadequate volume status - Documented BP in ED 123/47 mmHg Chronic: HTN HLD HF with unknown EF CAD S/p CABG Constipation CKD Stage 3 Acquired Absence of Kidney BPH Urinary Incontinence OA Alzheimer's Disease Anxiety DM2 Generalized Weakness Difficulty walking Amnesia Obesity with BMI 34 Plan: Admit to Med-Surg Routine AM Labs Resume Some Home Meds PT/OT consult Aspiration/Fall Precautions SW/CM for d/c planning---cont to follow labs, VS. May DC back to SNF tomorrow if continues to do well. Code status: DNR/DNI
[2017-01-21] MEDS: Finasteride 5 MG Tab PO SCH (22:06)
[2017-01-21] MEDS: Simvastatin 10 MG Tab PO SCH (22:08)
[2017-01-21] MEDS: Insulin Detemir 100 Units/ML 3 ML Pen SUBCUT SCH (22:41)
[2017-01-22] MEDS: Pantoprazole 40 MG Tab.CR PO SCH ×2 (06:56→16:25)
--- NOTE | 2017-01-22 07:44 | PCM.PN ---
- General Info Date of Service: 01/22/17 Admission Dx/Problem (Free Text): Mr Rust is seen this morning resting comfortably. Pleasant, no concerns but is with dementia-chronic. VSS. Subjective Update: Follow Up Functional Status: Reports: Pain Controlled, Tolerating Diet, Urinating. Denies : New Symptoms - Review of Systems General: Denies: Fever, Weakness, Fatigue, Malaise HEENT: Reports: No Symptoms Pulmonary: Denies: Shortness of Breath Cardiovascular: Denies: Chest Pain Gastrointestinal: Denies: Abdominal Pain, Nausea, Vomiting Genitourinary: Reports: No Symptoms Musculoskeletal: Reports: No Symptoms Skin: Denies: Cyanosis, Bruising Neurological: Reports: Difficulty Walking, Gait Disturbance. Denies: Confusion Psychiatric: Denies: Depression, Anxiety, Agitation, Cravings, Hallucinations Systems Review Comment:: No significant overnight or acute issues. He feels much better. He is afebrile but his WBC is up 9.84 from 7.49. He has no new complaints. - Patient Data Vitals - Most Recent: Last Vital Signs Temp 36.3 C 01/21/17 22:01 Pulse 80 01/21/17 22:01 Resp 18 01/21/17 22:01 BP 126/55 L 01/21/17 22:06 Pulse Ox 95 01/21/17 22:01 Weight - Most Recent: 104.145 kg I&O - Last 24 Hours: Intake & Output 01/21/17 01/22/17 01/22/17 22:59 06:59 14:59 Intake Total 1123 500 Output Total 200 150 Balance 923 350 Lab Results Last 24 Hours: Laboratory Results - last 24 hr 01/21/17 01/22/17 01/22/17 Range/Units 22:01 05:50 05:50 WBC 9.84 H (4.23-9.07) K/mm3 RBC 3.94 L (4.63-6.08) M/mm3 Hgb 13.8 (13.7-17.5) gm/L Hct 40.1 (40.1-51.0) % MCV 101.8 H (79.0-92.2) fl MCH 35.0 H (25.7-32.2) pg MCHC 34.4 (32.2-35.5) g/dl RDW Std Deviation 49.0 H (35.1-43.9) fL Plt Count 90 L (163-337) K/mm3 MPV 10.0 (9.4-12.3) fl Neut % (Auto) 77.5 H (34.0-67.9) % Lymph % (Auto) 14.9 L (21.8-53.1) % Perkins % (Auto) 7.2 (5.3-12.2) % Eos % (Auto) 0 L (0.8-7.0) Baso % (Auto) 0.2 (0.1-1.2) % Neut # (Auto) 7.62 H (1.78-5.38) K/mm3 Lymph # (Auto) 1.47 (1.32-3.57) K/mm3 Perkins # (Auto) 0.71 (0.30-0.82) K/mm3 Eos # (Auto) 0.00 L (0.04-0.54) K/mm3 Baso # (Auto) 0.02 (0.01-0.08) K/mm3 Manual Slide Review Abnormal smear Sodium 141 (136-145) mEq/L Potassium 3.8 (3.5-5.1) mEq/L Chloride 105 (98-107) mEq/L Carbon Dioxide 27 (21-32) mEq/L Anion Gap 12.8 (5-15) BUN 54 H (7-18) mg/dL Creatinine 2.2 H (0.7-1.3) mg/dL Est Cr Clr Drug Dosing 23.21 mL/min Estimated GFR (MDRD) 28 (>60) mL/min BUN/Creatinine Ratio 24.5 H (14-18) Glucose 111 (83-115) mg/dL POC Glucose 137 H (83-110) mg/dL Calcium 8.8 (8.5-10.1) mg/dL Magnesium 1.8 (1.8-2.4) mg/dl C-Reactive Protein 3.2 H* (<1.0) mg/dL 01/22/17 Range/Units 06:59 WBC (4.23-9.07) K/mm3 RBC (4.63-6.08) M/mm3 Hgb (13.7-17.5) gm/L Hct (40.1-51.0) % MCV (79.0-92.2) fl MCH (25.7-32.2) pg MCHC (32.2-35.5) g/dl RDW Std Deviation (35.1-43.9) fL Plt Count (163-337) K/mm3 MPV (9.4-12.3) fl Neut % (Auto) (34.0-67.9) % Lymph % (Auto) (21.8-53.1) % Perkins % (Auto) (5.3-12.2) % Eos % (Auto) (0.8-7.0) Baso % (Auto) (0.1-1.2) % Neut # (Auto) (1.78-5.38) K/mm3 Lymph # (Auto) (1.32-3.57) K/mm3 [place] # (Auto) (0.30-0.82) K/mm3 Eos # (Auto) (0.04-0.54) K/mm3 Baso # (Auto) (0.01-0.08) K/mm3 Manual Slide Review Sodium (136-145) mEq/L Potassium (3.5-5.1) mEq/L Chloride (98-107) mEq/L Carbon Dioxide (21-32) mEq/L Anion Gap (5-15) BUN (7-18) mg/dL Creatinine (0.7-1.3) mg/dL Est Cr Clr Drug Dosing mL/min Estimated GFR (MDRD) (>60) mL/min BUN/Creatinine Ratio (14-18) Glucose (83-115) mg/dL POC Glucose 107 (83-110) mg/dL Calcium (8.5-10.1) mg/dL Magnesium (1.8-2.4) mg/dl C-Reactive Protein (<1.0) mg/dL Med Orders - Current: Current Medications Acetaminophen (Tylenol) 650 mg PO Q4H PRN PRN Reason: Pain (Mild 1-3)/fever Acetaminophen (Tylenol) 650 mg PO TID [facility] Last Admin: 01/21/17 22:04 Dose: 650 mg Albuterol/Ipratropium (Duoneb 3.0-0.5 Mg/3 Ml) 3 ml NEB Q4H PRN PRN Reason: Shortness Of Breath/wheezing Artificial Tears (Isopto Tears 0.5% Ophth Soln) 2 - 3 ml EYEBOTH BID PRN PRN Reason: Dry Eyes Bisacodyl (Dulcolax) 5 mg PO DAILY PRN PRN Reason: Constipation Citalopram Hydrobromide (Celexa) 30 mg PO DAILY [facility] Last Admin: 01/21/17 08:37 Dose: 30 mg Diltiazem HCl (Dilacor Xr) 240 mg PO DAILY [facility] Last Admin: 01/21/17 08:37 Dose: 240 mg Docusate Sodium (Colace) 100 mg PO BID PRN PRN Reason: Constipation Donepezil HCl (Aricept) 10 mg PO DAILY [facility] Last Admin: 01/21/17 08:35 Dose: 10 mg Fentanyl (Duragesic) 12 mcg TRDERM Q72H [facility] Finasteride (Proscar) 5 mg PO BEDTIME [facility] Last Admin: 01/21/17 22:06 Dose: 5 mg Fish Oil (Fish Oil) 1 gm PO DAILY [facility] Last Admin: 01/21/17 08:35 Dose: 1 gm Hydralazine HCl (Apresoline) 10 mg IVPUSH Q4H PRN PRN Reason: Hypertension Hydromorphone HCl (Dilaudid) 0.5 mg IVPUSH Q3H PRN PRN Reason: Pain (severe 7-10) Promethazine HCl 12.5 mg/ (Sodium Chloride) 50.5 mls @ 100 mls/hr IV Q6H PRN PRN Reason: Nausea/Vomiting Insulin Detemir (Levemir) 10 unit SUBCUT BEDTIME [facility] Last Admin: 01/21/17 22:41 Dose: 10 units Lisinopril (Prinivil) 20 mg PO BID [facility] Last Admin: 01/21/17 22:06 Dose: 20 mg Loperamide HCl (Imodium) 2 mg PO Q6H PRN PRN Reason: Diarrhea Lorazepam (Ativan) 0.5 mg PO BID [facility] Last Admin: 01/21/17 22:07 Dose: 0.5 mg Lorazepam (Ativan) 0.25 mg IV Q4H PRN PRN Reason: Anxiety Magnesium Hydroxide (Milk Of Magnesia) 30 ml PO Q12H PRN PRN Reason: Constipation Magnesium Sulfate (Pharmacy To Dose - Magnesium Replacement) 1 dose .XX ASDIRECTED [facility] Memantine (Namenda) 10 mg PO BID [facility] Last Admin: 01/21/17 22:07 Dose: 10 mg Metoprolol Tartrate (Lopressor) 5 mg IVPUSH Q4H PRN PRN Reason: Tachycardia Miscellaneous Information (Remove Patch) 1 ea TRDERM Q72H [facility] Multivitamins (Thera) 1 each PO DAILY [facility] Last Admin: 01/21/17 08:35 Dose: 1 each Ondansetron HCl (Zofran) 4 mg IV Q6H PRN PRN Reason: Nausea/Vomiting Oxycodone HCl (Oxycodone) 5 mg PO Q4H PRN PRN Reason: Pain (moderate 4-6) Last Admin: 01/21/17 17:14 Dose: 5 mg Pantoprazole Sodium (Protonix) 40 mg PO BIDMEALS [facility] Last Admin: 01/22/17 06:56 Dose: 40 mg Polyethylene Glycol (Miralax) 17 gm PO DAILY PRN PRN Reason: Constipation Potassium Chloride (Pharmacy To Dose - Potassium Replacement) 1 dose .XX ASDIRECTED [facility] Psyllium Husk (Metamucil Sugar Free) 2 packet PO TID [facility] Last Admin: 01/21/17 22:37 Dose: 2 packet Saccharomyces Boulardii (Florastor) 250 mg PO BID [facility] Last Admin: 01/21/17 22:36 Dose: 250 mg Senna/Docusate Sodium (Senna Plus) 1 tab PO BID PRN PRN Reason: Constipation Simvastatin (Zocor) 10 mg PO BEDTIME [facility] Last Admin: 01/21/17 22:08 Dose: 10 mg Sodium Chloride (Saline Flush) 10 ml FLUSH ASDIRECTED PRN PRN Reason: Keep Vein Open Last Admin: 01/20/17 20:39 Dose: 10 ml Tamsulosin HCl (Flomax) 0.4 mg PO DAILY [facility] Last Admin: 01/21/17 08:35 Dose: 0.4 mg Temazepam (Restoril) 7.5 mg PO BEDTIME PRN PRN Reason: Sleep Vit A/Vit C/Vit E/Selen/Cu/Zn/Lutei (Icaps Mv) 1 tab PO DAILY [facility] Last Admin: 01/21/17 08:37 Dose: 1 tab Discontinued Medications Fentanyl (Duragesic) 12 mcg TRDERM ONETIME ONE Stop: 01/20/17 23:31 Last Admin: 01/20/17 23:43 Dose: 12 mcg Hydromorphone HCl (Dilaudid) 0.5 mg IVPUSH ONETIME ONE Stop: 01/20/17 20:34 Last Admin: 01/20/17 20:38 Dose: 0.5 mg Hydromorphone HCl (Dilaudid) 1 mg IVPUSH ONETIME ONE Stop: 01/20/17 21:47 Last Admin: 01/20/17 21:49 Dose: 1 mg Sodium Chloride (Normal Saline) 1,000 mls @ 250 mls/hr IV ONETIME ONE Stop: 01/21/17 01:33 Last Admin: 01/20/17 21:42 Dose: 250 mls/hr Ceftriaxone Sodium 1 gm/ (Sodium Chloride) 100 mls @ 200 mls/hr IV ONETIME ONE Stop: 01/20/17 22:36 Last Admin: 01/20/17 22:30 Dose: 200 mls/hr Sodium Chloride (Normal Saline) 250 mls @ 25 mls/hr IV ASDIRECTED [facility] Last Admin: 01/21/17 02:21 Dose: 25 mls/hr Non-Formulary Medication (Medroxyprogesterone Acetate) 150 mg IM ASDIRECTED [facility] Ondansetron HCl (Zofran) 4 mg IVPUSH ONETIME ONE Stop: 01/20/17 20:34 Last Admin: 01/20/17 20:38 Dose: 4 mg Potassium Chloride (Klor-Con M20) 20 meq PO Q3H [facility] Stop: 01/21/17 02:46 Last Admin: 01/21/17 04:23 Dose: 20 meq - Exam Quality Assessment: No: Supplemental Oxygen General: Alert, Cooperative, No Acute Distress HEENT: Pupils Equal, Pupils Reactive, EOMI, Mucous Membr. Moist/[place] Neck: Supple, Trachea Midline, No JVD Lungs: Normal Respiratory Effort, Decreased Breath Sounds Cardiovascular: Regular Rate, Regular Rhythm GI/Abdominal Exam: Normal Bowel Sounds, Soft, Non-Tender, No Organomegaly, No Distention, No Abnormal Bruit, No Mass (Male) Exam: Deferred Back Exam: Normal Inspection, Decreased Range of Motion Extremities: Normal Inspection, Normal Range of Motion, Non-Tender, No Pedal Edema, Normal Capillary Refill Peripheral Pulses: 2+: Dorsalis Pedis (L), Dorsalis Pedis (R) Skin: Warm, Dry, Intact Neurological: No New Focal Deficit Psy/Mental Status: Alert, Normal Affect, Normal Mood - Problem List Review Problem List Initiated/Reviewed/Updated: Yes - My Orders Last 24 Hours: My Active Orders 01/21/17 07:00 Pantoprazole [ProTONIX] 40 mg PO BIDMEALS 01/21/17 09:00 Acetaminophen [Tylenol] 650 mg PO TID Citalopram [Celexa] 30 mg PO DAILY Diltiazem [Dilacor XR] 240 mg PO DAILY Donepezil [Aricept] 10 mg PO DAILY Fish Oil/[place]-3 Fatty Acids [Fish Oil] 1 gm PO DAILY LORazepam [Ativan] 0.5 mg PO BID Lisinopril [Prinivil] 20 mg PO BID Memantine [Namenda] 10 mg PO BID Multivitamins,Therapeutic [Thera] 1 each PO DAILY Multivitamins/Min/FA/Lut/Zeax [ICaps MV] 1 tab PO DAILY Psyllium Husk/Aspartame [Metamucil Sugar Free] 2 packet PO TID Saccharomyces Boulardii [Florastor] 250 mg PO BID Tamsulosin [Flomax] 0.4 mg PO DAILY 01/21/17 21:00 Finasteride [Proscar] 5 mg PO BEDTIME Insulin Detemir [Levemir] 10 unit SUBCUT BEDTIME Simvastatin [Zocor] 10 mg PO BEDTIME 01/23/17 05:11 BASIC METABOLIC PANEL,BMP [CHEM] AM C-REACTIVE PROTEIN [CHEM] AM CBC WITH AUTO DIFF [HEME] AM MAGNESIUM [CHEM] AM 01/23/17 22:00 Remove Patch 1 ea TRDERM Q72H fentaNYL [Duragesic] 12 mcg TRDERM Q72H - Plan Plan:: Assessment/Plan: Acute: Acute Renal Failure-Nonoliguric, Improving with good urine output - Baseline is Stage 3 - Cr 3.4---> 2.2 - Risk Factors: Dementia, Diuretics: Metolazone and Bumex, Poor fluid intake and HF with unknown EF Leukoctyosis - WBC 12.38 ---> 9.84 and CRP 4.6 --> 3.2 - Stress vs Lung Atelectasis - CXR: formal radiology report reads nothing acute identified - Received onetime dose of IV Rocephin in ED High Risk Polypharmacy and High Fall Risk Resolved: Intractable Hip Back/Pain S/p Fall - Risk Factor: Advanced Dementia, DM2, HTN, Benzo and Anti-cholinergic Meds - ROM if fairly stable - Has been getting IV Dilaudid - Fentanyl Patch 12 mcg Q72H - PRN oral/IV Pain medications - PT/OT consult S/P Hypotension - Risk factors: Polypharmacy and likely inadequate volume status - Documented BP in ED 123/47 mmHg Hypokalemia - Likely from over diuresis - K is 3.3 - Hold diuretics - Replete with K - Subsequent levels for pharmacy to replete and monitor Lactic Acidosis - 2/2 CKD Stage 3-4 - Likely resolved - LA is 2.1 - Gentle IV Hydration - Will monitor Chronic: HTN HLD HF with unknown EF CAD S/p CABG Constipation CKD Stage 3 Acquired Absence of Kidney BPH Urinary Incontinence OA Alzheimer's Disease Anxiety DM2 Generalized Weakness Difficulty walking Amnesia Obesity with BMI 34 Plan: He is clinically much better Continue current treatment 250 ml NS bolus x1 Start 1L NS IV at 50 cc/hr for maintenance Repeat BMP later today Routine AM Labs Continue PT/OT Aspiration/Fall Precautions SW/CM for d/c planning Code status: DNR/DNI
[2017-01-22] MEDS ORDERED: Sodium Chloride 0.9% 1,000 ML IV SCH (08:30)
[2017-01-22] MEDS ORDERED: Sodium Chloride 0.9% 500 ML IV ONE (08:31)
[2017-01-22] MEDS: Sodium Chloride 0.9% 250 ML IV ONE ×2 (09:05→23:49)
[2017-01-22] MEDS: Saccharomyces Boulardii (Probiotic) 250 MG Cap PO SCH ×2 (09:25→20:06)
[2017-01-22] MEDS: Memantine 10 MG Tab PO SCH ×2 (09:25→20:06)
[2017-01-22] MEDS: Donepezil 10 MG Tab PO SCH (09:25)
[2017-01-22] MEDS: Citalopram 20 MG Tab PO SCH (09:25)
[2017-01-22] MEDS: Multivitamins,Therapeutic Tab PO SCH (09:25)
[2017-01-22] MEDS: Fish Oil/Omega-3 Fatty Acids 1 Gm Cap PO SCH (09:25)
[2017-01-22] MEDS: Diltiazem 240 MG Cap.ER PO SCH (09:25)
[2017-01-22] MEDS: Tamsulosin 0.4 MG Cap.ER PO SCH (09:26)
[2017-01-22] MEDS: Multivitamins with Minerals/Folic Acid/Lutein/Zeaxanth Tab PO SCH (09:26)
[2017-01-22] MEDS: Acetaminophen 325 MG Tab PO SCH ×3 (09:26→20:07)
[2017-01-22] MEDS: Lisinopril 20 MG Tab PO SCH ×2 (09:26→20:06)
[2017-01-22] MEDS: LORazepam 0.5 MG Tab PO SCH ×2 (09:26→20:04)
[2017-01-22] MEDS: Psyllium Husk Powder Sugar Free 3.4 GM Packet PO SCH ×3 (12:01→20:08)
[2017-01-22] MEDS ORDERED: Magnesium Sulfate/Water 2 GM in Premix Bag 1 BAG IV ONE (14:45)
[2017-01-22] MEDS: Simvastatin 10 MG Tab PO SCH (20:06)
[2017-01-22] MEDS: Finasteride 5 MG Tab PO SCH (20:06)
[2017-01-22] MEDS: Sodium Chloride 0.9% 1,000 ML IV SCH (20:15)
[2017-01-22] MEDS: Insulin Detemir 100 Units/ML 3 ML Pen SUBCUT SCH (20:28)
[2017-01-23] MEDS: Pantoprazole 40 MG Tab.CR PO SCH ×2 (06:38→17:28)
[2017-01-23] MEDS: Sodium Chloride 0.9% 1,000 ML IV SCH ×2 (06:44→17:28)
--- NOTE | 2017-01-23 07:50 | PCM.PN ---
- General Info Date of Service: 01/23/17 Admission Dx/Problem (Free Text): Mr Rust is seen this morning resting comfortably. Pleasant, no concerns but is with dementia-chronic. VSS. Subjective Update: Follow Up Functional Status: Reports: Pain Controlled, Tolerating Diet, Urinating, New Symptoms (leg hurts) - Review of Systems General: Denies: Fever, Weakness, Fatigue, Malaise HEENT: Reports: No Symptoms Pulmonary: Denies: Shortness of Breath Cardiovascular: Denies: Chest Pain, Dyspnea on Exertion, Edema, Lightheadedness Gastrointestinal: Denies: Abdominal Pain, Nausea, Vomiting Genitourinary: Reports: No Symptoms Musculoskeletal: Reports: Leg Pain, Joint Pain. Denies: Neck Pain, Shoulder Pain, Hand Pain, Joint Swelling Skin: Denies: Cyanosis, Jaundice, Pallor, Pruritis, Rash Neurological: Reports: Difficulty Walking, Gait Disturbance. Denies: Confusion , Pre-Existing Deficit, Weakness Psychiatric: Denies: Depression, Mood Lability, Anxiety, Agitation, Cravings, Hallucinations Systems Review Comment:: No overnight issues. He is essentially the same as yesterday clinically. He complaints of leg pain and rates it at 10/10. He is currently sitting up on a chair appears to be uncomfortable. He has no other acute issues of complaints. His renal function continues to improve. - Patient Data Vitals - Most Recent: Last Vital Signs Temp 36.8 C 01/23/17 03:09 Pulse 58 L 01/23/17 03:09 Resp 18 01/22/17 23:53 BP 148/51 H 01/23/17 03:09 Pulse Ox 96 01/23/17 03:09 Weight - Most Recent: 105.188 kg I&O - Last 24 Hours: Intake & Output 01/22/17 01/23/17 01/23/17 22:59 06:59 14:59 Intake Total 1634 1196 Output Total 400 700 Balance 1234 496 Lab Results Last 24 Hours: Laboratory Results - last 24 hr 01/22/17 01/22/17 01/23/17 Range/Units 13:15 20:27 06:06 WBC (4.23-9.07) K/mm3 RBC (4.63-6.08) M/mm3 Hgb (13.7-17.5) gm/L Hct (40.1-51.0) % MCV (79.0-92.2) fl MCH (25.7-32.2) pg MCHC (32.2-35.5) g/dl RDW Std Deviation (35.1-43.9) fL Plt Count (163-337) K/mm3 MPV (9.4-12.3) fl Neut % (Auto) (34.0-67.9) % Lymph % (Auto) (21.8-53.1) % [place] % (Auto) (5.3-12.2) % Eos % (Auto) (0.8-7.0) Baso % (Auto) (0.1-1.2) % Neut # (Auto) (1.78-5.38) K/mm3 Lymph # (Auto) (1.32-3.57) K/mm3 [place] # (Auto) (0.30-0.82) K/mm3 Eos # (Auto) (0.04-0.54) K/mm3 Baso # (Auto) (0.01-0.08) K/mm3 Sodium 140 (136-145) mEq/L Potassium 4.1 (3.5-5.1) mEq/L Chloride 105 (98-107) mEq/L Carbon Dioxide 26 (21-32) mEq/L Anion Gap 13.1 (5-15) BUN 49 H (7-18) mg/dL Creatinine 2.2 H (0.7-1.3) mg/dL Est Cr Clr Drug Dosing 23.21 mL/min Estimated GFR (MDRD) 28 (>60) mL/min BUN/Creatinine Ratio 22.3 H (14-18) Glucose 134 H (83-115) mg/dL POC Glucose 143 H 106 (83-110) mg/dL Calcium 8.6 (8.5-10.1) mg/dL Magnesium (1.8-2.4) mg/dl C-Reactive Protein (<1.0) mg/dL 01/23/17 01/23/17 Range/Units 06:20 06:20 WBC 8.20 (4.23-9.07) K/mm3 RBC 3.22 L (4.63-6.08) M/mm3 Hgb 10.3 L (13.7-17.5) gm/L Hct 31.8 L (40.1-51.0) % MCV 98.8 H (79.0-92.2) fl MCH 32.0 (25.7-32.2) pg MCHC 32.4 (32.2-35.5) g/dl RDW Std Deviation 43.4 (35.1-43.9) fL Plt Count 294 (163-337) K/mm3 MPV 9.8 (9.4-12.3) fl Neut % (Auto) 65.9 (34.0-67.9) % Lymph % (Auto) 23.4 (21.8-53.1) % [place] % (Auto) 8.9 (5.3-12.2) % Eos % (Auto) 1.2 (0.8-7.0) Baso % (Auto) 0.4 (0.1-1.2) % Neut # (Auto) 5.40 H (1.78-5.38) K/mm3 Lymph # (Auto) 1.92 (1.32-3.57) K/mm3 [place] # (Auto) 0.73 (0.30-0.82) K/mm3 Eos # (Auto) 0.10 (0.04-0.54) K/mm3 Baso # (Auto) 0.03 (0.01-0.08) K/mm3 Sodium 139 (136-145) mEq/L Potassium 3.8 (3.5-5.1) mEq/L Chloride 106 (98-107) mEq/L Carbon Dioxide 26 (21-32) mEq/L Anion Gap 10.8 (5-15) BUN 39 H (7-18) mg/dL Creatinine 1.8 H (0.7-1.3) mg/dL Est Cr Clr Drug Dosing 28.37 mL/min Estimated GFR (MDRD) 36 (>60) mL/min BUN/Creatinine Ratio 21.7 H (14-18) Glucose 116 H (83-115) mg/dL POC Glucose (83-110) mg/dL Calcium 8.6 (8.5-10.1) mg/dL Magnesium 2.0 (1.8-2.4) mg/dl C-Reactive Protein 2.6 H* (<1.0) mg/dL Med Orders - Current: Current Medications Acetaminophen (Tylenol) 650 mg PO Q4H PRN PRN Reason: Pain (Mild 1-3)/fever Acetaminophen (Tylenol) 650 mg PO TID [facility] Last Admin: 01/22/17 20:07 Dose: 650 mg Albuterol/Ipratropium (Duoneb 3.0-0.5 Mg/3 Ml) 3 ml NEB Q4H PRN PRN Reason: Shortness Of Breath/wheezing Artificial Tears (Isopto Tears 0.5% Ophth Soln) 2 - 3 ml EYEBOTH BID PRN PRN Reason: Dry Eyes Bisacodyl (Dulcolax) 5 mg PO DAILY PRN PRN Reason: Constipation Citalopram Hydrobromide (Celexa) 30 mg PO DAILY [facility] Last Admin: 01/22/17 09:25 Dose: 30 mg Diltiazem HCl (Dilacor Xr) 240 mg PO DAILY [facility] Last Admin: 01/22/17 09:25 Dose: 240 mg Docusate Sodium (Colace) 100 mg PO BID PRN PRN Reason: Constipation Donepezil HCl (Aricept) 10 mg PO DAILY [facility] Last Admin: 01/22/17 09:25 Dose: 10 mg Fentanyl (Duragesic) 12 mcg TRDERM Q72H [facility] Finasteride (Proscar) 5 mg PO BEDTIME [facility] Last Admin: 01/22/17 20:06 Dose: 5 mg Fish Oil (Fish Oil) 1 gm PO DAILY [facility] Last Admin: 01/22/17 09:25 Dose: 1 gm Hydralazine HCl (Apresoline) 10 mg IVPUSH Q4H PRN PRN Reason: Hypertension Hydromorphone HCl (Dilaudid) 0.5 mg IVPUSH Q3H PRN PRN Reason: Pain (severe 7-10) Promethazine HCl 12.5 mg/ (Sodium Chloride) 50.5 mls @ 100 mls/hr IV Q6H PRN PRN Reason: Nausea/Vomiting Sodium Chloride (Normal Saline) 1,000 mls @ 100 mls/hr IV ASDIRECTED [facility] Last Admin: 01/23/17 06:44 Dose: 100 mls/hr Insulin Detemir (Levemir) 10 unit SUBCUT BEDTIME [facility] Last Admin: 01/22/17 20:28 Dose: 10 units Lisinopril (Prinivil) 20 mg PO BID [facility] Last Admin: 01/22/17 20:06 Dose: 20 mg Loperamide HCl (Imodium) 2 mg PO Q6H PRN PRN Reason: Diarrhea Lorazepam (Ativan) 0.5 mg PO BID [facility] Last Admin: 01/22/17 20:04 Dose: 0.5 mg Lorazepam (Ativan) 0.25 mg IV Q4H PRN PRN Reason: Anxiety Magnesium Hydroxide (Milk Of Magnesia) 30 ml PO Q12H PRN PRN Reason: Constipation Magnesium Sulfate (Pharmacy To Dose - Magnesium Replacement) 1 dose .XX ASDIRECTED [facility] Memantine (Namenda) 10 mg PO BID [facility] Last Admin: 01/22/17 20:06 Dose: 10 mg Metoprolol Tartrate (Lopressor) 5 mg IVPUSH Q4H PRN PRN Reason: Tachycardia Miscellaneous Information (Remove Patch) 1 ea TRDERM Q72H [facility] Multivitamins (Thera) 1 each PO DAILY [facility] Last Admin: 01/22/17 09:25 Dose: 1 each Ondansetron HCl (Zofran) 4 mg IV Q6H PRN PRN Reason: Nausea/Vomiting Oxycodone HCl (Oxycodone) 5 mg PO Q4H PRN PRN Reason: Pain (moderate 4-6) Last Admin: 01/21/17 17:14 Dose: 5 mg Pantoprazole Sodium (Protonix) 40 mg PO BIDMEALS [facility] Last Admin: 01/23/17 06:38 Dose: 40 mg Polyethylene Glycol (Miralax) 17 gm PO DAILY PRN PRN Reason: Constipation Potassium Chloride (Pharmacy To Dose - Potassium Replacement) 1 dose .XX ASDIRECTED [facility] Psyllium Husk (Metamucil Sugar Free) 2 packet PO TID [facility] Last Admin: 01/22/17 20:08 Dose: Not Given Saccharomyces Boulardii (Florastor) 250 mg PO BID [facility] Last Admin: 01/22/17 20:06 Dose: 250 mg Senna/Docusate Sodium (Senna Plus) 1 tab PO BID PRN PRN Reason: Constipation Simvastatin (Zocor) 10 mg PO BEDTIME [facility] Last Admin: 01/22/17 20:06 Dose: 10 mg Sodium Chloride (Saline Flush) 10 ml FLUSH ASDIRECTED PRN PRN Reason: Keep Vein Open Last Admin: 01/20/17 20:39 Dose: 10 ml Tamsulosin HCl (Flomax) 0.4 mg PO DAILY [facility] Last Admin: 01/22/17 09:26 Dose: 0.4 mg Temazepam (Restoril) 7.5 mg PO BEDTIME PRN PRN Reason: Sleep Vit A/Vit C/Vit E/Selen/Cu/Zn/Lutei (Icaps Mv) 1 tab PO DAILY [facility] Last Admin: 01/22/17 09:26 Dose: 1 tab Discontinued Medications Fentanyl (Duragesic) 12 mcg TRDERM ONETIME ONE Stop: 01/20/17 23:31 Last Admin: 01/20/17 23:43 Dose: 12 mcg Hydromorphone HCl (Dilaudid) 0.5 mg IVPUSH ONETIME ONE Stop: 01/20/17 20:34 Last Admin: 01/20/17 20:38 Dose: 0.5 mg Hydromorphone HCl (Dilaudid) 1 mg IVPUSH ONETIME ONE Stop: 01/20/17 21:47 Last Admin: 01/20/17 21:49 Dose: 1 mg Sodium Chloride (Normal Saline) 1,000 mls @ 250 mls/hr IV ONETIME ONE Stop: 01/21/17 01:33 Last Admin: 01/20/17 21:42 Dose: 250 mls/hr Ceftriaxone Sodium 1 gm/ (Sodium Chloride) 100 mls @ 200 mls/hr IV ONETIME ONE Stop: 01/20/17 22:36 Last Admin: 01/20/17 22:30 Dose: 200 mls/hr Sodium Chloride (Normal Saline) 250 mls @ 25 mls/hr IV ASDIRECTED [facility] Last Admin: 01/21/17 02:21 Dose: 25 mls/hr Sodium Chloride (Normal Saline) 1,000 mls @ 50 mls/hr IV ASDIRECTED [facility] Last Admin: 01/22/17 11:21 Dose: 50 mls/hr Sodium Chloride (Normal Saline) 250 mls @ 999 mls/hr IV .BOLUS ONE Stop: 01/22/17 08:43 Last Admin: 01/22/17 23:49 Dose: Not Given Sodium Chloride (Normal Saline) 500 mls @ 350 mls/hr IV .BOLUS ONE Stop: 01/22/17 09:53 Last Admin: 01/22/17 09:24 Dose: 350 mls/hr Magnesium Sulfate 2 gm/ Premix 50 mls @ 50 mls/hr IV ONETIME ONE Stop: 01/22/17 15:44 Last Admin: 01/22/17 15:42 Dose: 50 mls/hr Non-Formulary Medication (Medroxyprogesterone Acetate) 150 mg IM ASDIRECTED BRENDA Ondansetron HCl (Zofran) 4 mg IVPUSH ONETIME ONE Stop: 01/20/17 20:34 Last Admin: 01/20/17 20:38 Dose: 4 mg Potassium Chloride (Klor-Con M20) 20 meq PO Q3H BRENDA Stop: 01/21/17 02:46 Last Admin: 01/21/17 04:23 Dose: 20 meq - Exam General: Alert, Oriented, Cooperative, No Acute Distress, Other (Obese) HEENT: Pupils Equal, Pupils Reactive, EOMI, Mucous Membr. Moist/[place] Neck: Supple, Trachea Midline, No JVD, No Thyromegaly Lungs: Clear to Auscultation, Normal Respiratory Effort Cardiovascular: Regular Rate, Regular Rhythm GI/Abdominal Exam: Normal Bowel Sounds, Soft, Non-Tender, No Organomegaly, No Distention, No Abnormal Bruit, No Mass (Male) Exam: Deferred Back Exam: Normal Inspection, Decreased Range of Motion Extremities: Normal Inspection, Normal Range of Motion, Non-Tender, No Pedal Edema, Normal Capillary Refill. No: Kamlesh's Sign, Increased Warmth, Mottled, Pallor, Redness Peripheral Pulses: 2+: Dorsalis Pedis (L), Dorsalis Pedis (R) Skin: Warm, Dry, Intact Neurological: No New Focal Deficit Psy/Mental Status: Alert, Normal Affect, Normal Mood - Problem List Review Problem List Initiated/Reviewed/Updated: Yes - My Orders Last 24 Hours: My Active Orders 01/22/17 19:00 Sodium Chloride 0.9% [Normal Saline] 1,000 ml IV ASDIRECTED 01/23/17 22:00 Remove Patch 1 ea TRDERM Q72H fentaNYL [Duragesic] 12 mcg TRDERM Q72H - Plan Plan:: Assessment/Plan: Acute: Acute Renal Failure-Nonoliguric, Continues to improve - Baseline is Stage 3 - Cr 3.4---> 2.2 ---> 1.8 - Risk Factors: Dementia, Diuretics: Metolazone and Bumex, Poor fluid intake and HF with unknown EF High Risk Polypharmacy and High Fall Risk Resolved: Intractable Hip Back/Pain S/p Fall - Risk Factor: Advanced Dementia, DM2, HTN, Benzo and Anti-cholinergic Meds - ROM if fairly stable - Has been getting IV Dilaudid - Fentanyl Patch 12 mcg Q72H - PRN oral/IV Pain medications - PT/OT consult S/P Hypotension - Risk factors: Polypharmacy and likely inadequate volume status - Documented BP in ED 123/47 mmHg Hypokalemia - Likely from over diuresis - K is 3.3 - Hold diuretics - Replete with K - Subsequent levels for pharmacy to replete and monitor Lactic Acidosis - 2/2 CKD Stage 3-4 - Likely resolved - LA is 2.1 - Gentle IV Hydration - Will monitor Leukoctyosis - WBC 12.38 ---> 9.84 ---> 8.20 and CRP 4.6 --> 3.2 ---> 2.6 - Stress vs Lung Atelectasis - CXR: formal radiology report reads nothing acute identified - Received onetime dose of IV Rocephin in ED Chronic: HTN HLD HF with unknown EF CAD S/p CABG Constipation CKD Stage 3 Acquired Absence of Kidney BPH Urinary Incontinence OA Alzheimer's Disease Anxiety DM2 Generalized Weakness Difficulty walking Amnesia Obesity with BMI 34 Plan: He remains clinically stable Continue current treatment Routine AM Labs Continue PT/OT Aspiration/Fall Precautions SW/CM for d/c planning Code status: DNR/DNI Possible d/c in AM
[2017-01-23] MEDS: Donepezil 10 MG Tab PO SCH (08:38)
[2017-01-23] MEDS: Tamsulosin 0.4 MG Cap.ER PO SCH (08:40)
[2017-01-23] MEDS: Memantine 10 MG Tab PO SCH ×2 (08:40→20:42)
[2017-01-23] MEDS: Lisinopril 20 MG Tab PO SCH ×2 (08:40→20:41)
[2017-01-23] MEDS: Fish Oil/Omega-3 Fatty Acids 1 Gm Cap PO SCH (08:41)
[2017-01-23] MEDS: Acetaminophen 325 MG Tab PO SCH ×3 (08:42→20:42)
[2017-01-23] MEDS: Citalopram 20 MG Tab PO SCH (08:42)
[2017-01-23] MEDS: LORazepam 0.5 MG Tab PO SCH ×2 (08:44→20:40)
[2017-01-23] MEDS: Diltiazem 240 MG Cap.ER PO SCH (08:45)
[2017-01-23] MEDS: Saccharomyces Boulardii (Probiotic) 250 MG Cap PO SCH ×2 (08:45→20:41)
[2017-01-23] MEDS: Multivitamins with Minerals/Folic Acid/Lutein/Zeaxanth Tab PO SCH (08:45)
[2017-01-23] MEDS: Multivitamins,Therapeutic Tab PO SCH (08:45)
[2017-01-23] MEDS: Psyllium Husk Powder Sugar Free 3.4 GM Packet PO SCH ×3 (11:43→20:39)
[2017-01-23] MEDS: Simvastatin 10 MG Tab PO SCH (20:40)
[2017-01-23] MEDS: Finasteride 5 MG Tab PO SCH (20:42)
[2017-01-23] MEDS: Insulin Detemir 100 Units/ML 3 ML Pen SUBCUT SCH (21:10)
[2017-01-23] MEDS ORDERED: Bumetanide 1 MG/4 ML MDV IVPUSH ONE (21:41)
[2017-01-23] MEDS ORDERED: Sodium Chloride 0.9% 10 ML Syringe FLUSH PRN (21:41)
[2017-01-23] MEDS ORDERED: fentaNYL 12 MCG/HR Transdermal Patch TRDERM SCH (22:00)
[2017-01-24] MEDS ORDERED: Bumetanide 1 MG/4 ML MDV IVPUSH ONE (05:00)
[2017-01-24] MEDS: Pantoprazole 40 MG Tab.CR PO SCH (06:41)
--- NOTE | 2017-01-24 06:59 | PCM.DCSUM1 ---
Discharge Summary - Hospital Course Free Text/Narrative:: This is an 86 yo elderly white male with pst medical hx/o HTN, HLD, HF with unknown EF, CAD S/p CABG, Constipation, CKD Stage 3, Acquired Absence of Kidney , BPH, Urinary Incontinence, OA, Alzheimer's Disease, Anxiety, DM2, Generalized Weakness, Difficulty walking, Amnesia and Obesity with BMI 34 who comes in with complaints of hip and back pain [facility]. Per secondary sources, the patient was found to be hypotensive with SBP in the 80s after the fall. Patient was recently discharged from the hospital after he was treated for ARF. He carries a hx/o bilateral hip replacement. Again, 2 weeks ago he fell and complained of right hip pain during that time. Patient is not a good historian due to his underlying dementia. His initial work up in ED shows a CBC remarkable for WBC of 12.38, RBC of 3.49, hemoglobin of 11.2, hematocrit of 34.3, MCV of 98.3, eosinophils of 0.6%, neutrophil counts of 8.02, and lymphocytes count of 01.4. His chemistry is remarkable for potassium of 3.3, BUN of 68, creatinine of 2.4, glucose of 192, lactic acid of 2.1, CRP of 4.6 and albumin of 2.8. His UA is negative for urinary tract infection. Head CT and cervical spine CT scan both show no acute abnormality. Hip and chest XR both films are not available for review. Patient is being admitted for medical management of intractable pain and non- oliguric acute renal failure. He is DNR/DNI. Patient was gently hydrated with IVF, renal status slowly improved to baseline stage 3 CKD. Pain was controlled with fentanyl patch, he will be discharged with fentanyl patch. Labs were monitored and followed; remained stable. VS remained stable, B/P remained stable. He will be discharged with parameters to hold b/p medications if systolic b/p <100. Blood cultures were negative. He worked with PT/OT and was found to be at prior level of functioning. He is to follow up with PCP, Dr. Barnhart within one week of discharge with BMP to follow renal function to be done at that time with results to Dr. Barnhart for his review. - Discharge Data Discharge Date: 01/24/17 (admit date 01/20/17) Discharge Disposition: DC/Tfer to SNF 03 Condition: Good - Discharge Diagnosis/Problem(s) (1) Chronic renal insufficiency, stage III (moderate) SNOMED Code(s): 294707948 ICD Code: N18.3 - CHRONIC KIDNEY DISEASE, STAGE 3 (MODERATE) Status: Chronic Priority: High Current Visit: Yes (2) Right leg pain SNOMED Code(s): 230306650 ICD Code: M79.604 - PAIN IN RIGHT LEG Status: Chronic Priority: Low Current Visit: Yes (3) Dementia SNOMED Code(s): 38979694 ICD Code: F03.90 - UNSPECIFIED DEMENTIA WITHOUT BEHAVIORAL DISTURBANCE Status: Chronic Priority: Medium Current Visit: Yes Qualifiers: Dementia type: Alzheimer's disease Alzheimer's disease onset: late-onset Dementia behavioral disturbance: without behavioral disturbance Qualified Code (s): G30.1 - Alzheimer's disease with late onset; F02.80 - Dementia in other diseases classified elsewhere without behavioral disturbance (4) Fall as cause of accidental injury at home as place of occurrence SNOMED Code(s): 08513560 ICD Code: W19.XXXA - UNSPECIFIED FALL, INITIAL ENCOUNTER; Y92.009 - UNSP PLACE IN UNSP NON-INSTITUT (PRIVATE) RESIDENCE PLACE Status: Resolved Priority: High Current Visit: Yes Qualifiers: Encounter type: initial encounter Qualified Code(s): W19.XXXA - Unspecified fall, initial encounter; Y92.009 - Unspecified place in unspecified non-institutional (private) residence as the place of occurrence of the external cause - Patient Summary/Data Operative Procedure(s) Performed: None Complications: None Consults: Consultations 01/20/17 22:58 Consult to Case Management [CONS] Routine Consult to Knowledge Manager [CONS] Routine Consult to Spiritual Care [CONS] Routine OT Evaluation and Treatment [CONS] Routine PT Evaluation and Treatment [CONS] Routine Labs Pending at D/C: None Recommended Follow-up Testing/Procedures: Follow up with PCP, Dr. Barnhart within one week of DC, recheck BMP at that time to follow renal function. Planned Operative Procedure(s) after DC: None Hospital Course: As above - Patient Instructions Diet: Heart Healthy Diet Activity: As Tolerated Driving: Do Not Drive Showering/Bathing: May Shower Notify Provider of: Fever, Increased Pain, Swelling and Redness, Nausea and/or Vomiting - Discharge Plan Prescriptions/Med Rec: fentaNYL [Duragesic] 12 mcg TRDERM Q72H #1 box Home Medications: Home Meds Acetaminophen 500 mg PO TID 01/20/17 [History] Carboxymethylcellulose Sodium [Refresh Tears] 2 - 3 drop OP BID PRN 01/20/17 [ History] Citalopram [Celexa] 30 mg PO DAILY 01/20/17 [History] Donepezil HCl [Aricept] 10 mg PO DAILY 01/20/17 [History] FA/Lycopene/Lut/MV,Ca,Iron,Min [Centrum] 1 tab PO DAILY 01/20/17 [History] Finasteride [Proscar] 5 mg PO BEDTIME 01/20/17 [History] Insulin Glargine,Hum.Rec.Anlog [Lantus Solostar] 10 units SQ BEDTIME 01/20/17 [ History] LORazepam [Ativan] 0.5 mg PO BID 01/20/17 [History] Loperamide [Imodium AD] 2 mg PO Q6H PRN 01/20/17 [History] Memantine HCl [Namenda] 10 mg PO BID 01/20/17 [History] [place]-3S/DHA/Epa/Fish Oil [Fish Oil [place]-3 Softgel] 1 cap PO DAILY 01/20/17 [ History] Pantoprazole Sodium [Protonix] 20 mg PO TIDAC 01/20/17 [History] Psyllium Seed (With Sugar) [Metamucil Fiber Wafer] 2 each PO TID 01/20/17 [ History] Saccharomyces Boulardii [Florastor] 250 mg PO BID 01/20/17 [History] Simvastatin [Zocor] 10 mg PO BEDTIME 01/20/17 [History] Tamsulosin [Flomax] 1 cap PO DAILY 01/20/17 [History] Vit A,C & E/Lutein/Minerals [Healthy Eyes] 1 cap PO DAILY 01/20/17 [History] medroxyPROGESTERone Acetate [Depo-Provera] 150 mg IM ASDIRECTED 01/20/17 [ History] traMADol [Ultram] 50 mg PO Q12H PRN 01/20/17 [History] Bumetanide 1 mg PO BID #0 01/24/17 [Rx] Diltiazem [Cardizem CD] 240 mg PO DAILY #0 01/24/17 [Rx] Lisinopril 20 mg PO BID #0 01/24/17 [Rx] Metolazone 2.5 mg PO ASDIRECTED #0 01/24/17 [Rx] fentaNYL [Duragesic] 12 mcg TRDERM Q72H #1 box 01/24/17 [Rx] Patient Handouts: Shoulder Pain, Hip Pain, Chronic Kidney Disease, Ntkr-gh-Mday , Heart Failure, Jhsd-cl-Tqsm, fentanyl skin patch, Managing Your High Blood Pressure, Hypertension Forms: ED Department Discharge Referrals: Mane Barnhart MD [Primary Care Provider] - - Discharge Summary/Plan Comment DC Time >30 min.: Yes (40 min) - General Info Date of Service: 01/24/17 Admission Dx/Problem (Free Text: Acute on chronic kidney disease; Pain Mr Rust is seen this morning, sitting up in chair. Pleasant, no concerns but is with dementia-chronic. VSS. Pain is controlled at this time. Functional Status: Reports: Pain Controlled, Tolerating Diet, Urinating. Denies : New Symptoms - Review of Systems General: Reports: Weakness (generalized/baseline). Denies: Fever Pulmonary: Denies: Shortness of Breath Cardiovascular: Denies: Chest Pain Gastrointestinal: Denies: Abdominal Pain Neurological: Reports: Confusion (pleasant- confused/dementia/baseline) - Patient Data Vitals - Most Recent: Last Vital Signs Temp 99.7 F 01/23/17 23:31 Pulse 74 01/23/17 23:31 Resp 20 01/23/17 23:31 BP 141/71 H 01/23/17 23:31 Pulse Ox 96 01/23/17 23:31 Weight - Most Recent: 229 lb 12.8 oz I&O - Last 24 hours: Intake & Output 01/23/17 01/23/17 01/24/17 14:59 22:59 06:59 Intake Total 210 1487 813 Output Total 200 Balance 210 1487 613 Lab Results - Last 24 hrs: Laboratory Results - last 24 hr 01/23/17 01/24/17 Range/Units 20:54 05:58 POC Glucose 118 H 119 H (83-110) mg/dL Med Orders - Current: Current Medications Acetaminophen (Tylenol) 650 mg PO Q4H PRN PRN Reason: Pain (Mild 1-3)/fever Acetaminophen (Tylenol) 650 mg PO TID [facility] Last Admin: 01/23/17 20:42 Dose: 650 mg Albuterol/Ipratropium (Duoneb 3.0-0.5 Mg/3 Ml) 3 ml NEB Q4H PRN PRN Reason: Shortness Of Breath/wheezing Artificial Tears (Isopto Tears 0.5% Ophth Soln) 2 - 3 ml EYEBOTH BID PRN PRN Reason: Dry Eyes Bisacodyl (Dulcolax) 5 mg PO DAILY PRN PRN Reason: Constipation Citalopram Hydrobromide (Celexa) 30 mg PO DAILY [facility] Last Admin: 01/23/17 08:42 Dose: 30 mg Diltiazem HCl (Dilacor Xr) 240 mg PO DAILY [facility] Last Admin: 01/23/17 08:45 Dose: 240 mg Docusate Sodium (Colace) 100 mg PO BID PRN PRN Reason: Constipation Donepezil HCl (Aricept) 10 mg PO DAILY [facility] Last Admin: 01/23/17 08:38 Dose: 10 mg Fentanyl (Duragesic) 12 mcg TRDERM Q72H [facility] Last Admin: 01/23/17 23:35 Dose: 12 mcg Finasteride (Proscar) 5 mg PO BEDTIME [facility] Last Admin: 01/23/17 20:42 Dose: 5 mg Fish Oil (Fish Oil) 1 gm PO DAILY [facility] Last Admin: 01/23/17 08:41 Dose: 1 gm Hydralazine HCl (Apresoline) 10 mg IVPUSH Q4H PRN PRN Reason: Hypertension Hydromorphone HCl (Dilaudid) 0.5 mg IVPUSH Q3H PRN PRN Reason: Pain (severe 7-10) Last Admin: 01/24/17 04:45 Dose: 0.5 mg Promethazine HCl 12.5 mg/ (Sodium Chloride) 50.5 mls @ 100 mls/hr IV Q6H PRN PRN Reason: Nausea/Vomiting Insulin Detemir (Levemir) 10 unit SUBCUT BEDTIME [facility] Last Admin: 01/23/17 21:10 Dose: 10 units Lisinopril (Prinivil) 20 mg PO BID [facility] Last Admin: 01/23/17 20:41 Dose: 20 mg Loperamide HCl (Imodium) 2 mg PO Q6H PRN PRN Reason: Diarrhea Lorazepam (Ativan) 0.5 mg PO BID [facility] Last Admin: 01/23/17 20:40 Dose: 0.5 mg Lorazepam (Ativan) 0.25 mg IV Q4H PRN PRN Reason: Anxiety Magnesium Hydroxide (Milk Of Magnesia) 30 ml PO Q12H PRN PRN Reason: Constipation Magnesium Sulfate (Pharmacy To Dose - Magnesium Replacement) 1 dose .XX ASDIRECTED [facility] Memantine (Namenda) 10 mg PO BID [facility] Last Admin: 01/23/17 20:42 Dose: 10 mg Metoprolol Tartrate (Lopressor) 5 mg IVPUSH Q4H PRN PRN Reason: Tachycardia Miscellaneous Information (Remove Patch) 1 ea TRDERM Q72H [facility] Last Admin: 01/23/17 23:37 Dose: 1 ea Multivitamins (Thera) 1 each PO DAILY [facility] Last Admin: 01/23/17 08:45 Dose: 1 each Ondansetron HCl (Zofran) 4 mg IV Q6H PRN PRN Reason: Nausea/Vomiting Oxycodone HCl (Oxycodone) 5 mg PO Q4H PRN PRN Reason: Pain (moderate 4-6) Last Admin: 01/21/17 17:14 Dose: 5 mg Pantoprazole Sodium (Protonix) 40 mg PO BIDMEALS [facility] Last Admin: 01/24/17 06:41 Dose: 40 mg Polyethylene Glycol (Miralax) 17 gm PO DAILY PRN PRN Reason: Constipation Potassium Chloride (Pharmacy To Dose - Potassium Replacement) 1 dose .XX ASDIRECTED [facility] Psyllium Husk (Metamucil Sugar Free) 2 packet PO TID [facility] Last Admin: 01/23/17 20:39 Dose: 2 packet Saccharomyces Boulardii (Florastor) 250 mg PO BID [facility] Last Admin: 01/23/17 20:41 Dose: 250 mg Senna/Docusate Sodium (Senna Plus) 1 tab PO BID PRN PRN Reason: Constipation Simvastatin (Zocor) 10 mg PO BEDTIME [facility] Last Admin: 01/23/17 20:40 Dose: 10 mg Sodium Chloride (Saline Flush) 10 ml FLUSH ASDIRECTED PRN PRN Reason: Keep Vein Open Last Admin: 01/20/17 20:39 Dose: 10 ml Sodium Chloride (Saline Flush) 10 ml FLUSH ASDIRECTED PRN PRN Reason: Keep Vein Open Tamsulosin HCl (Flomax) 0.4 mg PO DAILY [facility] Last Admin: 01/23/17 08:40 Dose: 0.4 mg Temazepam (Restoril) 7.5 mg PO BEDTIME PRN PRN Reason: Sleep Vit A/Vit C/Vit E/Selen/Cu/Zn/Lutei (Icaps Mv) 1 tab PO DAILY [facility] Last Admin: 01/23/17 08:45 Dose: 1 tab Discontinued Medications Bumetanide (Bumex) 0.5 mg IVPUSH ONETIME ONE Stop: 01/23/17 21:42 Last Admin: 01/23/17 22:12 Dose: 0.5 mg Bumetanide (Bumex) 0.5 mg IVPUSH ONETIME ONE Stop: 01/24/17 05:01 Last Admin: 01/24/17 05:55 Dose: 0.5 mg Fentanyl (Duragesic) 12 mcg TRDERM ONETIME ONE Stop: 01/20/17 23:31 Last Admin: 01/20/17 23:43 Dose: 12 mcg Hydromorphone HCl (Dilaudid) 0.5 mg IVPUSH ONETIME ONE Stop: 01/20/17 20:34 Last Admin: 01/20/17 20:38 Dose: 0.5 mg Hydromorphone HCl (Dilaudid) 1 mg IVPUSH ONETIME ONE Stop: 01/20/17 21:47 Last Admin: 01/20/17 21:49 Dose: 1 mg Sodium Chloride (Normal Saline) 1,000 mls @ 250 mls/hr IV ONETIME ONE Stop: 01/21/17 01:33 Last Admin: 01/20/17 21:42 Dose: 250 mls/hr Ceftriaxone Sodium 1 gm/ (Sodium Chloride) 100 mls @ 200 mls/hr IV ONETIME ONE Stop: 01/20/17 22:36 Last Admin: 01/20/17 22:30 Dose: 200 mls/hr Sodium Chloride (Normal Saline) 250 mls @ 25 mls/hr IV ASDIRECTED [facility] Last Admin: 01/21/17 02:21 Dose: 25 mls/hr Sodium Chloride (Normal Saline) 1,000 mls @ 50 mls/hr IV ASDIRECTED [facility] Last Admin: 01/22/17 11:21 Dose: 50 mls/hr Sodium Chloride (Normal Saline) 250 mls @ 999 mls/hr IV .BOLUS ONE Stop: 01/22/17 08:43 Last Admin: 01/22/17 23:49 Dose: Not Given Sodium Chloride (Normal Saline) 500 mls @ 350 mls/hr IV .BOLUS ONE Stop: 01/22/17 09:53 Last Admin: 01/22/17 09:24 Dose: 350 mls/hr Magnesium Sulfate 2 gm/ Premix 50 mls @ 50 mls/hr IV ONETIME ONE Stop: 01/22/17 15:44 Last Admin: 01/22/17 15:42 Dose: 50 mls/hr Sodium Chloride (Normal Saline) 1,000 mls @ 100 mls/hr IV [facility]RECTTWO [facility] Last Admin: 01/23/17 17:28 Dose: 100 mls/hr Non-Formulary Medication (Medroxyprogesterone Acetate) 150 mg IM ASDIRECTTWO [facility] Ondansetron HCl (Zofran) 4 mg IVPUSH ONETIME ONE Stop: 01/20/17 20:34 Last Admin: 01/20/17 20:38 Dose: 4 mg Potassium Chloride (Klor-Con M20) 20 meq PO Q3H [facility] Stop: 01/21/17 02:46 Last Admin: 01/21/17 04:23 Dose: 20 meq - Exam Quality Assessment: Reports: DVT Prophylaxis General: Reports: Alert, Cooperative, No Acute Distress HEENT: Reports: Pupils Equal, EOMI, Mucous Membr. Moist/Blue Eye Neck: Reports: Supple Lungs: Reports: Clear to Auscultation, Normal Respiratory Effort, Decreased Breath Sounds (bases) Cardiovascular: Reports: Regular Rate, Regular Rhythm GI/Abdominal Exam: Normal Bowel Sounds, Soft, Non-Tender (Male) Exam: Deferred Rectal (Males) Exam: Deferred Back Exam: Reports: Normal Inspection Skin: Reports: Warm, Dry Neurological: Reports: Other (dementia- pleasant A&O x 1 today) Psy/Mental Status: Reports: Alert *Q Meaningful Use (DIS) - VTE *Q VTE Criteria *Q: - Stroke *Q Stroke Criteria *Q: - AMI *Q AMI Criteria *Q:
[2017-01-24] MEDS: Saccharomyces Boulardii (Probiotic) 250 MG Cap PO SCH (08:06)
[2017-01-24] MEDS: Tamsulosin 0.4 MG Cap.ER PO SCH (08:06)
[2017-01-24] MEDS: Fish Oil/Omega-3 Fatty Acids 1 Gm Cap PO SCH (08:06)
[2017-01-24] MEDS: Multivitamins,Therapeutic Tab PO SCH (08:06)
[2017-01-24] MEDS: Multivitamins with Minerals/Folic Acid/Lutein/Zeaxanth Tab PO SCH (08:07)
[2017-01-24] MEDS: Donepezil 10 MG Tab PO SCH (08:07)
[2017-01-24] MEDS: Memantine 10 MG Tab PO SCH (08:07)
[2017-01-24] MEDS: Diltiazem 240 MG Cap.ER PO SCH (08:07)
[2017-01-24] MEDS: LORazepam 0.5 MG Tab PO SCH (08:07)
[2017-01-24] MEDS: Psyllium Husk Powder Sugar Free 3.4 GM Packet PO SCH (08:08)
[2017-01-24] MEDS: Citalopram 20 MG Tab PO SCH (08:08)
[2017-01-24] MEDS: Acetaminophen 325 MG Tab PO SCH (08:09)
[2017-01-24] MEDS: Lisinopril 20 MG Tab PO SCH (08:13)
[2017-01-24 12:38] VITALS: BP 113/67
== END 2017-01-24 13:00 | DRG 683 ==
LOC: JD.ED 20:12 → UNDOADMIN 22:36 → JD.MS 22:36 → UNDODISIN 01-24 13:00
PROVIDERS: ADMIT Internal Medicine; ATTEND Internal Medicine
DX: N17.9 Acute kidney failure, unspecified (principal); I25.810 Atherosclerosis of coronary artery bypass graft(s) without angina pectoris; I13.0 Hypertensive heart and chronic kidney disease with heart failure and stage 1 through stage 4 chronic kidney disease, or unspecified chronic kidney disease; E87.2 Acidosis; I12.9 Hypertensive chronic kidney disease with stage 1 through stage 4 chronic kidney disease, or unspecified chronic kidney disease; M25.551 Pain in right hip; M54.9 Dorsalgia, unspecified; M79.604 Pain in right leg; E78.00 Pure hypercholesterolemia, unspecified; W19.XXXA Unspecified fall, initial encounter; Y92.129 Unspecified place in nursing home as the place of occurrence of the external cause; I95.9 Hypotension, unspecified; N18.3 Chronic kidney disease, stage 3 (moderate); I50.9 Heart failure, unspecified; Z90.5 Acquired absence of kidney; E87.6 Hypokalemia; D72.829 Elevated white blood cell count, unspecified; Z91.81 History of falling; E78.5 Hyperlipidemia, unspecified; Z68.30 Body mass index [BMI] 30.0-30.9, adult; K59.09 Other constipation; N40.1 Benign prostatic hyperplasia with lower urinary tract symptoms; N39.498 Other specified urinary incontinence; M19.90 Unspecified osteoarthritis, unspecified site; G30.9 Alzheimer's disease, unspecified; F02.80 Dementia in other diseases classified elsewhere, unspecified severity, without behavioral disturbance, psychotic disturbance, mood disturbance, and anxiety; F32.9 Major depressive disorder, single episode, unspecified; F41.9 Anxiety disorder, unspecified; E11.9 Type 2 diabetes mellitus without complications; Z79.4 Long term (current) use of insulin; R53.1 Weakness; R26.2 Difficulty in walking, not elsewhere classified; E66.9 Obesity, unspecified; Z68.34 Body mass index [BMI] 34.0-34.9, adult; Z66 Do not resuscitate; K21.9 Gastro-esophageal reflux disease without esophagitis; Z96.643 Presence of artificial hip joint, bilateral; Z91.011 Allergy to milk products; Z79.899 Other long term (current) drug therapy
CPT/HCPCS: 36415; 51702; 70450; 71010; 72125; 73502; 80053; 81001; 83605; 85025; 85610; 86140; 87040 ×2; 94762; 96361; 96365; 96375; 96376; 99285; J0696; J1170 ×2; J2405; J7030; J7040; J7050; 80048; 82962; 83735; 94760; 97162-GP; 97167-GO; 97530-GO; 99223; 99232; 99239; A9270-GY; J1815-GY; J3475